=== PATIENT | male | born 1960 | race Caucasian/White ===

== ENCOUNTER 2018-02-26 15:33 | Inpatient (IN) | payer OTHER, SELFPAY ==
[2018-02-26] VITALS (10 sets, daily range): BP systolic 123–143; BP diastolic 84–99; PULSE 104–137; RESP 17–26; TEMP 36.9–37.3; O2SAT 96–100; BMI 27.9; BMI 24.9
--- NOTE | 2018-02-26 15:52 | DI.RAD.S_ITS ---
PROCEDURE: XR CHEST 1V INDICATIONS: chest pain TECHNIQUE: One view of the chest was acquired. COMPARISON: None. FINDINGS: Surgical changes and devices: None. Lungs and pleura: No pleural effusions or pneumothorax. No acute consolidation. Scattered subsegmental atelectasis and/or scarring Mediastinum: Mediastinal contours appear normal. Heart size is normal. Bones and chest wall: No suspicious bony lesions. Overlying soft tissues appear unremarkable. IMPRESSION: No acute disease. Dictated by: Quoc Higgins M.D. on 02/26/2018 at 17:05 Approved by: Quoc Higgins M.D. on 02/26/2018 at 17:06
[2018-02-26 16:25] LABS: Add Manual Diff / Slide Review NO; Basophils Absolute Auto 100 /uL (0-100); Basophils Percent Auto 0.8 % (0-2); Eosinophils Absolute Auto 200 /uL (0-450); Eosinophils Percent Auto 2.5 % (2-4); Hematocrit 45.7 % (41-53); Hemoglobin 15.2 g/dL (13.5-17.5); Lymphocytes Absolute Auto 700 /uL (1100-4500); Lymphocytes Percent Auto 8.7 % (25-40); Mean Corpuscular HGB Conc 33.3 % (30-36); Mean Corpuscular Hemoglobin 26.5 PG (26-34); Mean Corpuscular Volume 79.5 fL (80-100); Monocytes Absolute Auto 900 /uL (0-900); Monocytes Percent Auto 10.5 % (3-14); Neutrophils Absolute Auto 6600 /uL (1500-7000); Neutrophils Percent Auto 77.5 % (50-75); Platelet Count 245 X10^3/uL (150-400); Red Blood Cell Count 5.74 X10^6/uL (4.5-5.9); Red Cell Distribution Width 16.1 % (11.6-14.8); White Blood Cell Count 8.5 X10^3/uL (4.5-11.0)
[2018-02-26 16:39] LABS: Alanine Aminotransferase 30 IU/L (21-72); Albumin 4.3 g/dL (3.5-5.0); Albumin Globulin Ratio 1.3 (1.0-2.8); Alkaline Phosphatase 65 U/L (38-126); Aspartate Aminotransferase 28 IU/L (17-59); BUN Creatinine Ratio 12.9 (6-22); Bilirubin Total 0.6 mg/dL (0.2-1.3); Blood Urea Nitrogen 9 mg/dL (9-20); Calcium 9.4 mg/dL (8.4-10.2); Carbon Dioxide 22 mmol/L (22-32); Chloride 108 mmol/L (98-107); Creatine Kinase 44 U/L (55-170); Estimated Glomerular Filt Rate > 60.0 mL/min (>60); Globulin 3.3 g/dL (1.7-4.1); Glucose 77 mg/dL (70-100); HEMOLYSIS 38 (0-50); Lipase 101 U/L (23-300); PTT Partial Thromboplastin Tim 36 SECONDS (26.4-36.2); Potassium 3.9 mmol/L (3.4-5.1); Sodium 141 mmol/L (137-145); Total Protein 7.6 g/dL (6.3-8.2)
[2018-02-26 16:50] LABS: Troponin I < 0.012 ng/mL (0.01-0.034)
--- NOTE | 2018-02-26 17:00 | ED.URI ---
HPI - URI/Sore Throat <ASTRID Adkins - Last Filed: 02/26/18 22:31> General Chief Complaint: Upper Respiratory Symptoms Stated Complaint: cold or flu symptoms Time Seen by Provider: 02/26/18 16:11 Source: patient Mode of arrival: ambulatory Limitations: no limitations History of Present Illness HPI Narrative: 57-year-old male with history of hypo thyroidism as a former smoker here for complaint of cold-like symptoms over the past several days. He has had nasal congestion cough and generalized malaise with chills over this timeframe. He has tolerated p.o. intake. He does report that he has recently moved across country to this area for a new job that he has started yet and has been sleeping in his vehicle until his new job starts. He denies any chest pain. No shortness of breath. He denies any stressors or relievers of his symptoms. He denies any other concerns or complaints at this timeframe. Related Data Home Medications Medication Instructions Recorded Confirmed Antianxiety Med 1 dose PO PRN PRN 02/26/18 02/26/18 esomeprazole magnesium [Nexium] 20 mg PO PRN PRN 02/26/18 02/26/18 levothyroxine 1 dose PO DAILY 02/26/18 02/26/18 Allergies Allergy/AdvReac Type Severity Reaction Status Date / Time Penicillins Allergy Verified 02/26/18 17:00 Review of Systems <ASTRID Adkins - Last Filed: 02/26/18 22:31> Constitutional Reports chills and Reports malaise Eyes Denies change in vision, Denies eye discharge, Denies irritation and Denies loss of vision ENT Ears, Nose, Mouth, and Throat: Denies change in voice, Reports nasal discharge, Denies neck pain and Denies sore throat Cardiovascular Denies chest pain, Denies irregular heart rhythm, Denies lightheadedness, Denies palpitations, Denies dyspnea, Denies dyspnea on exertion and Denies orthopnea Respiratory Denies cough, Denies dyspnea, Denies dyspnea on exertion and Denies wheezing Gastrointestinal Gastrointestinal: Denies abdominal pain, Denies change in bowel habits, Denies diarrhea, Denies nausea and Denies vomiting Genitourinary Denies hematuria, Denies flank pain, Denies urinary incontinence and Denies urinary urgency Musculoskeletal Denies neck pain Integumentary/Breasts Denies pruritus, Denies erythema, Denies rash and Denies wounds Neurologic Denies confusion and Denies loss of vision Psychiatric Denies anxiety, Denies confusion, Denies depression, Denies homicidal ideation and Denies suicidal ideation Endocrine Denies palpitations Hematologic/Lymphatic Denies easy bruising Allergic/Immunologic Denies wheezing Exam <ASTRID Adkins - Last Filed: 02/26/18 22:31> Initial Vital Signs Initial Vital Signs: Vital Signs Temperature 98.7 F 02/26/18 15:47 Pulse Rate 137 H 02/26/18 15:47 Respiratory Rate 17 02/26/18 15:47 Blood Pressure 138/91 H 02/26/18 15:47 Pulse Oximetry 97 02/26/18 15:47 Const General: cooperative and well developed Nutritional Appearance: well nourished Orientation: alert, awake, oriented x3 and not confused HENRI Mouth: oral mucosae normal, oropharynx normal and moist mucous membranes Eyes Conjunctivae: conjunctivae normal Sclera: sclerae normal Pupils: PERRL EOM: EOM intact bilaterally Resp Effort & Inspection: normal respiratory effort, able to speak in complete sentences, no respiratory distress and no use of accessory muscles Auscultation: clear to auscultation bilaterally, no rales, no rhonchi and no wheezes Cardio Rate: regular rate Rhythm: regular rhythm Heart Sounds: no click, no gallops, no murmurs and no rubs Pulses: normal peripheral pulses GI Inspection: non-distended Palpation: soft, no hepatosplenomegaly, No guarding, No pulsatile mass and No tender Auscultation: normal bowel sounds Skin General: no rashes or lesions noted, No jaundice and No petechiae Neuro General: alert, oriented x3, gait normal and no focal motor deficits Speech: speech normal <Rubi Trotter DO - Last Filed: 02/27/18 04:27> Initial Vital Signs Initial Vital Signs: Vital Signs Temperature 98.7 F 02/26/18 15:47 Pulse Rate 137 H 02/26/18 15:47 Respiratory Rate 17 02/26/18 15:47 Blood Pressure 138/91 H 02/26/18 15:47 Pulse Oximetry 97 02/26/18 15:47 Course <ASTRID Adkins - Last Filed: 02/26/18 22:31> Orders Ordered: ED Orders 02/26/18 21:27 Blood Culture Stat 02/26/18 22:30 Respiratory Panel Stat 02/26/18 22:49 Consult to Dietitian, Adult Routine 02/26/18 22:56 Education, smoking cessation ONGOING 02/26/18 23:45 UA Complete [Urinalysis and Microscopic] Stat 02/27/18 BNP [B Type Natriuretic Peptide] Stat 02/27/18 00:12 Troponin I Q6H 02/27/18 00:20 Urine Drug Screen, Rapid Stat 02/27/18 01:06 PEP - Flutter Valve TID 02/27/18 01:31 EC echo doppler complete Routine 02/27/18 06:00 Chest [XR chest 2V] Routine Troponin I Q6H Acetaminophen (Tylenol) 650 mg PO Q6HR PRN PRN Reason: As Needed for Fever/Mild Pain Albuterol (Proventil) 1.25 mg INH RTQ6HR LUCY Last Admin: 02/27/18 04:07 Dose: Not Given Benzonatate (Tessalon Perles) 100 mg PO TID PRN PRN Reason: Cough Last Admin: 02/27/18 01:38 Dose: 100 mg Guaifenesin (Mucinex) 600 mg PO BID [facility] Heparin Sodium (Porcine) (Heparin) 5,000 unit SUBCUT BID [facility] Last Admin: 02/27/18 01:02 Dose: 5,000 unit Sodium Chloride (Normal Saline 0.9%) 1,000 mls @ 75 mls/hr IV CONT [facility] Last Admin: 02/26/18 23:53 Dose: 75 mls/hr Oseltamivir Phosphate (Tamiflu) 75 mg PO BID [facility]Y Pantoprazole Sodium (Protonix) 40 mg PO 0700,2100 [facility] Discontinued Medications Guaifenesin (Mucinex) 600 mg PO NOW ONE Stop: 02/27/18 01:31 Last Admin: 02/27/18 02:14 Dose: 600 mg Sodium Chloride (Normal Saline 0.9%) 1,000 mls @ 1,000 mls/hr IV BOLUS ONE Stop: 02/26/18 18:03 Last Infusion: 02/26/18 18:03 Dose: 0 mls/hr Admin: 02/26/18 17:14 Dose: 1,000 mls/hr Sodium Chloride (Normal Saline 0.9%) 1,000 mls @ 1,000 mls/hr IV BOLUS ONE Stop: 02/26/18 18:44 Last Infusion: 02/26/18 19:24 Dose: 0 mls/hr Admin: 02/26/18 18:03 Dose: 1,000 mls/hr Ketorolac Tromethamine (Toradol) 30 mg IV NOW ONE Stop: 02/26/18 18:10 Last Admin: 02/26/18 18:10 Dose: 30 mg Oseltamivir Phosphate (Tamiflu) 75 mg PO BID LUCY Oseltamivir Phosphate (Tamiflu) 75 mg PO NOW ONE Stop: 02/27/18 01:31 Last Admin: 02/27/18 01:37 Dose: 75 mg Vital Signs - 8 hr 02/26/18 20:46 02/26/18 22:36 02/26/18 22:56 Temperature 98.4 F Pulse Rate 120 H 119 H Respiratory Rate 24 19 Blood Pressure 143/99 H Blood Pressure [Left Arm] 133/87 Pulse Oximetry 96 98 98 02/26/18 23:45 02/27/18 01:26 Temperature 98.9 F Pulse Rate 95 H Respiratory Rate 20 Blood Pressure 154/97 H Blood Pressure [Left Arm] Pulse Oximetry 98 98 <Rubi Trotter, DO - Last Filed: 02/27/18 04:27> Orders Ordered: ED Orders 02/26/18 21:27 Blood Culture Stat 02/26/18 22:30 Respiratory Panel Stat 02/26/18 22:49 Consult to Dietitian, Adult Routine 02/26/18 22:56 Education, smoking cessation ONGOING 02/26/18 23:45 UA Complete [Urinalysis and Microscopic] Stat 02/27/18 BNP [B Type Natriuretic Peptide] Stat 02/27/18 00:12 Troponin I Q6H 02/27/18 00:20 Urine Drug Screen, Rapid Stat 02/27/18 01:06 PEP - Flutter Valve TID 02/27/18 01:31 EC echo doppler complete Routine 02/27/18 06:00 Chest [XR chest 2V] Routine Troponin I Q6H Acetaminophen (Tylenol) 650 mg PO Q6HR PRN PRN Reason: As Needed for Fever/Mild Pain Albuterol (Proventil) 1.25 mg INH RTQ6HR LUCY Last Admin: 02/27/18 04:07 Dose: Not Given Benzonatate (Tessalon Perles) 100 mg PO TID PRN PRN Reason: Cough Last Admin: 02/27/18 01:38 Dose: 100 mg Guaifenesin (Mucinex) 600 mg PO BID [facility] Heparin Sodium (Porcine) (Heparin) 5,000 unit SUBCUT BID [facility] Last Admin: 02/27/18 01:02 Dose: 5,000 unit Sodium Chloride (Normal Saline 0.9%) 1,000 mls @ 75 mls/hr IV CONT [facility] Last Admin: 02/26/18 23:53 Dose: 75 mls/hr Oseltamivir Phosphate (Tamiflu) 75 mg PO BID [facility] Pantoprazole Sodium (Protonix) 40 mg PO 0700,2100 [facility] Discontinued Medications Guaifenesin (Mucinex) 600 mg PO NOW ONE Stop: 02/27/18 01:31 Last Admin: 02/27/18 02:14 Dose: 600 mg Sodium Chloride (Normal Saline 0.9%) 1,000 mls @ 1,000 mls/hr IV BOLUS ONE Stop: 02/26/18 18:03 Last Infusion: 02/26/18 18:03 Dose: 0 mls/hr Admin: 02/26/18 17:14 Dose: 1,000 mls/hr Sodium Chloride (Normal Saline 0.9%) 1,000 mls @ 1,000 mls/hr IV BOLUS ONE Stop: 02/26/18 18:44 Last Infusion: 02/26/18 19:24 Dose: 0 mls/hr Admin: 02/26/18 18:03 Dose: 1,000 mls/hr Ketorolac Tromethamine (Toradol) 30 mg IV NOW ONE Stop: 02/26/18 18:10 Last Admin: 02/26/18 18:10 Dose: 30 mg Oseltamivir Phosphate (Tamiflu) 75 mg PO BID [facility] Oseltamivir Phosphate (Tamiflu) 75 mg PO NOW ONE Stop: 02/27/18 01:31 Last Admin: 02/27/18 01:37 Dose: 75 mg Vital Signs - 8 hr 02/26/18 20:46 02/26/18 22:36 02/26/18 22:56 Temperature 98.4 F Pulse Rate 120 H 119 H Respiratory Rate 24 19 Blood Pressure 143/99 H Blood Pressure [Left Arm] 133/87 Pulse Oximetry 96 98 98 02/26/18 23:45 02/27/18 01:26 Temperature 98.9 F Pulse Rate 95 H Respiratory Rate 20 Blood Pressure 154/97 H Blood Pressure [Left Arm] Pulse Oximetry 98 98 MDM - URI/Sore Throat <ASTRID Adkins - Last Filed: 02/26/18 22:31> Lab Data Result diagrams: 02/26/18 16:15 02/26/18 16:15 Lab Results 02/26/18 02/26/18 02/26/18 Range/Units 15:35 15:53 16:15 WBC 8.5 (4.5-11.0) X10^3/uL RBC 5.74 (4.5-5.9) X10^6/uL Hgb 15.2 (13.5-17.5) g/dL Hct 45.7 (41-53) % MCV 79.5 L (80-100) fL MCH 26.5 (26-34) PG MCHC 33.3 (30-36) % RDW 16.1 H (11.6-14.8) % Plt Count 245 (150-400) X10^3/uL Neut % (Auto) 77.5 H (50-75) % Lymph % (Auto) 8.7 L (25-40) % [place] % (Auto) 10.5 (3-14) % Eos % (Auto) 2.5 (2-4) % Baso % (Auto) 0.8 (0-2) % Neut # (Auto) 6600 (1720-5512) /uL Lymph # (Auto) 700 L (7198-8212) /uL [place] # (Auto) 900 (0-900) /uL Eos # (Auto) 200 (0-450) /uL Baso # (Auto) 100 (0-100) /uL PT (10.1-12.7) SECONDS INR (0.9-1.3) APTT (26.4-36.2) SECONDS D-Dimer (<230) ng/mL Sodium (137-145) mmol/L Potassium (3.4-5.1) mmol/L Chloride (98-107) mmol/L Carbon Dioxide (22-32) mmol/L BUN (9-20) mg/dL Creatinine (0.66-1.25) mg/dL Estimated GFR (>60) mL/min BUN/Creatinine Ratio (6-22) Glucose (70-100) mg/dL Lactate (0.7-2.1) mmol/L Calcium (8.4-10.2) mg/dL Magnesium 2.1 (1.6-2.3) mg/dL Total Bilirubin (0.2-1.3) mg/dL AST (17-59) IU/L ALT (21-72) IU/L Alkaline Phosphatase (38-126) U/L Total Creatine Kinase (55-170) U/L CK-MB (CK-2) CK-MB (CK-2) Rel Index Troponin I (0.01-0.034) ng/mL B-Natriuretic Peptide < 100 (<100) Total Protein (6.3-8.2) g/dL Albumin (3.5-5.0) g/dL Globulin (1.7-4.1) g/dL Albumin/Globulin Ratio (1.0-2.8) Lipase (23-300) U/L Procalcitonin (<0.5) ng/mL TSH (0.47-4.68) uIU/mL Urine Color Urine Appearance Urine pH (4.5-8.0) Ur Specific [place] (1.000-1.035) Urine Protein (Negative) Urine Glucose (UA) (Negative) g/dL Urine Ketones (NEGATIVE) Urine Occult Blood (Negative) Urine Nitrate (Negative) Urine Bilirubin (NEGATIVE) Urine Urobilinogen (0.2) E.U./dL Ur Leukocyte Esterase (NEGATIVE) Urine Opiates Screen (Negative) Ur Oxycodone Screen (Negative) Urine Methadone Screen (Negative) Ur Barbiturates Screen (Negative) U Tricyclic Antidepress (Negative) Ur Phencyclidine Scrn (Negative) Ur Amphetamines Screen (Negative) U Methamphetamines Scrn (Negative) Ur MDMA Scrn (Ecstasy) (Negative) U Benzodiazepines Scrn (Negative) Urine Cocaine Screen (Negative) U Marijuana (THC) Screen (Negative) Ethyl Alcohol mg/dL Chlamy pneumoniae PCR (Not Detect) Adenovirus (PCR) (Not Detect) B.parapertussis DNA PCR (Not Detect) Coronavirus OC43 (PCR) (Not Detect) Coronavirus HKU1 (PCR) (Not Detect) Coronavirus 229E (PCR) (Not Detect) Coronavirus NL63 (PCR) (Not Detect) Human Metapneumovir PCR (Not Detect) Influenza Type A (PCR) (Not Detect) Influenza Type B (PCR) (Not Detect) Influenza A & B (PCR) (Negative) M. pneumoniae (PCR) (Not Detect) Parainfluenza 1 (PCR) (Not Detect) Parainfluenza 2 (PCR) (Not Detect) Parainfluenza 3 (PCR) (Not Detect) Parainfluenza 4 (PCR) (Not Detect) RSV (PCR) (Not Detect) Entero/Rhino (PCR) (Not Detect) 02/26/18 02/26/18 02/26/18 Range/Units 16:15 16:15 16:15 WBC (4.5-11.0) X10^3/uL RBC (4.5-5.9) X10^6/uL Hgb (13.5-17.5) g/dL Hct (41-53) % MCV (80-100) fL MCH (26-34) PG MCHC (30-36) % RDW (11.6-14.8) % Plt Count (150-400) X10^3/uL Neut % (Auto) (50-75) % Lymph % (Auto) (25-40) % [place] % (Auto) (3-14) % Eos % (Auto) (2-4) % Baso % (Auto) (0-2) % Neut # (Auto) (9435-1123) /uL Lymph # (Auto) (1743-8500) /uL [place] # (Auto) (0-900) /uL Eos # (Auto) (0-450) /uL Baso # (Auto) (0-100) /uL PT 12.0 (10.1-12.7) SECONDS INR 1.0 (0.9-1.3) APTT 36 (26.4-36.2) SECONDS D-Dimer 233 H (<230) ng/mL Sodium 141 (137-145) mmol/L Potassium 3.9 (3.4-5.1) mmol/L Chloride 108 H (98-107) mmol/L Carbon Dioxide 22 (22-32) mmol/L BUN 9 (9-20) mg/dL Creatinine 0.70 (0.66-1.25) mg/dL Estimated GFR > 60.0 (>60) mL/min BUN/Creatinine Ratio 12.9 (6-22) Glucose 77 (70-100) mg/dL Lactate (0.7-2.1) mmol/L Calcium 9.4 (8.4-10.2) mg/dL Magnesium (1.6-2.3) mg/dL Total Bilirubin 0.6 (0.2-1.3) mg/dL AST 28 (17-59) IU/L ALT 30 (21-72) IU/L Alkaline Phosphatase 65 (38-126) U/L Total Creatine Kinase 44 L (55-170) U/L CK-MB (CK-2) TNP CK-MB (CK-2) Rel Index TNP Troponin I < 0.012 (0.01-0.034) ng/mL B-Natriuretic Peptide (<100) Total Protein 7.6 (6.3-8.2) g/dL Albumin 4.3 (3.5-5.0) g/dL Globulin 3.3 (1.7-4.1) g/dL Albumin/Globulin Ratio 1.3 (1.0-2.8) Lipase 101 (23-300) U/L Procalcitonin (<0.5) ng/mL TSH (0.47-4.68) uIU/mL Urine Color Urine Appearance Urine pH (4.5-8.0) Ur Specific [place] (1.000-1.035) Urine Protein (Negative) Urine Glucose (UA) (Negative) g/dL Urine Ketones (NEGATIVE) Urine Occult Blood (Negative) Urine Nitrate (Negative) Urine Bilirubin (NEGATIVE) Urine Urobilinogen (0.2) E.U./dL Ur Leukocyte Esterase (NEGATIVE) Urine Opiates Screen (Negative) Ur Oxycodone Screen (Negative) Urine Methadone Screen (Negative) Ur Barbiturates Screen (Negative) U Tricyclic Antidepress (Negative) Ur Phencyclidine Scrn (Negative) Ur Amphetamines Screen (Negative) U Methamphetamines Scrn (Negative) Ur MDMA Scrn (Ecstasy) (Negative) U Benzodiazepines Scrn (Negative) Urine Cocaine Screen (Negative) U Marijuana (THC) Screen (Negative) Ethyl Alcohol mg/dL Chlamy pneumoniae PCR (Not Detect) Adenovirus (PCR) (Not Detect) B.parapertussis DNA PCR (Not Detect) Coronavirus OC43 (PCR) (Not Detect) Coronavirus HKU1 (PCR) (Not Detect) Coronavirus 229E (PCR) (Not Detect) Coronavirus NL63 (PCR) (Not Detect) Human Metapneumovir PCR (Not Detect) Influenza Type A (PCR) (Not Detect) Influenza Type B (PCR) (Not Detect) Influenza A & B (PCR) (Negative) M. pneumoniae (PCR) (Not Detect) Parainfluenza 1 (PCR) (Not Detect) Parainfluenza 2 (PCR) (Not Detect) Parainfluenza 3 (PCR) (Not Detect) Parainfluenza 4 (PCR) (Not Detect) RSV (PCR) (Not Detect) Entero/Rhino (PCR) (Not Detect) 02/26/18 02/26/18 02/26/18 Range/Units 16:15 17:41 17:41 WBC (4.5-11.0) X10^3/uL RBC (4.5-5.9) X10^6/uL Hgb (13.5-17.5) g/dL Hct (41-53) % MCV (80-100) fL MCH (26-34) PG MCHC (30-36) % RDW (11.6-14.8) % Plt Count (150-400) X10^3/uL Neut % (Auto) (50-75) % Lymph % (Auto) (25-40) % [place] % (Auto) (3-14) % Eos % (Auto) (2-4) % Baso % (Auto) (0-2) % Neut # (Auto) (2472-8978) /uL Lymph # (Auto) (5688-7171) /uL [place] # (Auto) (0-900) /uL Eos # (Auto) (0-450) /uL Baso # (Auto) (0-100) /uL PT (10.1-12.7) SECONDS INR (0.9-1.3) APTT (26.4-36.2) SECONDS D-Dimer (<230) ng/mL Sodium (137-145) mmol/L Potassium (3.4-5.1) mmol/L Chloride (98-107) mmol/L Carbon Dioxide (22-32) mmol/L BUN (9-20) mg/dL Creatinine (0.66-1.25) mg/dL Estimated GFR (>60) mL/min BUN/Creatinine Ratio (6-22) Glucose (70-100) mg/dL Lactate 1.9 (0.7-2.1) mmol/L Calcium (8.4-10.2) mg/dL Magnesium (1.6-2.3) mg/dL Total Bilirubin (0.2-1.3) mg/dL AST (17-59) IU/L ALT (21-72) IU/L Alkaline Phosphatase (38-126) U/L Total Creatine Kinase (55-170) U/L CK-MB (CK-2) CK-MB (CK-2) Rel Index Troponin I (0.01-0.034) ng/mL B-Natriuretic Peptide (<100) Total Protein (6.3-8.2) g/dL Albumin (3.5-5.0) g/dL Globulin (1.7-4.1) g/dL Albumin/Globulin Ratio (1.0-2.8) Lipase (23-300) U/L Procalcitonin < 0.05 (<0.5) ng/mL TSH (0.47-4.68) uIU/mL Urine Color Urine Appearance Urine pH (4.5-8.0) Ur Specific [place] (1.000-1.035) Urine Protein (Negative) Urine Glucose (UA) (Negative) g/dL Urine Ketones (NEGATIVE) Urine Occult Blood (Negative) Urine Nitrate (Negative) Urine Bilirubin (NEGATIVE) Urine Urobilinogen (0.2) E.U./dL Ur Leukocyte Esterase (NEGATIVE) Urine Opiates Screen (Negative) Ur Oxycodone Screen (Negative) Urine Methadone Screen (Negative) Ur Barbiturates Screen (Negative) U Tricyclic Antidepress (Negative) Ur Phencyclidine Scrn (Negative) Ur Amphetamines Screen (Negative) U Methamphetamines Scrn (Negative) Ur MDMA Scrn (Ecstasy) (Negative) U Benzodiazepines Scrn (Negative) Urine Cocaine Screen (Negative) U Marijuana (THC) Screen (Negative) Ethyl Alcohol < 10 mg/dL Chlamy pneumoniae PCR (Not Detect) Adenovirus (PCR) (Not Detect) B.parapertussis DNA PCR (Not Detect) Coronavirus OC43 (PCR) (Not Detect) Coronavirus HKU1 (PCR) (Not Detect) Coronavirus 229E (PCR) (Not Detect) Coronavirus NL63 (PCR) (Not Detect) Human Metapneumovir PCR (Not Detect) Influenza Type A (PCR) (Not Detect) Influenza Type B (PCR) (Not Detect) Influenza A & B (PCR) (Negative) M. pneumoniae (PCR) (Not Detect) Parainfluenza 1 (PCR) (Not Detect) Parainfluenza 2 (PCR) (Not Detect) Parainfluenza 3 (PCR) (Not Detect) Parainfluenza 4 (PCR) (Not Detect) RSV (PCR) (Not Detect) Entero/Rhino (PCR) (Not Detect) 02/26/18 02/26/18 02/26/18 Range/Units 19:10 22:30 Unknown WBC (4.5-11.0) X10^3/uL RBC (4.5-5.9) X10^6/uL Hgb (13.5-17.5) g/dL Hct (41-53) % MCV (80-100) fL MCH (26-34) PG MCHC (30-36) % RDW (11.6-14.8) % Plt Count (150-400) X10^3/uL Neut % (Auto) (50-75) % Lymph % (Auto) (25-40) % [place] % (Auto) (3-14) % Eos % (Auto) (2-4) % Baso % (Auto) (0-2) % Neut # (Auto) (2141-4265) /uL Lymph # (Auto) (1356-3057) /uL [place] # (Auto) (0-900) /uL Eos # (Auto) (0-450) /uL Baso # (Auto) (0-100) /uL PT (10.1-12.7) SECONDS INR (0.9-1.3) APTT (26.4-36.2) SECONDS D-Dimer (<230) ng/mL Sodium (137-145) mmol/L Potassium (3.4-5.1) mmol/L Chloride (98-107) mmol/L Carbon Dioxide (22-32) mmol/L BUN (9-20) mg/dL Creatinine (0.66-1.25) mg/dL Estimated GFR (>60) mL/min BUN/Creatinine Ratio (6-22) Glucose (70-100) mg/dL Lactate (0.7-2.1) mmol/L Calcium (8.4-10.2) mg/dL Magnesium (1.6-2.3) mg/dL Total Bilirubin (0.2-1.3) mg/dL AST (17-59) IU/L ALT (21-72) IU/L Alkaline Phosphatase (38-126) U/L Total Creatine Kinase (55-170) U/L CK-MB (CK-2) CK-MB (CK-2) Rel Index Troponin I (0.01-0.034) ng/mL B-Natriuretic Peptide (<100) Total Protein (6.3-8.2) g/dL Albumin (3.5-5.0) g/dL Globulin (1.7-4.1) g/dL Albumin/Globulin Ratio (1.0-2.8) Lipase (23-300) U/L Procalcitonin (<0.5) ng/mL TSH 4.88 H (0.47-4.68) uIU/mL Urine Color Urine Appearance Urine pH (4.5-8.0) Ur Specific [place] (1.000-1.035) Urine Protein (Negative) Urine Glucose (UA) (Negative) g/dL Urine Ketones (NEGATIVE) Urine Occult Blood (Negative) Urine Nitrate (Negative) Urine Bilirubin (NEGATIVE) Urine Urobilinogen (0.2) E.U./dL Ur Leukocyte Esterase (NEGATIVE) Urine Opiates Screen (Negative) Ur Oxycodone Screen (Negative) Urine Methadone Screen (Negative) Ur Barbiturates Screen (Negative) U Tricyclic Antidepress (Negative) Ur Phencyclidine Scrn (Negative) Ur Amphetamines Screen (Negative) U Methamphetamines Scrn (Negative) Ur MDMA Scrn (Ecstasy) (Negative) U Benzodiazepines Scrn (Negative) Urine Cocaine Screen (Negative) U Marijuana (THC) Screen (Negative) Ethyl Alcohol mg/dL Chlamy pneumoniae PCR Not detected (Not Detect) Adenovirus (PCR) Not detected (Not Detect) B.parapertussis DNA PCR Not detected (Not Detect) Coronavirus OC43 (PCR) Not detected (Not Detect) Coronavirus HKU1 (PCR) Not detected (Not Detect) Coronavirus 229E (PCR) Not detected (Not Detect) Coronavirus NL63 (PCR) Not detected (Not Detect) Human Metapneumovir PCR Not detected (Not Detect) Influenza Type A (PCR) Detected H (Not Detect) Influenza Type B (PCR) Not detected (Not Detect) Influenza A & B (PCR) Negative (Negative) M. pneumoniae (PCR) Not detected (Not Detect) Parainfluenza 1 (PCR) Not detected (Not Detect) Parainfluenza 2 (PCR) Not detected (Not Detect) Parainfluenza 3 (PCR) Not detected (Not Detect) Parainfluenza 4 (PCR) Not detected (Not Detect) RSV (PCR) Not detected (Not Detect) Entero/Rhino (PCR) Not detected (Not Detect) 02/27/18 02/27/18 02/27/18 Range/Units 00:12 00:20 00:20 WBC (4.5-11.0) X10^3/uL RBC (4.5-5.9) X10^6/uL Hgb (13.5-17.5) g/dL Hct (41-53) % MCV (80-100) fL MCH (26-34) PG MCHC (30-36) % RDW (11.6-14.8) % Plt Count (150-400) X10^3/uL Neut % (Auto) (50-75) % Lymph % (Auto) (25-40) % [place] % (Auto) (3-14) % Eos % (Auto) (2-4) % Baso % (Auto) (0-2) % Neut # (Auto) (2885-9229) /uL Lymph # (Auto) (4936-2030) /uL [place] # (Auto) (0-900) /uL Eos # (Auto) (0-450) /uL Baso # (Auto) (0-100) /uL PT (10.1-12.7) SECONDS INR (0.9-1.3) APTT (26.4-36.2) SECONDS D-Dimer (<230) ng/mL Sodium (137-145) mmol/L Potassium (3.4-5.1) mmol/L Chloride (98-107) mmol/L Carbon Dioxide (22-32) mmol/L BUN (9-20) mg/dL Creatinine (0.66-1.25) mg/dL Estimated GFR (>60) mL/min BUN/Creatinine Ratio (6-22) Glucose (70-100) mg/dL Lactate (0.7-2.1) mmol/L Calcium (8.4-10.2) mg/dL Magnesium (1.6-2.3) mg/dL Total Bilirubin (0.2-1.3) mg/dL AST (17-59) IU/L ALT (21-72) IU/L Alkaline Phosphatase (38-126) U/L Total Creatine Kinase (55-170) U/L CK-MB (CK-2) CK-MB (CK-2) Rel Index Troponin I < 0.012 (0.01-0.034) ng/mL B-Natriuretic Peptide (<100) Total Protein (6.3-8.2) g/dL Albumin (3.5-5.0) g/dL Globulin (1.7-4.1) g/dL Albumin/Globulin Ratio (1.0-2.8) Lipase (23-300) U/L Procalcitonin (<0.5) ng/mL TSH (0.47-4.68) uIU/mL Urine Color Yellow Urine Appearance Clear Urine pH 7.5 (4.5-8.0) Ur Specific [place] 1.015 (1.000-1.035) Urine Protein Negative (Negative) Urine Glucose (UA) Negative (Negative) g/dL Urine Ketones Negative (NEGATIVE) Urine Occult Blood Negative (Negative) Urine Nitrate Negative (Negative) Urine Bilirubin Negative (NEGATIVE) Urine Urobilinogen 0.2 (0.2) E.U./dL Ur Leukocyte Esterase Negative (NEGATIVE) Urine Opiates Screen Negative (Negative) Ur Oxycodone Screen Negative (Negative) Urine Methadone Screen Negative (Negative) Ur Barbiturates Screen Negative (Negative) U Tricyclic Antidepress Negative (Negative) Ur Phencyclidine Scrn Negative (Negative) Ur Amphetamines Screen Negative (Negative) U Methamphetamines Scrn Negative (Negative) Ur MDMA Scrn (Ecstasy) Negative (Negative) U Benzodiazepines Scrn Negative (Negative) Urine Cocaine Screen Negative (Negative) U Marijuana (THC) Screen Negative (Negative) Ethyl Alcohol mg/dL Chlamy pneumoniae PCR (Not Detect) Adenovirus (PCR) (Not Detect) B.parapertussis DNA PCR (Not Detect) Coronavirus OC43 (PCR) (Not Detect) Coronavirus HKU1 (PCR) (Not Detect) Coronavirus 229E (PCR) (Not Detect) Coronavirus NL63 (PCR) (Not Detect) Human Metapneumovir PCR (Not Detect) Influenza Type A (PCR) (Not Detect) Influenza Type B (PCR) (Not Detect) Influenza A & B (PCR) (Negative) M. pneumoniae (PCR) (Not Detect) Parainfluenza 1 (PCR) (Not Detect) Parainfluenza 2 (PCR) (Not Detect) Parainfluenza 3 (PCR) (Not Detect) Parainfluenza 4 (PCR) (Not Detect) RSV (PCR) (Not Detect) Entero/Rhino (PCR) (Not Detect) Urine Dip Bedside Urine Glucose Negative Bedside Urine Bilirubin - Negative Bedside Urine Ketone - Negative Urine Specific [place] 1.010 Bedside Urine Occult Blood - Negative Bedside Urine pH 7.5 Bedside Urine Protein - Negative Bedside Urine Urobilinogen - Negative Bedside Urine Nitrite - Negative Bedside Urine Leukocytes - Negative Esterase Imaging Data Chest x-ray: Radiologist's impression: [address] [address] XRay Report Signed Patient: Naveed Mayen [facility]#: [id number] : 9Acct:[id number] Age/Sex: 57 / MDate of Service: 02/26/18 Loc: ED Accession Number: [id number] Procedure: XR chest 1V Ordering Provider: Wes Serrano D.O. PROCEDURE: XR CHEST 1V INDICATIONS: chest pain TECHNIQUE: One view of the chest was acquired. COMPARISON: None. FINDINGS: Surgical changes and devices: None. Lungs and pleura: No pleural effusions or pneumothorax. No acute consolidation. Scattered subsegmental atelectasis and/or scarring Mediastinum: Mediastinal contours appear normal. Heart size is normal. Bones and chest wall: No suspicious bony lesions. Overlying soft tissues appear unremarkable. IMPRESSION: No acute disease. Dictated by: Quoc Higgins M.D. on 02/26/2018 at 17:05 Approved by: Quoc Higgins M.D. on 02/26/2018 at 17:06 ECG Data Interpretation: EKG shows a sinus tachycardia with no ST elevation or depression. No ectopy. Ventricular rate of 135. MDM Narrative Medical decision making narrative: CBC and Chem panel were obtained were unremarkable. Cardiac enzymes were obtained were negative. D-dimer was at 2:30 a.m. less than 500 for concern for D-dimer. EKG shows sinus tachycardia no ST elevation or depression no ectopy. Chest x-ray was obtained was negative. Influenza swab was obtained and was negative. Procalcitonin and lactate were negative. Patient was given 2 L of fluids in the emergency room. Heart rate did not improve after fluids. He presents as having a viral upper respiratory infection however, Due to concern for heart rate did not respond to hydration patient is admitted to observation. <Rubi Trotter, DO - Last Filed: 02/27/18 04:27> Lab Data Attestation: I reviewed the patient's lab results. Lab Results 02/26/18 02/26/18 02/26/18 Range/Units 15:35 15:53 16:15 WBC 8.5 (4.5-11.0) X10^3/uL RBC 5.74 (4.5-5.9) X10^6/uL Hgb 15.2 (13.5-17.5) g/dL Hct 45.7 (41-53) % MCV 79.5 L (80-100) fL MCH 26.5 (26-34) PG MCHC 33.3 (30-36) % RDW 16.1 H (11.6-14.8) % Plt Count 245 (150-400) X10^3/uL Neut % (Auto) 77.5 H (50-75) % Lymph % (Auto) 8.7 L (25-40) % [place] % (Auto) 10.5 (3-14) % Eos % (Auto) 2.5 (2-4) % Baso % (Auto) 0.8 (0-2) % Neut # (Auto) 6600 (6720-5196) /uL Lymph # (Auto) 700 L (4932-0901) /uL [place] # (Auto) 900 (0-900) /uL Eos # (Auto) 200 (0-450) /uL Baso # (Auto) 100 (0-100) /uL PT (10.1-12.7) SECONDS INR (0.9-1.3) APTT (26.4-36.2) SECONDS D-Dimer (<230) ng/mL Sodium (137-145) mmol/L Potassium (3.4-5.1) mmol/L Chloride (98-107) mmol/L Carbon Dioxide (22-32) mmol/L BUN (9-20) mg/dL Creatinine (0.66-1.25) mg/dL Estimated GFR (>60) mL/min BUN/Creatinine Ratio (6-22) Glucose (70-100) mg/dL Lactate (0.7-2.1) mmol/L Calcium (8.4-10.2) mg/dL Magnesium 2.1 (1.6-2.3) mg/dL Total Bilirubin (0.2-1.3) mg/dL AST (17-59) IU/L ALT (21-72) IU/L Alkaline Phosphatase (38-126) U/L Total Creatine Kinase (55-170) U/L CK-MB (CK-2) CK-MB (CK-2) Rel Index Troponin I (0.01-0.034) ng/mL B-Natriuretic Peptide < 100 (<100) Total Protein (6.3-8.2) g/dL Albumin (3.5-5.0) g/dL Globulin (1.7-4.1) g/dL Albumin/Globulin Ratio (1.0-2.8) Lipase (23-300) U/L Procalcitonin (<0.5) ng/mL TSH (0.47-4.68) uIU/mL Urine Color Urine Appearance Urine pH (4.5-8.0) Ur Specific [place] (1.000-1.035) Urine Protein (Negative) Urine Glucose (UA) (Negative) g/dL Urine Ketones (NEGATIVE) Urine Occult Blood (Negative) Urine Nitrate (Negative) Urine Bilirubin (NEGATIVE) Urine Urobilinogen (0.2) E.U./dL Ur Leukocyte Esterase (NEGATIVE) Urine Opiates Screen (Negative) Ur Oxycodone Screen (Negative) Urine Methadone Screen (Negative) Ur Barbiturates Screen (Negative) U Tricyclic Antidepress (Negative) Ur Phencyclidine Scrn (Negative) Ur Amphetamines Screen (Negative) U Methamphetamines Scrn (Negative) Ur MDMA Scrn (Ecstasy) (Negative) U Benzodiazepines Scrn (Negative) Urine Cocaine Screen (Negative) U Marijuana (THC) Screen (Negative) Ethyl Alcohol mg/dL Chlamy pneumoniae PCR (Not Detect) Adenovirus (PCR) (Not Detect) B.parapertussis DNA PCR (Not Detect) Coronavirus OC43 (PCR) (Not Detect) Coronavirus HKU1 (PCR) (Not Detect) Coronavirus 229E (PCR) (Not Detect) Coronavirus NL63 (PCR) (Not Detect) Human Metapneumovir PCR (Not Detect) Influenza Type A (PCR) (Not Detect) Influenza Type B (PCR) (Not Detect) Influenza A & B (PCR) (Negative) M. pneumoniae (PCR) (Not Detect) Parainfluenza 1 (PCR) (Not Detect) Parainfluenza 2 (PCR) (Not Detect) Parainfluenza 3 (PCR) (Not Detect) Parainfluenza 4 (PCR) (Not Detect) RSV (PCR) (Not Detect) Entero/Rhino (PCR) (Not Detect) 02/26/18 02/26/18 02/26/18 Range/Units 16:15 16:15 16:15 WBC (4.5-11.0) X10^3/uL RBC (4.5-5.9) X10^6/uL Hgb (13.5-17.5) g/dL Hct (41-53) % MCV (80-100) fL MCH (26-34) PG MCHC (30-36) % RDW (11.6-14.8) % Plt Count (150-400) X10^3/uL Neut % (Auto) (50-75) % Lymph % (Auto) (25-40) % [place] % (Auto) (3-14) % Eos % (Auto) (2-4) % Baso % (Auto) (0-2) % Neut # (Auto) (2296-8848) /uL Lymph # (Auto) (6728-1018) /uL [place] # (Auto) (0-900) /uL Eos # (Auto) (0-450) /uL Baso # (Auto) (0-100) /uL PT 12.0 (10.1-12.7) SECONDS INR 1.0 (0.9-1.3) APTT 36 (26.4-36.2) SECONDS D-Dimer 233 H (<230) ng/mL Sodium 141 (137-145) mmol/L Potassium 3.9 (3.4-5.1) mmol/L Chloride 108 H (98-107) mmol/L Carbon Dioxide 22 (22-32) mmol/L BUN 9 (9-20) mg/dL Creatinine 0.70 (0.66-1.25) mg/dL Estimated GFR > 60.0 (>60) mL/min BUN/Creatinine Ratio 12.9 (6-22) Glucose 77 (70-100) mg/dL Lactate (0.7-2.1) mmol/L Calcium 9.4 (8.4-10.2) mg/dL Magnesium (1.6-2.3) mg/dL Total Bilirubin 0.6 (0.2-1.3) mg/dL AST 28 (17-59) IU/L ALT 30 (21-72) IU/L Alkaline Phosphatase 65 (38-126) U/L Total Creatine Kinase 44 L (55-170) U/L CK-MB (CK-2) TNP CK-MB (CK-2) Rel Index TNP Troponin I < 0.012 (0.01-0.034) ng/mL B-Natriuretic Peptide (<100) Total Protein 7.6 (6.3-8.2) g/dL Albumin 4.3 (3.5-5.0) g/dL Globulin 3.3 (1.7-4.1) g/dL Albumin/Globulin Ratio 1.3 (1.0-2.8) Lipase 101 (23-300) U/L Procalcitonin (<0.5) ng/mL TSH (0.47-4.68) uIU/mL Urine Color Urine Appearance Urine pH (4.5-8.0) Ur Specific [place] (1.000-1.035) Urine Protein (Negative) Urine Glucose (UA) (Negative) g/dL Urine Ketones (NEGATIVE) Urine Occult Blood (Negative) Urine Nitrate (Negative) Urine Bilirubin (NEGATIVE) Urine Urobilinogen (0.2) E.U./dL Ur Leukocyte Esterase (NEGATIVE) Urine Opiates Screen (Negative) Ur Oxycodone Screen (Negative) Urine Methadone Screen (Negative) Ur Barbiturates Screen (Negative) U Tricyclic Antidepress (Negative) Ur Phencyclidine Scrn (Negative) Ur Amphetamines Screen (Negative) U Methamphetamines Scrn (Negative) Ur MDMA Scrn (Ecstasy) (Negative) U Benzodiazepines Scrn (Negative) Urine Cocaine Screen (Negative) U Marijuana (THC) Screen (Negative) Ethyl Alcohol mg/dL Chlamy pneumoniae PCR (Not Detect) Adenovirus (PCR) (Not Detect) B.parapertussis DNA PCR (Not Detect) Coronavirus OC43 (PCR) (Not Detect) Coronavirus HKU1 (PCR) (Not Detect) Coronavirus 229E (PCR) (Not Detect) Coronavirus NL63 (PCR) (Not Detect) Human Metapneumovir PCR (Not Detect) Influenza Type A (PCR) (Not Detect) Influenza Type B (PCR) (Not Detect) Influenza A & B (PCR) (Negative) M. pneumoniae (PCR) (Not Detect) Parainfluenza 1 (PCR) (Not Detect) Parainfluenza 2 (PCR) (Not Detect) Parainfluenza 3 (PCR) (Not Detect) Parainfluenza 4 (PCR) (Not Detect) RSV (PCR) (Not Detect) Entero/Rhino (PCR) (Not Detect) 02/26/18 02/26/18 02/26/18 Range/Units 16:15 17:41 17:41 WBC (4.5-11.0) X10^3/uL RBC (4.5-5.9) X10^6/uL Hgb (13.5-17.5) g/dL Hct (41-53) % MCV (80-100) fL MCH (26-34) PG MCHC (30-36) % RDW (11.6-14.8) % Plt Count (150-400) X10^3/uL Neut % (Auto) (50-75) % Lymph % (Auto) (25-40) % [place] % (Auto) (3-14) % Eos % (Auto) (2-4) % Baso % (Auto) (0-2) % Neut # (Auto) (7162-2065) /uL Lymph # (Auto) (4433-0970) /uL [place] # (Auto) (0-900) /uL Eos # (Auto) (0-450) /uL Baso # (Auto) (0-100) /uL PT (10.1-12.7) SECONDS INR (0.9-1.3) APTT (26.4-36.2) SECONDS D-Dimer (<230) ng/mL Sodium (137-145) mmol/L Potassium (3.4-5.1) mmol/L Chloride (98-107) mmol/L Carbon Dioxide (22-32) mmol/L BUN (9-20) mg/dL Creatinine (0.66-1.25) mg/dL Estimated GFR (>60) mL/min BUN/Creatinine Ratio (6-22) Glucose (70-100) mg/dL Lactate 1.9 (0.7-2.1) mmol/L Calcium (8.4-10.2) mg/dL Magnesium (1.6-2.3) mg/dL Total Bilirubin (0.2-1.3) mg/dL AST (17-59) IU/L ALT (21-72) IU/L Alkaline Phosphatase (38-126) U/L Total Creatine Kinase (55-170) U/L CK-MB (CK-2) CK-MB (CK-2) Rel Index Troponin I (0.01-0.034) ng/mL B-Natriuretic Peptide (<100) Total Protein (6.3-8.2) g/dL Albumin (3.5-5.0) g/dL Globulin (1.7-4.1) g/dL Albumin/Globulin Ratio (1.0-2.8) Lipase (23-300) U/L Procalcitonin < 0.05 (<0.5) ng/mL TSH (0.47-4.68) uIU/mL Urine Color Urine Appearance Urine pH (4.5-8.0) Ur Specific [place] (1.000-1.035) Urine Protein (Negative) Urine Glucose (UA) (Negative) g/dL Urine Ketones (NEGATIVE) Urine Occult Blood (Negative) Urine Nitrate (Negative) Urine Bilirubin (NEGATIVE) Urine Urobilinogen (0.2) E.U./dL Ur Leukocyte Esterase (NEGATIVE) Urine Opiates Screen (Negative) Ur Oxycodone Screen (Negative) Urine Methadone Screen (Negative) Ur Barbiturates Screen (Negative) U Tricyclic Antidepress (Negative) Ur Phencyclidine Scrn (Negative) Ur Amphetamines Screen (Negative) U Methamphetamines Scrn (Negative) Ur MDMA Scrn (Ecstasy) (Negative) U Benzodiazepines Scrn (Negative) Urine Cocaine Screen (Negative) U Marijuana (THC) Screen (Negative) Ethyl Alcohol < 10 mg/dL Chlamy pneumoniae PCR (Not Detect) Adenovirus (PCR) (Not Detect) B.parapertussis DNA PCR (Not Detect) Coronavirus OC43 (PCR) (Not Detect) Coronavirus HKU1 (PCR) (Not Detect) Coronavirus 229E (PCR) (Not Detect) Coronavirus NL63 (PCR) (Not Detect) Human Metapneumovir PCR (Not Detect) Influenza Type A (PCR) (Not Detect) Influenza Type B (PCR) (Not Detect) Influenza A & B (PCR) (Negative) M. pneumoniae (PCR) (Not Detect) Parainfluenza 1 (PCR) (Not Detect) Parainfluenza 2 (PCR) (Not Detect) Parainfluenza 3 (PCR) (Not Detect) Parainfluenza 4 (PCR) (Not Detect) RSV (PCR) (Not Detect) Entero/Rhino (PCR) (Not Detect) 02/26/18 02/26/18 02/26/18 Range/Units 19:10 22:30 Unknown WBC (4.5-11.0) X10^3/uL RBC (4.5-5.9) X10^6/uL Hgb (13.5-17.5) g/dL Hct (41-53) % MCV (80-100) fL MCH (26-34) PG MCHC (30-36) % RDW (11.6-14.8) % Plt Count (150-400) X10^3/uL Neut % (Auto) (50-75) % Lymph % (Auto) (25-40) % [place] % (Auto) (3-14) % Eos % (Auto) (2-4) % Baso % (Auto) (0-2) % Neut # (Auto) (6477-6356) /uL Lymph # (Auto) (3530-3324) /uL [place] # (Auto) (0-900) /uL Eos # (Auto) (0-450) /uL Baso # (Auto) (0-100) /uL PT (10.1-12.7) SECONDS INR (0.9-1.3) APTT (26.4-36.2) SECONDS D-Dimer (<230) ng/mL Sodium (137-145) mmol/L Potassium (3.4-5.1) mmol/L Chloride (98-107) mmol/L Carbon Dioxide (22-32) mmol/L BUN (9-20) mg/dL Creatinine (0.66-1.25) mg/dL Estimated GFR (>60) mL/min BUN/Creatinine Ratio (6-22) Glucose (70-100) mg/dL Lactate (0.7-2.1) mmol/L Calcium (8.4-10.2) mg/dL Magnesium (1.6-2.3) mg/dL Total Bilirubin (0.2-1.3) mg/dL AST (17-59) IU/L ALT (21-72) IU/L Alkaline Phosphatase (38-126) U/L Total Creatine Kinase (55-170) U/L CK-MB (CK-2) CK-MB (CK-2) Rel Index Troponin I (0.01-0.034) ng/mL B-Natriuretic Peptide (<100) Total Protein (6.3-8.2) g/dL Albumin (3.5-5.0) g/dL Globulin (1.7-4.1) g/dL Albumin/Globulin Ratio (1.0-2.8) Lipase (23-300) U/L Procalcitonin (<0.5) ng/mL TSH 4.88 H (0.47-4.68) uIU/mL Urine Color Urine Appearance Urine pH (4.5-8.0) Ur Specific [place] (1.000-1.035) Urine Protein (Negative) Urine Glucose (UA) (Negative) g/dL Urine Ketones (NEGATIVE) Urine Occult Blood (Negative) Urine Nitrate (Negative) Urine Bilirubin (NEGATIVE) Urine Urobilinogen (0.2) E.U./dL Ur Leukocyte Esterase (NEGATIVE) Urine Opiates Screen (Negative) Ur Oxycodone Screen (Negative) Urine Methadone Screen (Negative) Ur Barbiturates Screen (Negative) U Tricyclic Antidepress (Negative) Ur Phencyclidine Scrn (Negative) Ur Amphetamines Screen (Negative) U Methamphetamines Scrn (Negative) Ur MDMA Scrn (Ecstasy) (Negative) U Benzodiazepines Scrn (Negative) Urine Cocaine Screen (Negative) U Marijuana (THC) Screen (Negative) Ethyl Alcohol mg/dL Chlamy pneumoniae PCR Not detected (Not Detect) Adenovirus (PCR) Not detected (Not Detect) B.parapertussis DNA PCR Not detected (Not Detect) Coronavirus OC43 (PCR) Not detected (Not Detect) Coronavirus HKU1 (PCR) Not detected (Not Detect) Coronavirus 229E (PCR) Not detected (Not Detect) Coronavirus NL63 (PCR) Not detected (Not Detect) Human Metapneumovir PCR Not detected (Not Detect) Influenza Type A (PCR) Detected H (Not Detect) Influenza Type B (PCR) Not detected (Not Detect) Influenza A & B (PCR) Negative (Negative) M. pneumoniae (PCR) Not detected (Not Detect) Parainfluenza 1 (PCR) Not detected (Not Detect) Parainfluenza 2 (PCR) Not detected (Not Detect) Parainfluenza 3 (PCR) Not detected (Not Detect) Parainfluenza 4 (PCR) Not detected (Not Detect) RSV (PCR) Not detected (Not Detect) Entero/Rhino (PCR) Not detected (Not Detect) 02/27/18 02/27/18 02/27/18 Range/Units 00:12 00:20 00:20 WBC (4.5-11.0) X10^3/uL RBC (4.5-5.9) X10^6/uL Hgb (13.5-17.5) g/dL Hct (41-53) % MCV (80-100) fL MCH (26-34) PG MCHC (30-36) % RDW (11.6-14.8) % Plt Count (150-400) X10^3/uL Neut % (Auto) (50-75) % Lymph % (Auto) (25-40) % [place] % (Auto) (3-14) % Eos % (Auto) (2-4) % Baso % (Auto) (0-2) % Neut # (Auto) (0452-9614) /uL Lymph # (Auto) (6788-3060) /uL [place] # (Auto) (0-900) /uL Eos # (Auto) (0-450) /uL Baso # (Auto) (0-100) /uL PT (10.1-12.7) SECONDS INR (0.9-1.3) APTT (26.4-36.2) SECONDS D-Dimer (<230) ng/mL Sodium (137-145) mmol/L Potassium (3.4-5.1) mmol/L Chloride (98-107) mmol/L Carbon Dioxide (22-32) mmol/L BUN (9-20) mg/dL Creatinine (0.66-1.25) mg/dL Estimated GFR (>60) mL/min BUN/Creatinine Ratio (6-22) Glucose (70-100) mg/dL Lactate (0.7-2.1) mmol/L Calcium (8.4-10.2) mg/dL Magnesium (1.6-2.3) mg/dL Total Bilirubin (0.2-1.3) mg/dL AST (17-59) IU/L ALT (21-72) IU/L Alkaline Phosphatase (38-126) U/L Total Creatine Kinase (55-170) U/L CK-MB (CK-2) CK-MB (CK-2) Rel Index Troponin I < 0.012 (0.01-0.034) ng/mL B-Natriuretic Peptide (<100) Total Protein (6.3-8.2) g/dL Albumin (3.5-5.0) g/dL Globulin (1.7-4.1) g/dL Albumin/Globulin Ratio (1.0-2.8) Lipase (23-300) U/L Procalcitonin (<0.5) ng/mL TSH (0.47-4.68) uIU/mL Urine Color Yellow Urine Appearance Clear Urine pH 7.5 (4.5-8.0) Ur Specific [place] 1.015 (1.000-1.035) Urine Protein Negative (Negative) Urine Glucose (UA) Negative (Negative) g/dL Urine Ketones Negative (NEGATIVE) Urine Occult Blood Negative (Negative) Urine Nitrate Negative (Negative) Urine Bilirubin Negative (NEGATIVE) Urine Urobilinogen 0.2 (0.2) E.U./dL Ur Leukocyte Esterase Negative (NEGATIVE) Urine Opiates Screen Negative (Negative) Ur Oxycodone Screen Negative (Negative) Urine Methadone Screen Negative (Negative) Ur Barbiturates Screen Negative (Negative) U Tricyclic Antidepress Negative (Negative) Ur Phencyclidine Scrn Negative (Negative) Ur Amphetamines Screen Negative (Negative) U Methamphetamines Scrn Negative (Negative) Ur MDMA Scrn (Ecstasy) Negative (Negative) U Benzodiazepines Scrn Negative (Negative) Urine Cocaine Screen Negative (Negative) U Marijuana (THC) Screen Negative (Negative) Ethyl Alcohol mg/dL Chlamy pneumoniae PCR (Not Detect) Adenovirus (PCR) (Not Detect) B.parapertussis DNA PCR (Not Detect) Coronavirus OC43 (PCR) (Not Detect) Coronavirus HKU1 (PCR) (Not Detect) Coronavirus 229E (PCR) (Not Detect) Coronavirus NL63 (PCR) (Not Detect) Human Metapneumovir PCR (Not Detect) Influenza Type A (PCR) (Not Detect) Influenza Type B (PCR) (Not Detect) Influenza A & B (PCR) (Negative) M. pneumoniae (PCR) (Not Detect) Parainfluenza 1 (PCR) (Not Detect) Parainfluenza 2 (PCR) (Not Detect) Parainfluenza 3 (PCR) (Not Detect) Parainfluenza 4 (PCR) (Not Detect) RSV (PCR) (Not Detect) Entero/Rhino (PCR) (Not Detect) Urine Dip Bedside Urine Glucose Negative Bedside Urine Bilirubin - Negative Bedside Urine Ketone - Negative Urine Specific [place] 1.010 Bedside Urine Occult Blood - Negative Bedside Urine pH 7.5 Bedside Urine Protein - Negative Bedside Urine Urobilinogen - Negative Bedside Urine Nitrite - Negative Bedside Urine Leukocytes - Negative Esterase ECG Data Attestation: I personally reviewed and interpreted this ECG as follows: Prior ECG tracings: not available for review Interpretation: Normal sinus rhythm rate [address] changes MDM Narrative Medical decision making narrative: I discussed case with Hilton nolasco. Patient is persistently tachycardic despite IV fluids and fever control. His low risk for any PE. However patient remains tachycardic with unexplained reason. Agree with observation. Discharge Plan Departure Patient Disposition: Admitted As Inpatient Clinical Impression: Tachycardia, Upper respiratory infection Discharge Date/Time: 02/26/18 22:31 Interventions: ED Discharge Assessment Last Done: 02/26/18 22:29 Admit Date/Time: 02/26/18 21:32 Admit Provider: Frannie Gould <Rubi Trotter, - Last Filed: 02/27/18 04:27> Cosign ED Attending Cosbub[place] Attestation: I was immediately available in the department for consultation. Documentation has been reviewed. I agree with assessment and plan.
[2018-02-26] MEDS: SODIUM CHLORIDE 0.9% 1,000 ML 1000 ML IV ×2 (17:14→18:03)
[2018-02-26 17:59] LABS: Lactate (Lactic Acid) 1.9 mmol/L (0.7-2.1)
[2018-02-26] MEDS: KETOROLAC 60 MG/2 ML VIAL 30 MG IV (18:10)
[2018-02-26 18:17] LABS: Procalcitonin < 0.05 ng/mL (<0.5)
--- NOTE | 2018-02-26 19:36 | ED_ITS ---
HPI - URI/Sore Throat <ASTRID Adkins - Last Filed: 02/26/18 22:31> General Chief Complaint: Upper Respiratory Symptoms Stated Complaint: cold or flu symptoms Time Seen by Provider: 02/26/18 16:11 Source: patient Mode of arrival: ambulatory Limitations: no limitations History of Present Illness HPI Narrative: 57-year-old male with history of hypo thyroidism as a former smoker here for complaint of cold-like symptoms over the past several days. He has had nasal congestion cough and generalized malaise with chills over this timeframe. He has tolerated p.o. intake. He does report that he has recently moved across country to this area for a new job that he has started yet and has been sleeping in his vehicle until his new job starts. He denies any chest pain. No shortness of breath. He denies any stressors or relievers of his symptoms. He denies any other concerns or complaints at this timeframe. Related Data Home Medications Medication Instructions Recorded Confirmed Antianxiety Med 1 dose PO PRN PRN 02/26/18 02/26/18 esomeprazole magnesium [Nexium] 20 mg PO PRN PRN 02/26/18 02/26/18 levothyroxine 1 dose PO DAILY 02/26/18 02/26/18 Allergies Allergy/AdvReac Type Severity Reaction Status Date / Time Penicillins Allergy Verified 02/26/18 17:00 Review of Systems <ASTRID Adkins - Last Filed: 02/26/18 22:31> Constitutional Reports chills and Reports malaise Eyes Denies change in vision, Denies eye discharge, Denies irritation and Denies loss of vision ENT Ears, Nose, Mouth, and Throat: Denies change in voice, Reports nasal discharge, Denies neck pain and Denies sore throat Cardiovascular Denies chest pain, Denies irregular heart rhythm, Denies lightheadedness, Denies palpitations, Denies dyspnea, Denies dyspnea on exertion and Denies orthopnea Respiratory Denies cough, Denies dyspnea, Denies dyspnea on exertion and Denies wheezing Gastrointestinal Gastrointestinal: Denies abdominal pain, Denies change in bowel habits, Denies diarrhea, Denies nausea and Denies vomiting Genitourinary Denies hematuria, Denies flank pain, Denies urinary incontinence and Denies urinary urgency Musculoskeletal Denies neck pain Integumentary/Breasts Denies pruritus, Denies erythema, Denies rash and Denies wounds Neurologic Denies confusion and Denies loss of vision Psychiatric Denies anxiety, Denies confusion, Denies depression, Denies homicidal ideation and Denies suicidal ideation Endocrine Denies palpitations Hematologic/Lymphatic Denies easy bruising Allergic/Immunologic Denies wheezing Exam <ASTRID Adkins - Last Filed: 02/26/18 22:31> Initial Vital Signs Initial Vital Signs: Vital Signs Temperature 98.7 F 02/26/18 15:47 Pulse Rate 137 H 02/26/18 15:47 Respiratory Rate 17 02/26/18 15:47 Blood Pressure 138/91 H 02/26/18 15:47 Pulse Oximetry 97 02/26/18 15:47 Const General: cooperative and well developed Nutritional Appearance: well nourished Orientation: alert, awake, oriented x3 and not confused HENCT Mouth: oral mucosae normal, oropharynx normal and moist mucous membranes Eyes Conjunctivae: conjunctivae normal Sclera: sclerae normal Pupils: PERRL EOM: EOM intact bilaterally Resp Effort & Inspection: normal respiratory effort, able to speak in complete sentences, no respiratory distress and no use of accessory muscles Auscultation: clear to auscultation bilaterally, no rales, no rhonchi and no wheezes Cardio Rate: regular rate Rhythm: regular rhythm Heart Sounds: no click, no gallops, no murmurs and no rubs Pulses: normal peripheral pulses GI Inspection: non-distended Palpation: soft, no hepatosplenomegaly, No guarding, No pulsatile mass and No tender Auscultation: normal bowel sounds Skin General: no rashes or lesions noted, No jaundice and No petechiae Neuro General: alert, oriented x3, gait normal and no focal motor deficits Speech: speech normal <Rubi Trotter DO - Last Filed: 02/27/18 04:27> Initial Vital Signs Initial Vital Signs: Vital Signs Temperature 98.7 F 02/26/18 15:47 Pulse Rate 137 H 02/26/18 15:47 Respiratory Rate 17 02/26/18 15:47 Blood Pressure 138/91 H 02/26/18 15:47 Pulse Oximetry 97 02/26/18 15:47 Course <ASTRID Adkins - Last Filed: 02/26/18 22:31> Orders Ordered: ED Orders 02/26/18 21:27 Blood Culture Stat 02/26/18 22:30 Respiratory Panel Stat 02/26/18 22:49 Consult to Dietitian, Adult Routine 02/26/18 22:56 Education, smoking cessation ONGOING 02/26/18 23:45 UA Complete [Urinalysis and Microscopic] Stat 02/27/18 BNP [B Type Natriuretic Peptide] Stat 02/27/18 00:12 Troponin I Q6H 02/27/18 00:20 Urine Drug Screen, Rapid Stat 02/27/18 01:06 PEP - Flutter Valve TID 02/27/18 01:31 EC echo doppler complete Routine 02/27/18 06:00 Chest [XR chest 2V] Routine Troponin I Q6H Acetaminophen (Tylenol) 650 mg PO Q6HR PRN PRN Reason: As Needed for Fever/Mild Pain Albuterol (Proventil) 1.25 mg INH RTQ6HR LUCY Last Admin: 02/27/18 04:07 Dose: Not Given Benzonatate (Tessalon Perles) 100 mg PO TID PRN PRN Reason: Cough Last Admin: 02/27/18 01:38 Dose: 100 mg Guaifenesin (Mucinex) 600 mg PO BID [facility] Heparin Sodium (Porcine) (Heparin) 5,000 unit SUBCUT BID [facility] Last Admin: 02/27/18 01:02 Dose: 5,000 unit Sodium Chloride (Normal Saline 0.9%) 1,000 mls @ 75 mls/hr IV CONT [facility] Last Admin: 02/26/18 23:53 Dose: 75 mls/hr Oseltamivir Phosphate (Tamiflu) 75 mg PO BID LUCY Pantoprazole Sodium (Protonix) 40 mg PO 0700,2100 [facility] Discontinued Medications Guaifenesin (Mucinex) 600 mg PO NOW ONE Stop: 02/27/18 01:31 Last Admin: 02/27/18 02:14 Dose: 600 mg Sodium Chloride (Normal Saline 0.9%) 1,000 mls @ 1,000 mls/hr IV BOLUS ONE Stop: 02/26/18 18:03 Last Infusion: 02/26/18 18:03 Dose: 0 mls/hr Admin: 02/26/18 17:14 Dose: 1,000 mls/hr Sodium Chloride (Normal Saline 0.9%) 1,000 mls @ 1,000 mls/hr IV BOLUS ONE Stop: 02/26/18 18:44 Last Infusion: 02/26/18 19:24 Dose: 0 mls/hr Admin: 02/26/18 18:03 Dose: 1,000 mls/hr Ketorolac Tromethamine (Toradol) 30 mg IV NOW ONE Stop: 02/26/18 18:10 Last Admin: 02/26/18 18:10 Dose: 30 mg Oseltamivir Phosphate (Tamiflu) 75 mg PO BID LUCY Oseltamivir Phosphate (Tamiflu) 75 mg PO NOW ONE Stop: 02/27/18 01:31 Last Admin: 02/27/18 01:37 Dose: 75 mg Vital Signs - 8 hr 02/26/18 20:46 02/26/18 22:36 02/26/18 22:56 Temperature 98.4 F Pulse Rate 120 H 119 H Respiratory Rate 24 19 Blood Pressure 143/99 H Blood Pressure [Left Arm] 133/87 Pulse Oximetry 96 98 98 02/26/18 23:45 02/27/18 01:26 Temperature 98.9 F Pulse Rate 95 H Respiratory Rate 20 Blood Pressure 154/97 H Blood Pressure [Left Arm] Pulse Oximetry 98 98 <Rubi Trotter, DO - Last Filed: 02/27/18 04:27> Orders Ordered: ED Orders 02/26/18 21:27 Blood Culture Stat 02/26/18 22:30 Respiratory Panel Stat 02/26/18 22:49 Consult to Dietitian, Adult Routine 02/26/18 22:56 Education, smoking cessation ONGOING 02/26/18 23:45 UA Complete [Urinalysis and Microscopic] Stat 02/27/18 BNP [B Type Natriuretic Peptide] Stat 02/27/18 00:12 Troponin I Q6H 02/27/18 00:20 Urine Drug Screen, Rapid Stat 02/27/18 01:06 PEP - Flutter Valve TID 02/27/18 01:31 EC echo doppler complete Routine 02/27/18 06:00 Chest [XR chest 2V] Routine Troponin I Q6H Acetaminophen (Tylenol) 650 mg PO Q6HR PRN PRN Reason: As Needed for Fever/Mild Pain Albuterol (Proventil) 1.25 mg INH RTQ6HR LUCY Last Admin: 02/27/18 04:07 Dose: Not Given Benzonatate (Tessalon Perles) 100 mg PO TID PRN PRN Reason: Cough Last Admin: 02/27/18 01:38 Dose: 100 mg Guaifenesin (Mucinex) 600 mg PO BID [facility] Heparin Sodium (Porcine) (Heparin) 5,000 unit SUBCUT BID [facility] Last Admin: 02/27/18 01:02 Dose: 5,000 unit Sodium Chloride (Normal Saline 0.9%) 1,000 mls @ 75 mls/hr IV CONT [facility] Last Admin: 02/26/18 23:53 Dose: 75 mls/hr Oseltamivir Phosphate (Tamiflu) 75 mg PO BID [facility] Pantoprazole Sodium (Protonix) 40 mg PO 0700,2100 [facility] Discontinued Medications Guaifenesin (Mucinex) 600 mg PO NOW ONE Stop: 02/27/18 01:31 Last Admin: 02/27/18 02:14 Dose: 600 mg Sodium Chloride (Normal Saline 0.9%) 1,000 mls @ 1,000 mls/hr IV BOLUS ONE Stop: 02/26/18 18:03 Last Infusion: 02/26/18 18:03 Dose: 0 mls/hr Admin: 02/26/18 17:14 Dose: 1,000 mls/hr Sodium Chloride (Normal Saline 0.9%) 1,000 mls @ 1,000 mls/hr IV BOLUS ONE Stop: 02/26/18 18:44 Last Infusion: 02/26/18 19:24 Dose: 0 mls/hr Admin: 02/26/18 18:03 Dose: 1,000 mls/hr Ketorolac Tromethamine (Toradol) 30 mg IV NOW ONE Stop: 02/26/18 18:10 Last Admin: 02/26/18 18:10 Dose: 30 mg Oseltamivir Phosphate (Tamiflu) 75 mg PO BID [facility] Oseltamivir Phosphate (Tamiflu) 75 mg PO NOW ONE Stop: 02/27/18 01:31 Last Admin: 02/27/18 01:37 Dose: 75 mg Vital Signs - 8 hr 02/26/18 20:46 02/26/18 22:36 02/26/18 22:56 Temperature 98.4 F Pulse Rate 120 H 119 H Respiratory Rate 24 19 Blood Pressure 143/99 H Blood Pressure [Left Arm] 133/87 Pulse Oximetry 96 98 98 02/26/18 23:45 02/27/18 01:26 Temperature 98.9 F Pulse Rate 95 H Respiratory Rate 20 Blood Pressure 154/97 H Blood Pressure [Left Arm] Pulse Oximetry 98 98 MDM - URI/Sore Throat <ASTRID Adkins - Last Filed: 02/26/18 22:31> Lab Data Result diagrams: 02/26/18 16:15 02/26/18 16:15 Lab Results 02/26/18 02/26/18 02/26/18 Range/Units 15:35 15:53 16:15 WBC 8.5 (4.5-11.0) X10^3/uL RBC 5.74 (4.5-5.9) X10^6/uL Hgb 15.2 (13.5-17.5) g/dL Hct 45.7 (41-53) % MCV 79.5 L (80-100) fL MCH 26.5 (26-34) PG MCHC 33.3 (30-36) % RDW 16.1 H (11.6-14.8) % Plt Count 245 (150-400) X10^3/uL Neut % (Auto) 77.5 H (50-75) % Lymph % (Auto) 8.7 L (25-40) % [place] % (Auto) 10.5 (3-14) % Eos % (Auto) 2.5 (2-4) % Baso % (Auto) 0.8 (0-2) % Neut # (Auto) 6600 (6296-6939) /uL Lymph # (Auto) 700 L (9304-3312) /uL [place] # (Auto) 900 (0-900) /uL Eos # (Auto) 200 (0-450) /uL Baso # (Auto) 100 (0-100) /uL PT (10.1-12.7) SECONDS INR (0.9-1.3) APTT (26.4-36.2) SECONDS D-Dimer (<230) ng/mL Sodium (137-145) mmol/L Potassium (3.4-5.1) mmol/L Chloride (98-107) mmol/L Carbon Dioxide (22-32) mmol/L BUN (9-20) mg/dL Creatinine (0.66-1.25) mg/dL Estimated GFR (>60) mL/min BUN/Creatinine Ratio (6-22) Glucose (70-100) mg/dL Lactate (0.7-2.1) mmol/L Calcium (8.4-10.2) mg/dL Magnesium 2.1 (1.6-2.3) mg/dL Total Bilirubin (0.2-1.3) mg/dL AST (17-59) IU/L ALT (21-72) IU/L Alkaline Phosphatase (38-126) U/L Total Creatine Kinase (55-170) U/L CK-MB (CK-2) CK-MB (CK-2) Rel Index Troponin I (0.01-0.034) ng/mL B-Natriuretic Peptide < 100 (<100) Total Protein (6.3-8.2) g/dL Albumin (3.5-5.0) g/dL Globulin (1.7-4.1) g/dL Albumin/Globulin Ratio (1.0-2.8) Lipase (23-300) U/L Procalcitonin (<0.5) ng/mL TSH (0.47-4.68) uIU/mL Urine Color Urine Appearance Urine pH (4.5-8.0) Ur Specific [place] (1.000-1.035) Urine Protein (Negative) Urine Glucose (UA) (Negative) g/dL Urine Ketones (NEGATIVE) Urine Occult Blood (Negative) Urine Nitrate (Negative) Urine Bilirubin (NEGATIVE) Urine Urobilinogen (0.2) E.U./dL Ur Leukocyte Esterase (NEGATIVE) Urine Opiates Screen (Negative) Ur Oxycodone Screen (Negative) Urine Methadone Screen (Negative) Ur Barbiturates Screen (Negative) U Tricyclic Antidepress (Negative) Ur Phencyclidine Scrn (Negative) Ur Amphetamines Screen (Negative) U Methamphetamines Scrn (Negative) Ur MDMA Scrn (Ecstasy) (Negative) U Benzodiazepines Scrn (Negative) Urine Cocaine Screen (Negative) U Marijuana (THC) Screen (Negative) Ethyl Alcohol mg/dL Chlamy pneumoniae PCR (Not Detect) Adenovirus (PCR) (Not Detect) B.parapertussis DNA PCR (Not Detect) Coronavirus OC43 (PCR) (Not Detect) Coronavirus HKU1 (PCR) (Not Detect) Coronavirus 229E (PCR) (Not Detect) Coronavirus NL63 (PCR) (Not Detect) Human Metapneumovir PCR (Not Detect) Influenza Type A (PCR) (Not Detect) Influenza Type B (PCR) (Not Detect) Influenza A & B (PCR) (Negative) M. pneumoniae (PCR) (Not Detect) Parainfluenza 1 (PCR) (Not Detect) Parainfluenza 2 (PCR) (Not Detect) Parainfluenza 3 (PCR) (Not Detect) Parainfluenza 4 (PCR) (Not Detect) RSV (PCR) (Not Detect) Entero/Rhino (PCR) (Not Detect) 02/26/18 02/26/18 02/26/18 Range/Units 16:15 16:15 16:15 WBC (4.5-11.0) X10^3/uL RBC (4.5-5.9) X10^6/uL Hgb (13.5-17.5) g/dL Hct (41-53) % MCV (80-100) fL MCH (26-34) PG MCHC (30-36) % RDW (11.6-14.8) % Plt Count (150-400) X10^3/uL Neut % (Auto) (50-75) % Lymph % (Auto) (25-40) % [place] % (Auto) (3-14) % Eos % (Auto) (2-4) % Baso % (Auto) (0-2) % Neut # (Auto) (9244-8891) /uL Lymph # (Auto) (6787-9267) /uL [place] # (Auto) (0-900) /uL Eos # (Auto) (0-450) /uL Baso # (Auto) (0-100) /uL PT 12.0 (10.1-12.7) SECONDS INR 1.0 (0.9-1.3) APTT 36 (26.4-36.2) SECONDS D-Dimer 233 H (<230) ng/mL Sodium 141 (137-145) mmol/L Potassium 3.9 (3.4-5.1) mmol/L Chloride 108 H (98-107) mmol/L Carbon Dioxide 22 (22-32) mmol/L BUN 9 (9-20) mg/dL Creatinine 0.70 (0.66-1.25) mg/dL Estimated GFR > 60.0 (>60) mL/min BUN/Creatinine Ratio 12.9 (6-22) Glucose 77 (70-100) mg/dL Lactate (0.7-2.1) mmol/L Calcium 9.4 (8.4-10.2) mg/dL Magnesium (1.6-2.3) mg/dL Total Bilirubin 0.6 (0.2-1.3) mg/dL AST 28 (17-59) IU/L ALT 30 (21-72) IU/L Alkaline Phosphatase 65 (38-126) U/L Total Creatine Kinase 44 L (55-170) U/L CK-MB (CK-2) TNP CK-MB (CK-2) Rel Index TNP Troponin I < 0.012 (0.01-0.034) ng/mL B-Natriuretic Peptide (<100) Total Protein 7.6 (6.3-8.2) g/dL Albumin 4.3 (3.5-5.0) g/dL Globulin 3.3 (1.7-4.1) g/dL Albumin/Globulin Ratio 1.3 (1.0-2.8) Lipase 101 (23-300) U/L Procalcitonin (<0.5) ng/mL TSH (0.47-4.68) uIU/mL Urine Color Urine Appearance Urine pH (4.5-8.0) Ur Specific [place] (1.000-1.035) Urine Protein (Negative) Urine Glucose (UA) (Negative) g/dL Urine Ketones (NEGATIVE) Urine Occult Blood (Negative) Urine Nitrate (Negative) Urine Bilirubin (NEGATIVE) Urine Urobilinogen (0.2) E.U./dL Ur Leukocyte Esterase (NEGATIVE) Urine Opiates Screen (Negative) Ur Oxycodone Screen (Negative) Urine Methadone Screen (Negative) Ur Barbiturates Screen (Negative) U Tricyclic Antidepress (Negative) Ur Phencyclidine Scrn (Negative) Ur Amphetamines Screen (Negative) U Methamphetamines Scrn (Negative) Ur MDMA Scrn (Ecstasy) (Negative) U Benzodiazepines Scrn (Negative) Urine Cocaine Screen (Negative) U Marijuana (THC) Screen (Negative) Ethyl Alcohol mg/dL Chlamy pneumoniae PCR (Not Detect) Adenovirus (PCR) (Not Detect) B.parapertussis DNA PCR (Not Detect) Coronavirus OC43 (PCR) (Not Detect) Coronavirus HKU1 (PCR) (Not Detect) Coronavirus 229E (PCR) (Not Detect) Coronavirus NL63 (PCR) (Not Detect) Human Metapneumovir PCR (Not Detect) Influenza Type A (PCR) (Not Detect) Influenza Type B (PCR) (Not Detect) Influenza A & B (PCR) (Negative) M. pneumoniae (PCR) (Not Detect) Parainfluenza 1 (PCR) (Not Detect) Parainfluenza 2 (PCR) (Not Detect) Parainfluenza 3 (PCR) (Not Detect) Parainfluenza 4 (PCR) (Not Detect) RSV (PCR) (Not Detect) Entero/Rhino (PCR) (Not Detect) 02/26/18 02/26/18 02/26/18 Range/Units 16:15 17:41 17:41 WBC (4.5-11.0) X10^3/uL RBC (4.5-5.9) X10^6/uL Hgb (13.5-17.5) g/dL Hct (41-53) % MCV (80-100) fL MCH (26-34) PG MCHC (30-36) % RDW (11.6-14.8) % Plt Count (150-400) X10^3/uL Neut % (Auto) (50-75) % Lymph % (Auto) (25-40) % [place] % (Auto) (3-14) % Eos % (Auto) (2-4) % Baso % (Auto) (0-2) % Neut # (Auto) (1662-9096) /uL Lymph # (Auto) (6116-5870) /uL [place] # (Auto) (0-900) /uL Eos # (Auto) (0-450) /uL Baso # (Auto) (0-100) /uL PT (10.1-12.7) SECONDS INR (0.9-1.3) APTT (26.4-36.2) SECONDS D-Dimer (<230) ng/mL Sodium (137-145) mmol/L Potassium (3.4-5.1) mmol/L Chloride (98-107) mmol/L Carbon Dioxide (22-32) mmol/L BUN (9-20) mg/dL Creatinine (0.66-1.25) mg/dL Estimated GFR (>60) mL/min BUN/Creatinine Ratio (6-22) Glucose (70-100) mg/dL Lactate 1.9 (0.7-2.1) mmol/L Calcium (8.4-10.2) mg/dL Magnesium (1.6-2.3) mg/dL Total Bilirubin (0.2-1.3) mg/dL AST (17-59) IU/L ALT (21-72) IU/L Alkaline Phosphatase (38-126) U/L Total Creatine Kinase (55-170) U/L CK-MB (CK-2) CK-MB (CK-2) Rel Index Troponin I (0.01-0.034) ng/mL B-Natriuretic Peptide (<100) Total Protein (6.3-8.2) g/dL Albumin (3.5-5.0) g/dL Globulin (1.7-4.1) g/dL Albumin/Globulin Ratio (1.0-2.8) Lipase (23-300) U/L Procalcitonin < 0.05 (<0.5) ng/mL TSH (0.47-4.68) uIU/mL Urine Color Urine Appearance Urine pH (4.5-8.0) Ur Specific [place] (1.000-1.035) Urine Protein (Negative) Urine Glucose (UA) (Negative) g/dL Urine Ketones (NEGATIVE) Urine Occult Blood (Negative) Urine Nitrate (Negative) Urine Bilirubin (NEGATIVE) Urine Urobilinogen (0.2) E.U./dL Ur Leukocyte Esterase (NEGATIVE) Urine Opiates Screen (Negative) Ur Oxycodone Screen (Negative) Urine Methadone Screen (Negative) Ur Barbiturates Screen (Negative) U Tricyclic Antidepress (Negative) Ur Phencyclidine Scrn (Negative) Ur Amphetamines Screen (Negative) U Methamphetamines Scrn (Negative) Ur MDMA Scrn (Ecstasy) (Negative) U Benzodiazepines Scrn (Negative) Urine Cocaine Screen (Negative) U Marijuana (THC) Screen (Negative) Ethyl Alcohol < 10 mg/dL Chlamy pneumoniae PCR (Not Detect) Adenovirus (PCR) (Not Detect) B.parapertussis DNA PCR (Not Detect) Coronavirus OC43 (PCR) (Not Detect) Coronavirus HKU1 (PCR) (Not Detect) Coronavirus 229E (PCR) (Not Detect) Coronavirus NL63 (PCR) (Not Detect) Human Metapneumovir PCR (Not Detect) Influenza Type A (PCR) (Not Detect) Influenza Type B (PCR) (Not Detect) Influenza A & B (PCR) (Negative) M. pneumoniae (PCR) (Not Detect) Parainfluenza 1 (PCR) (Not Detect) Parainfluenza 2 (PCR) (Not Detect) Parainfluenza 3 (PCR) (Not Detect) Parainfluenza 4 (PCR) (Not Detect) RSV (PCR) (Not Detect) Entero/Rhino (PCR) (Not Detect) 02/26/18 02/26/18 02/26/18 Range/Units 19:10 22:30 Unknown WBC (4.5-11.0) X10^3/uL RBC (4.5-5.9) X10^6/uL Hgb (13.5-17.5) g/dL Hct (41-53) % MCV (80-100) fL MCH (26-34) PG MCHC (30-36) % RDW (11.6-14.8) % Plt Count (150-400) X10^3/uL Neut % (Auto) (50-75) % Lymph % (Auto) (25-40) % [place] % (Auto) (3-14) % Eos % (Auto) (2-4) % Baso % (Auto) (0-2) % Neut # (Auto) (1065-9624) /uL Lymph # (Auto) (5202-0914) /uL [place] # (Auto) (0-900) /uL Eos # (Auto) (0-450) /uL Baso # (Auto) (0-100) /uL PT (10.1-12.7) SECONDS INR (0.9-1.3) APTT (26.4-36.2) SECONDS D-Dimer (<230) ng/mL Sodium (137-145) mmol/L Potassium (3.4-5.1) mmol/L Chloride (98-107) mmol/L Carbon Dioxide (22-32) mmol/L BUN (9-20) mg/dL Creatinine (0.66-1.25) mg/dL Estimated GFR (>60) mL/min BUN/Creatinine Ratio (6-22) Glucose (70-100) mg/dL Lactate (0.7-2.1) mmol/L Calcium (8.4-10.2) mg/dL Magnesium (1.6-2.3) mg/dL Total Bilirubin (0.2-1.3) mg/dL AST (17-59) IU/L ALT (21-72) IU/L Alkaline Phosphatase (38-126) U/L Total Creatine Kinase (55-170) U/L CK-MB (CK-2) CK-MB (CK-2) Rel Index Troponin I (0.01-0.034) ng/mL B-Natriuretic Peptide (<100) Total Protein (6.3-8.2) g/dL Albumin (3.5-5.0) g/dL Globulin (1.7-4.1) g/dL Albumin/Globulin Ratio (1.0-2.8) Lipase (23-300) U/L Procalcitonin (<0.5) ng/mL TSH 4.88 H (0.47-4.68) uIU/mL Urine Color Urine Appearance Urine pH (4.5-8.0) Ur Specific [place] (1.000-1.035) Urine Protein (Negative) Urine Glucose (UA) (Negative) g/dL Urine Ketones (NEGATIVE) Urine Occult Blood (Negative) Urine Nitrate (Negative) Urine Bilirubin (NEGATIVE) Urine Urobilinogen (0.2) E.U./dL Ur Leukocyte Esterase (NEGATIVE) Urine Opiates Screen (Negative) Ur Oxycodone Screen (Negative) Urine Methadone Screen (Negative) Ur Barbiturates Screen (Negative) U Tricyclic Antidepress (Negative) Ur Phencyclidine Scrn (Negative) Ur Amphetamines Screen (Negative) U Methamphetamines Scrn (Negative) Ur MDMA Scrn (Ecstasy) (Negative) U Benzodiazepines Scrn (Negative) Urine Cocaine Screen (Negative) U Marijuana (THC) Screen (Negative) Ethyl Alcohol mg/dL Chlamy pneumoniae PCR Not detected (Not Detect) Adenovirus (PCR) Not detected (Not Detect) B.parapertussis DNA PCR Not detected (Not Detect) Coronavirus OC43 (PCR) Not detected (Not Detect) Coronavirus HKU1 (PCR) Not detected (Not Detect) Coronavirus 229E (PCR) Not detected (Not Detect) Coronavirus NL63 (PCR) Not detected (Not Detect) Human Metapneumovir PCR Not detected (Not Detect) Influenza Type A (PCR) Detected H (Not Detect) Influenza Type B (PCR) Not detected (Not Detect) Influenza A & B (PCR) Negative (Negative) M. pneumoniae (PCR) Not detected (Not Detect) Parainfluenza 1 (PCR) Not detected (Not Detect) Parainfluenza 2 (PCR) Not detected (Not Detect) Parainfluenza 3 (PCR) Not detected (Not Detect) Parainfluenza 4 (PCR) Not detected (Not Detect) RSV (PCR) Not detected (Not Detect) Entero/Rhino (PCR) Not detected (Not Detect) 02/27/18 02/27/18 02/27/18 Range/Units 00:12 00:20 00:20 WBC (4.5-11.0) X10^3/uL RBC (4.5-5.9) X10^6/uL Hgb (13.5-17.5) g/dL Hct (41-53) % MCV (80-100) fL MCH (26-34) PG MCHC (30-36) % RDW (11.6-14.8) % Plt Count (150-400) X10^3/uL Neut % (Auto) (50-75) % Lymph % (Auto) (25-40) % [place] % (Auto) (3-14) % Eos % (Auto) (2-4) % Baso % (Auto) (0-2) % Neut # (Auto) (9467-2858) /uL Lymph # (Auto) (1505-3964) /uL [place] # (Auto) (0-900) /uL Eos # (Auto) (0-450) /uL Baso # (Auto) (0-100) /uL PT (10.1-12.7) SECONDS INR (0.9-1.3) APTT (26.4-36.2) SECONDS D-Dimer (<230) ng/mL Sodium (137-145) mmol/L Potassium (3.4-5.1) mmol/L Chloride (98-107) mmol/L Carbon Dioxide (22-32) mmol/L BUN (9-20) mg/dL Creatinine (0.66-1.25) mg/dL Estimated GFR (>60) mL/min BUN/Creatinine Ratio (6-22) Glucose (70-100) mg/dL Lactate (0.7-2.1) mmol/L Calcium (8.4-10.2) mg/dL Magnesium (1.6-2.3) mg/dL Total Bilirubin (0.2-1.3) mg/dL AST (17-59) IU/L ALT (21-72) IU/L Alkaline Phosphatase (38-126) U/L Total Creatine Kinase (55-170) U/L CK-MB (CK-2) CK-MB (CK-2) Rel Index Troponin I < 0.012 (0.01-0.034) ng/mL B-Natriuretic Peptide (<100) Total Protein (6.3-8.2) g/dL Albumin (3.5-5.0) g/dL Globulin (1.7-4.1) g/dL Albumin/Globulin Ratio (1.0-2.8) Lipase (23-300) U/L Procalcitonin (<0.5) ng/mL TSH (0.47-4.68) uIU/mL Urine Color Yellow Urine Appearance Clear Urine pH 7.5 (4.5-8.0) Ur Specific [place] 1.015 (1.000-1.035) Urine Protein Negative (Negative) Urine Glucose (UA) Negative (Negative) g/dL Urine Ketones Negative (NEGATIVE) Urine Occult Blood Negative (Negative) Urine Nitrate Negative (Negative) Urine Bilirubin Negative (NEGATIVE) Urine Urobilinogen 0.2 (0.2) E.U./dL Ur Leukocyte Esterase Negative (NEGATIVE) Urine Opiates Screen Negative (Negative) Ur Oxycodone Screen Negative (Negative) Urine Methadone Screen Negative (Negative) Ur Barbiturates Screen Negative (Negative) U Tricyclic Antidepress Negative (Negative) Ur Phencyclidine Scrn Negative (Negative) Ur Amphetamines Screen Negative (Negative) U Methamphetamines Scrn Negative (Negative) Ur MDMA Scrn (Ecstasy) Negative (Negative) U Benzodiazepines Scrn Negative (Negative) Urine Cocaine Screen Negative (Negative) U Marijuana (THC) Screen Negative (Negative) Ethyl Alcohol mg/dL Chlamy pneumoniae PCR (Not Detect) Adenovirus (PCR) (Not Detect) B.parapertussis DNA PCR (Not Detect) Coronavirus OC43 (PCR) (Not Detect) Coronavirus HKU1 (PCR) (Not Detect) Coronavirus 229E (PCR) (Not Detect) Coronavirus NL63 (PCR) (Not Detect) Human Metapneumovir PCR (Not Detect) Influenza Type A (PCR) (Not Detect) Influenza Type B (PCR) (Not Detect) Influenza A & B (PCR) (Negative) M. pneumoniae (PCR) (Not Detect) Parainfluenza 1 (PCR) (Not Detect) Parainfluenza 2 (PCR) (Not Detect) Parainfluenza 3 (PCR) (Not Detect) Parainfluenza 4 (PCR) (Not Detect) RSV (PCR) (Not Detect) Entero/Rhino (PCR) (Not Detect) Urine Dip Bedside Urine Glucose Negative Bedside Urine Bilirubin - Negative Bedside Urine Ketone - Negative Urine Specific [place] 1.010 Bedside Urine Occult Blood - Negative Bedside Urine pH 7.5 Bedside Urine Protein - Negative Bedside Urine Urobilinogen - Negative Bedside Urine Nitrite - Negative Bedside Urine Leukocytes - Negative Esterase Imaging Data Chest x-ray: Radiologist's impression: [address] [address] XRay Report Signed Patient: Naveed Mayen [facility]#: [id number] : 9Acct:[id number] Age/Sex: 57 / MDate of Service: 02/26/18 Loc: ED Accession Number: [id number] Procedure: XR chest 1V Ordering Provider: Wes Serrano D.O. PROCEDURE: XR CHEST 1V INDICATIONS: chest pain TECHNIQUE: One view of the chest was acquired. COMPARISON: None. FINDINGS: Surgical changes and devices: None. Lungs and pleura: No pleural effusions or pneumothorax. No acute consolidation. Scattered subsegmental atelectasis and/or scarring Mediastinum: Mediastinal contours appear normal. Heart size is normal. Bones and chest wall: No suspicious bony lesions. Overlying soft tissues appear unremarkable. IMPRESSION: No acute disease. Dictated by: Quoc Higgins M.D. on 02/26/2018 at 17:05 Approved by: Quoc Higgins M.D. on 02/26/2018 at 17:06 ECG Data Interpretation: EKG shows a sinus tachycardia with no ST elevation or depression. No ectopy. Ventricular rate of 135. MDM Narrative Medical decision making narrative: CBC and Chem panel were obtained were unremarkable. Cardiac enzymes were obtained were negative. D-dimer was at 2:30 a.m. less than 500 for concern for D-dimer. EKG shows sinus tachycardia no ST elevation or depression no ectopy. Chest x-ray was obtained was negative. Influenza swab was obtained and was negative. Procalcitonin and lactate were negative. Patient was given 2 L of fluids in the emergency room. Heart rate did not improve after fluids. He presents as having a viral upper respiratory infection however, Due to concern for heart rate did not respond to hydration patient is admitted to observation. <Rubi Trotter, DO - Last Filed: 02/27/18 04:27> Lab Data Attestation: I reviewed the patient's lab results. Lab Results 02/26/18 02/26/18 02/26/18 Range/Units 15:35 15:53 16:15 WBC 8.5 (4.5-11.0) X10^3/uL RBC 5.74 (4.5-5.9) X10^6/uL Hgb 15.2 (13.5-17.5) g/dL Hct 45.7 (41-53) % MCV 79.5 L (80-100) fL MCH 26.5 (26-34) PG MCHC 33.3 (30-36) % RDW 16.1 H (11.6-14.8) % Plt Count 245 (150-400) X10^3/uL Neut % (Auto) 77.5 H (50-75) % Lymph % (Auto) 8.7 L (25-40) % [place] % (Auto) 10.5 (3-14) % Eos % (Auto) 2.5 (2-4) % Baso % (Auto) 0.8 (0-2) % Neut # (Auto) 6600 (5006-8725) /uL Lymph # (Auto) 700 L (8154-9910) /uL [place] # (Auto) 900 (0-900) /uL Eos # (Auto) 200 (0-450) /uL Baso # (Auto) 100 (0-100) /uL PT (10.1-12.7) SECONDS INR (0.9-1.3) APTT (26.4-36.2) SECONDS D-Dimer (<230) ng/mL Sodium (137-145) mmol/L Potassium (3.4-5.1) mmol/L Chloride (98-107) mmol/L Carbon Dioxide (22-32) mmol/L BUN (9-20) mg/dL Creatinine (0.66-1.25) mg/dL Estimated GFR (>60) mL/min BUN/Creatinine Ratio (6-22) Glucose (70-100) mg/dL Lactate (0.7-2.1) mmol/L Calcium (8.4-10.2) mg/dL Magnesium 2.1 (1.6-2.3) mg/dL Total Bilirubin (0.2-1.3) mg/dL AST (17-59) IU/L ALT (21-72) IU/L Alkaline Phosphatase (38-126) U/L Total Creatine Kinase (55-170) U/L CK-MB (CK-2) CK-MB (CK-2) Rel Index Troponin I (0.01-0.034) ng/mL B-Natriuretic Peptide < 100 (<100) Total Protein (6.3-8.2) g/dL Albumin (3.5-5.0) g/dL Globulin (1.7-4.1) g/dL Albumin/Globulin Ratio (1.0-2.8) Lipase (23-300) U/L Procalcitonin (<0.5) ng/mL TSH (0.47-4.68) uIU/mL Urine Color Urine Appearance Urine pH (4.5-8.0) Ur Specific [place] (1.000-1.035) Urine Protein (Negative) Urine Glucose (UA) (Negative) g/dL Urine Ketones (NEGATIVE) Urine Occult Blood (Negative) Urine Nitrate (Negative) Urine Bilirubin (NEGATIVE) Urine Urobilinogen (0.2) E.U./dL Ur Leukocyte Esterase (NEGATIVE) Urine Opiates Screen (Negative) Ur Oxycodone Screen (Negative) Urine Methadone Screen (Negative) Ur Barbiturates Screen (Negative) U Tricyclic Antidepress (Negative) Ur Phencyclidine Scrn (Negative) Ur Amphetamines Screen (Negative) U Methamphetamines Scrn (Negative) Ur MDMA Scrn (Ecstasy) (Negative) U Benzodiazepines Scrn (Negative) Urine Cocaine Screen (Negative) U Marijuana (THC) Screen (Negative) Ethyl Alcohol mg/dL Chlamy pneumoniae PCR (Not Detect) Adenovirus (PCR) (Not Detect) B.parapertussis DNA PCR (Not Detect) Coronavirus OC43 (PCR) (Not Detect) Coronavirus HKU1 (PCR) (Not Detect) Coronavirus 229E (PCR) (Not Detect) Coronavirus NL63 (PCR) (Not Detect) Human Metapneumovir PCR (Not Detect) Influenza Type A (PCR) (Not Detect) Influenza Type B (PCR) (Not Detect) Influenza A & B (PCR) (Negative) M. pneumoniae (PCR) (Not Detect) Parainfluenza 1 (PCR) (Not Detect) Parainfluenza 2 (PCR) (Not Detect) Parainfluenza 3 (PCR) (Not Detect) Parainfluenza 4 (PCR) (Not Detect) RSV (PCR) (Not Detect) Entero/Rhino (PCR) (Not Detect) 02/26/18 02/26/18 02/26/18 Range/Units 16:15 16:15 16:15 WBC (4.5-11.0) X10^3/uL RBC (4.5-5.9) X10^6/uL Hgb (13.5-17.5) g/dL Hct (41-53) % MCV (80-100) fL MCH (26-34) PG MCHC (30-36) % RDW (11.6-14.8) % Plt Count (150-400) X10^3/uL Neut % (Auto) (50-75) % Lymph % (Auto) (25-40) % [place] % (Auto) (3-14) % Eos % (Auto) (2-4) % Baso % (Auto) (0-2) % Neut # (Auto) (2895-5082) /uL Lymph # (Auto) (9572-9401) /uL [place] # (Auto) (0-900) /uL Eos # (Auto) (0-450) /uL Baso # (Auto) (0-100) /uL PT 12.0 (10.1-12.7) SECONDS INR 1.0 (0.9-1.3) APTT 36 (26.4-36.2) SECONDS D-Dimer 233 H (<230) ng/mL Sodium 141 (137-145) mmol/L Potassium 3.9 (3.4-5.1) mmol/L Chloride 108 H (98-107) mmol/L Carbon Dioxide 22 (22-32) mmol/L BUN 9 (9-20) mg/dL Creatinine 0.70 (0.66-1.25) mg/dL Estimated GFR > 60.0 (>60) mL/min BUN/Creatinine Ratio 12.9 (6-22) Glucose 77 (70-100) mg/dL Lactate (0.7-2.1) mmol/L Calcium 9.4 (8.4-10.2) mg/dL Magnesium (1.6-2.3) mg/dL Total Bilirubin 0.6 (0.2-1.3) mg/dL AST 28 (17-59) IU/L ALT 30 (21-72) IU/L Alkaline Phosphatase 65 (38-126) U/L Total Creatine Kinase 44 L (55-170) U/L CK-MB (CK-2) TNP CK-MB (CK-2) Rel Index TNP Troponin I < 0.012 (0.01-0.034) ng/mL B-Natriuretic Peptide (<100) Total Protein 7.6 (6.3-8.2) g/dL Albumin 4.3 (3.5-5.0) g/dL Globulin 3.3 (1.7-4.1) g/dL Albumin/Globulin Ratio 1.3 (1.0-2.8) Lipase 101 (23-300) U/L Procalcitonin (<0.5) ng/mL TSH (0.47-4.68) uIU/mL Urine Color Urine Appearance Urine pH (4.5-8.0) Ur Specific [place] (1.000-1.035) Urine Protein (Negative) Urine Glucose (UA) (Negative) g/dL Urine Ketones (NEGATIVE) Urine Occult Blood (Negative) Urine Nitrate (Negative) Urine Bilirubin (NEGATIVE) Urine Urobilinogen (0.2) E.U./dL Ur Leukocyte Esterase (NEGATIVE) Urine Opiates Screen (Negative) Ur Oxycodone Screen (Negative) Urine Methadone Screen (Negative) Ur Barbiturates Screen (Negative) U Tricyclic Antidepress (Negative) Ur Phencyclidine Scrn (Negative) Ur Amphetamines Screen (Negative) U Methamphetamines Scrn (Negative) Ur MDMA Scrn (Ecstasy) (Negative) U Benzodiazepines Scrn (Negative) Urine Cocaine Screen (Negative) U Marijuana (THC) Screen (Negative) Ethyl Alcohol mg/dL Chlamy pneumoniae PCR (Not Detect) Adenovirus (PCR) (Not Detect) B.parapertussis DNA PCR (Not Detect) Coronavirus OC43 (PCR) (Not Detect) Coronavirus HKU1 (PCR) (Not Detect) Coronavirus 229E (PCR) (Not Detect) Coronavirus NL63 (PCR) (Not Detect) Human Metapneumovir PCR (Not Detect) Influenza Type A (PCR) (Not Detect) Influenza Type B (PCR) (Not Detect) Influenza A & B (PCR) (Negative) M. pneumoniae (PCR) (Not Detect) Parainfluenza 1 (PCR) (Not Detect) Parainfluenza 2 (PCR) (Not Detect) Parainfluenza 3 (PCR) (Not Detect) Parainfluenza 4 (PCR) (Not Detect) RSV (PCR) (Not Detect) Entero/Rhino (PCR) (Not Detect) 02/26/18 02/26/18 02/26/18 Range/Units 16:15 17:41 17:41 WBC (4.5-11.0) X10^3/uL RBC (4.5-5.9) X10^6/uL Hgb (13.5-17.5) g/dL Hct (41-53) % MCV (80-100) fL MCH (26-34) PG MCHC (30-36) % RDW (11.6-14.8) % Plt Count (150-400) X10^3/uL Neut % (Auto) (50-75) % Lymph % (Auto) (25-40) % [place] % (Auto) (3-14) % Eos % (Auto) (2-4) % Baso % (Auto) (0-2) % Neut # (Auto) (1609-8585) /uL Lymph # (Auto) (3162-7638) /uL [place] # (Auto) (0-900) /uL Eos # (Auto) (0-450) /uL Baso # (Auto) (0-100) /uL PT (10.1-12.7) SECONDS INR (0.9-1.3) APTT (26.4-36.2) SECONDS D-Dimer (<230) ng/mL Sodium (137-145) mmol/L Potassium (3.4-5.1) mmol/L Chloride (98-107) mmol/L Carbon Dioxide (22-32) mmol/L BUN (9-20) mg/dL Creatinine (0.66-1.25) mg/dL Estimated GFR (>60) mL/min BUN/Creatinine Ratio (6-22) Glucose (70-100) mg/dL Lactate 1.9 (0.7-2.1) mmol/L Calcium (8.4-10.2) mg/dL Magnesium (1.6-2.3) mg/dL Total Bilirubin (0.2-1.3) mg/dL AST (17-59) IU/L ALT (21-72) IU/L Alkaline Phosphatase (38-126) U/L Total Creatine Kinase (55-170) U/L CK-MB (CK-2) CK-MB (CK-2) Rel Index Troponin I (0.01-0.034) ng/mL B-Natriuretic Peptide (<100) Total Protein (6.3-8.2) g/dL Albumin (3.5-5.0) g/dL Globulin (1.7-4.1) g/dL Albumin/Globulin Ratio (1.0-2.8) Lipase (23-300) U/L Procalcitonin < 0.05 (<0.5) ng/mL TSH (0.47-4.68) uIU/mL Urine Color Urine Appearance Urine pH (4.5-8.0) Ur Specific [place] (1.000-1.035) Urine Protein (Negative) Urine Glucose (UA) (Negative) g/dL Urine Ketones (NEGATIVE) Urine Occult Blood (Negative) Urine Nitrate (Negative) Urine Bilirubin (NEGATIVE) Urine Urobilinogen (0.2) E.U./dL Ur Leukocyte Esterase (NEGATIVE) Urine Opiates Screen (Negative) Ur Oxycodone Screen (Negative) Urine Methadone Screen (Negative) Ur Barbiturates Screen (Negative) U Tricyclic Antidepress (Negative) Ur Phencyclidine Scrn (Negative) Ur Amphetamines Screen (Negative) U Methamphetamines Scrn (Negative) Ur MDMA Scrn (Ecstasy) (Negative) U Benzodiazepines Scrn (Negative) Urine Cocaine Screen (Negative) U Marijuana (THC) Screen (Negative) Ethyl Alcohol < 10 mg/dL Chlamy pneumoniae PCR (Not Detect) Adenovirus (PCR) (Not Detect) B.parapertussis DNA PCR (Not Detect) Coronavirus OC43 (PCR) (Not Detect) Coronavirus HKU1 (PCR) (Not Detect) Coronavirus 229E (PCR) (Not Detect) Coronavirus NL63 (PCR) (Not Detect) Human Metapneumovir PCR (Not Detect) Influenza Type A (PCR) (Not Detect) Influenza Type B (PCR) (Not Detect) Influenza A & B (PCR) (Negative) M. pneumoniae (PCR) (Not Detect) Parainfluenza 1 (PCR) (Not Detect) Parainfluenza 2 (PCR) (Not Detect) Parainfluenza 3 (PCR) (Not Detect) Parainfluenza 4 (PCR) (Not Detect) RSV (PCR) (Not Detect) Entero/Rhino (PCR) (Not Detect) 02/26/18 02/26/18 02/26/18 Range/Units 19:10 22:30 Unknown WBC (4.5-11.0) X10^3/uL RBC (4.5-5.9) X10^6/uL Hgb (13.5-17.5) g/dL Hct (41-53) % MCV (80-100) fL MCH (26-34) PG MCHC (30-36) % RDW (11.6-14.8) % Plt Count (150-400) X10^3/uL Neut % (Auto) (50-75) % Lymph % (Auto) (25-40) % [place] % (Auto) (3-14) % Eos % (Auto) (2-4) % Baso % (Auto) (0-2) % Neut # (Auto) (2896-6294) /uL Lymph # (Auto) (2730-9591) /uL [place] # (Auto) (0-900) /uL Eos # (Auto) (0-450) /uL Baso # (Auto) (0-100) /uL PT (10.1-12.7) SECONDS INR (0.9-1.3) APTT (26.4-36.2) SECONDS D-Dimer (<230) ng/mL Sodium (137-145) mmol/L Potassium (3.4-5.1) mmol/L Chloride (98-107) mmol/L Carbon Dioxide (22-32) mmol/L BUN (9-20) mg/dL Creatinine (0.66-1.25) mg/dL Estimated GFR (>60) mL/min BUN/Creatinine Ratio (6-22) Glucose (70-100) mg/dL Lactate (0.7-2.1) mmol/L Calcium (8.4-10.2) mg/dL Magnesium (1.6-2.3) mg/dL Total Bilirubin (0.2-1.3) mg/dL AST (17-59) IU/L ALT (21-72) IU/L Alkaline Phosphatase (38-126) U/L Total Creatine Kinase (55-170) U/L CK-MB (CK-2) CK-MB (CK-2) Rel Index Troponin I (0.01-0.034) ng/mL B-Natriuretic Peptide (<100) Total Protein (6.3-8.2) g/dL Albumin (3.5-5.0) g/dL Globulin (1.7-4.1) g/dL Albumin/Globulin Ratio (1.0-2.8) Lipase (23-300) U/L Procalcitonin (<0.5) ng/mL TSH 4.88 H (0.47-4.68) uIU/mL Urine Color Urine Appearance Urine pH (4.5-8.0) Ur Specific [place] (1.000-1.035) Urine Protein (Negative) Urine Glucose (UA) (Negative) g/dL Urine Ketones (NEGATIVE) Urine Occult Blood (Negative) Urine Nitrate (Negative) Urine Bilirubin (NEGATIVE) Urine Urobilinogen (0.2) E.U./dL Ur Leukocyte Esterase (NEGATIVE) Urine Opiates Screen (Negative) Ur Oxycodone Screen (Negative) Urine Methadone Screen (Negative) Ur Barbiturates Screen (Negative) U Tricyclic Antidepress (Negative) Ur Phencyclidine Scrn (Negative) Ur Amphetamines Screen (Negative) U Methamphetamines Scrn (Negative) Ur MDMA Scrn (Ecstasy) (Negative) U Benzodiazepines Scrn (Negative) Urine Cocaine Screen (Negative) U Marijuana (THC) Screen (Negative) Ethyl Alcohol mg/dL Chlamy pneumoniae PCR Not detected (Not Detect) Adenovirus (PCR) Not detected (Not Detect) B.parapertussis DNA PCR Not detected (Not Detect) Coronavirus OC43 (PCR) Not detected (Not Detect) Coronavirus HKU1 (PCR) Not detected (Not Detect) Coronavirus 229E (PCR) Not detected (Not Detect) Coronavirus NL63 (PCR) Not detected (Not Detect) Human Metapneumovir PCR Not detected (Not Detect) Influenza Type A (PCR) Detected H (Not Detect) Influenza Type B (PCR) Not detected (Not Detect) Influenza A & B (PCR) Negative (Negative) M. pneumoniae (PCR) Not detected (Not Detect) Parainfluenza 1 (PCR) Not detected (Not Detect) Parainfluenza 2 (PCR) Not detected (Not Detect) Parainfluenza 3 (PCR) Not detected (Not Detect) Parainfluenza 4 (PCR) Not detected (Not Detect) RSV (PCR) Not detected (Not Detect) Entero/Rhino (PCR) Not detected (Not Detect) 02/27/18 02/27/18 02/27/18 Range/Units 00:12 00:20 00:20 WBC (4.5-11.0) X10^3/uL RBC (4.5-5.9) X10^6/uL Hgb (13.5-17.5) g/dL Hct (41-53) % MCV (80-100) fL MCH (26-34) PG MCHC (30-36) % RDW (11.6-14.8) % Plt Count (150-400) X10^3/uL Neut % (Auto) (50-75) % Lymph % (Auto) (25-40) % [place] % (Auto) (3-14) % Eos % (Auto) (2-4) % Baso % (Auto) (0-2) % Neut # (Auto) (2958-4321) /uL Lymph # (Auto) (3704-2160) /uL [place] # (Auto) (0-900) /uL Eos # (Auto) (0-450) /uL Baso # (Auto) (0-100) /uL PT (10.1-12.7) SECONDS INR (0.9-1.3) APTT (26.4-36.2) SECONDS D-Dimer (<230) ng/mL Sodium (137-145) mmol/L Potassium (3.4-5.1) mmol/L Chloride (98-107) mmol/L Carbon Dioxide (22-32) mmol/L BUN (9-20) mg/dL Creatinine (0.66-1.25) mg/dL Estimated GFR (>60) mL/min BUN/Creatinine Ratio (6-22) Glucose (70-100) mg/dL Lactate (0.7-2.1) mmol/L Calcium (8.4-10.2) mg/dL Magnesium (1.6-2.3) mg/dL Total Bilirubin (0.2-1.3) mg/dL AST (17-59) IU/L ALT (21-72) IU/L Alkaline Phosphatase (38-126) U/L Total Creatine Kinase (55-170) U/L CK-MB (CK-2) CK-MB (CK-2) Rel Index Troponin I < 0.012 (0.01-0.034) ng/mL B-Natriuretic Peptide (<100) Total Protein (6.3-8.2) g/dL Albumin (3.5-5.0) g/dL Globulin (1.7-4.1) g/dL Albumin/Globulin Ratio (1.0-2.8) Lipase (23-300) U/L Procalcitonin (<0.5) ng/mL TSH (0.47-4.68) uIU/mL Urine Color Yellow Urine Appearance Clear Urine pH 7.5 (4.5-8.0) Ur Specific [place] 1.015 (1.000-1.035) Urine Protein Negative (Negative) Urine Glucose (UA) Negative (Negative) g/dL Urine Ketones Negative (NEGATIVE) Urine Occult Blood Negative (Negative) Urine Nitrate Negative (Negative) Urine Bilirubin Negative (NEGATIVE) Urine Urobilinogen 0.2 (0.2) E.U./dL Ur Leukocyte Esterase Negative (NEGATIVE) Urine Opiates Screen Negative (Negative) Ur Oxycodone Screen Negative (Negative) Urine Methadone Screen Negative (Negative) Ur Barbiturates Screen Negative (Negative) U Tricyclic Antidepress Negative (Negative) Ur Phencyclidine Scrn Negative (Negative) Ur Amphetamines Screen Negative (Negative) U Methamphetamines Scrn Negative (Negative) Ur MDMA Scrn (Ecstasy) Negative (Negative) U Benzodiazepines Scrn Negative (Negative) Urine Cocaine Screen Negative (Negative) U Marijuana (THC) Screen Negative (Negative) Ethyl Alcohol mg/dL Chlamy pneumoniae PCR (Not Detect) Adenovirus (PCR) (Not Detect) B.parapertussis DNA PCR (Not Detect) Coronavirus OC43 (PCR) (Not Detect) Coronavirus HKU1 (PCR) (Not Detect) Coronavirus 229E (PCR) (Not Detect) Coronavirus NL63 (PCR) (Not Detect) Human Metapneumovir PCR (Not Detect) Influenza Type A (PCR) (Not Detect) Influenza Type B (PCR) (Not Detect) Influenza A & B (PCR) (Negative) M. pneumoniae (PCR) (Not Detect) Parainfluenza 1 (PCR) (Not Detect) Parainfluenza 2 (PCR) (Not Detect) Parainfluenza 3 (PCR) (Not Detect) Parainfluenza 4 (PCR) (Not Detect) RSV (PCR) (Not Detect) Entero/Rhino (PCR) (Not Detect) Urine Dip Bedside Urine Glucose Negative Bedside Urine Bilirubin - Negative Bedside Urine Ketone - Negative Urine Specific [place] 1.010 Bedside Urine Occult Blood - Negative Bedside Urine pH 7.5 Bedside Urine Protein - Negative Bedside Urine Urobilinogen - Negative Bedside Urine Nitrite - Negative Bedside Urine Leukocytes - Negative Esterase ECG Data Attestation: I personally reviewed and interpreted this ECG as follows: Prior ECG tracings: not available for review Interpretation: Normal sinus rhythm rate [address] changes MDM Narrative Medical decision making narrative: I discussed case with Hilton nolasco. Patient is persistently tachycardic despite IV fluids and fever control. His low risk for any PE. However patient remains tachycardic with unexplained reason. Agree with observation. Discharge Plan Departure Patient Disposition: Admitted As Inpatient Clinical Impression: Tachycardia, Upper respiratory infection Discharge Date/Time: 02/26/18 22:31 Interventions: ED Discharge Assessment Last Done: 02/26/18 22:29 Admit Date/Time: 02/26/18 21:32 Admit Provider: Frannie Gould <Rubi Trotter, - Last Filed: 02/27/18 04:27> Cosign ED Attending Cosbubbaature Attestation: I was immediately available in the department for consultation. Documentation has been reviewed. I agree with assessment and plan.
[2018-02-26 20:07] LABS: Influenza A and B by PCR Rapid Negative (Negative)
[2018-02-26 20:49] LABS: D Dimer 233 ng/mL (<230)
[2018-02-26 22:20] LABS: Thyroid Stimulating Hormone 4.88 uIU/mL (0.47-4.68)
[2018-02-26 22:24] LABS: Magnesium 2.1 mg/dL (1.6-2.3)
--- NOTE | 2018-02-26 23:15 | PC.NURSE ---
Patient up to floor a little after 2200. Patient is a&o, BA active, oriented to call light and its use, is within reach. Tele has been placed. IV in LFA is patent.
[2018-02-26 23:24] LABS: Ethanol (ETOH) < 10 mg/dL
--- NOTE | 2018-02-26 23:45 | PM.HP.1 ---
History of Present Illness Chief complaint: cold or flu symptoms Narrative: The patient is a 57-year-old male of descent who presented to the ED on 02/27/2017 out of concern for chills and flu-like symptoms. Symptom initially noted to 3 weeks ago. Symptom consist of cough with purulence, initially white, and most recently green. There is no increase in phlegm quantity. The cough is frequent, worsened night and when lying down. Developed chills 2 days ago. Associated symptoms include generalized weakness, malaise, muscle ache/cramping, dizziness/lightheadedness (w/ position change), occasional palpitations, and intermittent left anterior chest discomfort. Characterizes chest discomfort is an intermittent dull ache. Denies sensation of tightness or pressure. Patient denies radiation to the back neck jaw or extremities. Patient notes a sore left shoulder with diminished ROM, which he feels is better today. Patient recently relocated from [place] to take a job at [employer]. However, for unknown reasons he was turned down. At present time patient is unemployed, he reports feeling for significant effort under his job search. He notes having limited supply of money. For the past month has been living out of a senior care and or in his car. PMH consists of questionable HTN, LUIS (not on CPAP), hypothyroidism, peptic ulcer disease, and anxiety. In regard to patient's blood pressure, notes that he was trialed on an antihypertensive some time ago, he has taken the medication for 30-60 days, but then was told he does not needed. He was diagnosed with LUIS 18 months ago, by report; however, sensitive to the CPAP mask and for this reason did not continue with the CPAP therapy. Patient reports waking up frequently from a sleep with breathlessness. Patient denies prior history of ASHD, LA, CVA, or thrombosis. On 's has driven from [place], [place] to [place], a [address] car. Patient's father at age of 59 from sudden cardiac . Known to have hypothyroidism, however has not taken his thyroid medication since January. PMH: HTN? LUIS (not on CPAP), hypothyroidism, GERD, peptic ulcer disease, abdominal hernia, penetrating chest trauma, PRIOR tobacco use PSH: EGD, colonoscopy (2016) w/ polypectomy (pre-cancerous), abdominal hernia repair with mesh, and anxiety FHx: Father ( 59), sudden cardiac ; Mother (), alcoholism. SHx: Currently homeless. Resides at a senior care or out of his car. 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 Recently relocated from [place], [place] Allergy: PCN (hives), age 8 Patient History Family & Social History Family History: Reviewed 02/27/18 by ASTRID Chang Social History: household members none Prior Living Arrangements Homeless Safety & Behavioral: Feels Safe in Current Yes Environment Been Physically Hurt or No Threatened By a Person Suicidal Ideation Description None Tobacco & Substance use: Smoking Status Former smoker. Notes a 10-12 history of tobacco use, 5-10 cigarettes daily, quit in his early 30s alcohol intake Current. Denies history of alcoholism or heavy alcohol use. alcohol intake frequency Holiday/special occasion Substance Use Type Denies recreational drug use. Meds Home Medications Medication Instructions Recorded Confirmed Type Antianxiety Med 1 dose PO PRN PRN 02/26/18 02/26/18 History esomeprazole magnesium [Nexium] 20 mg PO PRN PRN 02/26/18 02/26/18 History levothyroxine 1 dose PO DAILY 02/26/18 02/26/18 History Allergies Allergy/AdvReac Type Severity Reaction Status Date / Time Penicillins Allergy Verified 02/26/18 17:00 Review of Systems Review of Systems All systems reviewed & are unremarkable except as noted in HPI and below Exam Vital Signs (past 8 hours): - 02/26/18 15:47 02/26/18 16:42 02/26/18 16:56 Temperature 98.7 F 99.1 F Pulse Rate 137 H 132 H Respiratory Rate 17 18 Blood Pressure 138/91 H Blood Pressure [Left Arm] Pulse Oximetry 97 98 02/26/18 16:59 02/26/18 17:41 02/26/18 19:58 Temperature Pulse Rate 104 H 117 H Respiratory Rate 23 26 H Blood Pressure Blood Pressure [Left Arm] 130/95 H 123/88 137/84 Pulse Oximetry 100 98 02/26/18 20:46 02/26/18 22:36 02/26/18 22:56 Temperature 98.4 F Pulse Rate 120 H 119 H Respiratory Rate 24 19 Blood Pressure 143/99 H Blood Pressure [Left Arm] 133/87 Pulse Oximetry 96 98 98 Oxygen Delivery Method Room Air Oxygen Flow Rate 0 Narrative Exam Narrative: Constitutional: NAD Neurologic: AOx3, no focal neurological deficits Head: NC, AT Eyes: PERRL, EOMI, no scleral icterus Ears: external ears normal, no otorrhea Nose: external nose normal, no rhinorrhea or epistaxis Throat: dry MM, oropharynx w/o exudate Neck: no masses, lymphadenopathy, or JVD Chest / Respiratory: equal chest rise, rales, whild wheezeing throughout Mild conversational dyspnea and tachypnea No palpable chest tenderness Heart / CV: S1S2, no murmur Abdomen / GI: round, NT, ND, + BS, no organomegaly : no suprapubic tenderness, no CVA Peripheral / Vascular: warm to touch, DP and PT pulses palpable, no edema Musc: full ROM of upper and lower extremities, adequate muscle tone and bulk ankles tender to palpation bilatarelly - no edema, erythema, rash or swelling Skin: no ecchymosis or suspicious lesions / ulcers Objective Labs Result Diagrams: 02/26/18 16:15 02/26/18 16:15 Labs: Laboratory Results - last 24 hr 02/26/18 02/26/18 02/26/18 15:53 16:15 16:15 WBC 8.5 RBC 5.74 Hgb 15.2 Hct 45.7 MCV 79.5 L MCH 26.5 MCHC 33.3 RDW 16.1 H Plt Count 245 Neut % (Auto) 77.5 H Lymph % (Auto) 8.7 L [place] % (Auto) 10.5 Eos % (Auto) 2.5 Baso % (Auto) 0.8 Neut # (Auto) 6600 Lymph # (Auto) 700 L [place] # (Auto) 900 Eos # (Auto) 200 Baso # (Auto) 100 PT 12.0 INR 1.0 APTT 36 D-Dimer Sodium Potassium Chloride Carbon Dioxide BUN Creatinine Estimated GFR BUN/Creatinine Ratio Glucose Lactate Calcium Magnesium 2.1 Total Bilirubin AST ALT Alkaline Phosphatase Total Creatine Kinase CK-MB (CK-2) CK-MB (CK-2) Rel Index Troponin I Total Protein Albumin Globulin Albumin/Globulin Ratio Lipase Procalcitonin TSH Ethyl Alcohol Influenza A & B (PCR) 02/26/18 02/26/18 02/26/18 16:15 16:15 16:15 WBC RBC Hgb Hct MCV MCH MCHC RDW Plt Count Neut % (Auto) Lymph % (Auto) Gage % (Auto) Eos % (Auto) Baso % (Auto) Neut # (Auto) Lymph # (Auto) [place] # (Auto) Eos # (Auto) Baso # (Auto) PT INR APTT D-Dimer 233 H Sodium 141 Potassium 3.9 Chloride 108 H Carbon Dioxide 22 BUN 9 Creatinine 0.70 Estimated GFR > 60.0 BUN/Creatinine Ratio 12.9 Glucose 77 Lactate Calcium 9.4 Magnesium Total Bilirubin 0.6 AST 28 ALT 30 Alkaline Phosphatase 65 Total Creatine Kinase 44 L CK-MB (CK-2) TNP CK-MB (CK-2) Rel Index TNP Troponin I < 0.012 Total Protein 7.6 Albumin 4.3 Globulin 3.3 Albumin/Globulin Ratio 1.3 Lipase 101 Procalcitonin TSH Ethyl Alcohol < 10 Influenza A & B (PCR) 02/26/18 02/26/18 02/26/18 17:41 17:41 19:10 WBC RBC Hgb Hct MCV MCH MCHC RDW Plt Count Neut % (Auto) Lymph % (Auto) [place]age % (Auto) Eos % (Auto) Baso % (Auto) Neut # (Auto) Lymph # (Auto) [place] # (Auto) Eos # (Auto) Baso # (Auto) PT INR APTT D-Dimer Sodium Potassium Chloride Carbon Dioxide BUN Creatinine Estimated GFR BUN/Creatinine Ratio Glucose Lactate 1.9 Calcium Magnesium Total Bilirubin AST ALT Alkaline Phosphatase Total Creatine Kinase CK-MB (CK-2) CK-MB (CK-2) Rel Index Troponin I Total Protein Albumin Globulin Albumin/Globulin Ratio Lipase Procalcitonin < 0.05 TSH Ethyl Alcohol Influenza A & B (PCR) Negative 02/26/18 Unknown WBC RBC Hgb Hct MCV MCH MCHC RDW Plt Count Neut % (Auto) Lymph % (Auto) [place]age % (Auto) Eos % (Auto) Baso % (Auto) Neut # (Auto) Lymph # (Auto) [place] # (Auto) Eos # (Auto) Baso # (Auto) PT INR APTT D-Dimer Sodium Potassium Chloride Carbon Dioxide BUN Creatinine Estimated GFR BUN/Creatinine Ratio Glucose Lactate Calcium Magnesium Total Bilirubin AST ALT Alkaline Phosphatase Total Creatine Kinase CK-MB (CK-2) CK-MB (CK-2) Rel Index Troponin I Total Protein Albumin Globulin Albumin/Globulin Ratio Lipase Procalcitonin TSH 4.88 H Ethyl Alcohol Influenza A & B (PCR) Assessment & Plan Plan: Assessment/Plan Narrative: Influenza A 2-3 week history of cough with purulence, chest congestion, sinus pressure/drainage, malaise, myalgia, and chills Influenza A/B swab negative. Respiratory viral PCR panel POSITIVE for Influenza A. WBC 8.5, lactate 1.9, PCT 0.05 - Start on Tamiflu - CXR in am 2 view w/ inspiration in am to r/o PNA, in the setting of worsening purulence, PCT < 0.05 - Blood Cx pending, results to be followed - IVF - Supportive care Cough - Mucinex and Tessalon Perles - Albuterol Tx Q6H prn - Flutter Valve, PEP, TID Dehydration Received 2L of IVF in ED. - Continue IVF at 100 ml/hr - I/O monitoring QShift Tachycardia URI sx. Left sided chest discomfort. Dehydration. - Obtain Mg level, respiratory viral panel, TSH, EtOH level, UA, UDS Mg WNL (no elyte deficiencies). EtOH WNL. Respiratory viral panel + Influenza A UA, UDS, and TSH pending Atypical Chest Pain Likely secondary to chest wall / soft tissue injury of from persistent cough Troponin is WNL. EKG revealing of tachycardia, no ischemia noted. RF: HTN, LUIS (uncontrolled), FHx of sudden cardiac - Continue trending troponins Q6 x2 - Echo in am - patient would benefit from an outpatient stress test Hypothyroidism, has not taking in his levothyroxine since January - TSH level - Nurses to obtain the dose of levothyroxine patient on previously / from previous pharmacy (patient unable to recall) GERD w/ gastritis Complains of dyspepsia. 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 - Start Protonix 40 mg b.i.d. LUIS, not controlled, non adherent to CPAP therapy - education provided on importance of CPAP therapy and associated cardiac sequela Elevated BP, potentially underlying HTN, asymptomatic - Trend BP - Consider starting on an anti-hypertensive agent Quality VTE Deep Vein Thrombosis/Pulmonary Embolism Present on Admission: No
[2018-02-26] MEDS: SODIUM CHLORIDE 0.9% 1,000 ML 75 ML IV (23:53)
[2018-02-27] VITALS (11 sets, daily range): BP systolic 124–154; BP diastolic 72–97; PULSE 68–118; RESP 16–21; TEMP 36.8–37.2; O2SAT 95–98
[2018-02-27 00:30] LABS: Adenovirus Not Detected (Not Detect); Coronavirus 229E Not Detected (Not Detect); Coronavirus HKU1 Not Detected (Not Detect); Coronavirus NL 63 Not Detected (Not Detect); Coronavirus OC43 Not Detected (Not Detect); Human Metapneumovirus Not Detected (Not Detect); Human Rhinovirus/Enterovirus Not Detected (Not Detect)
[2018-02-27 00:31] LABS: Influenza A Detected (Not Detect)
[2018-02-27 00:33] LABS: Bordetella pertussis Not Detected (Not Detect); Chlamydophila pneumoniae Not Detected (Not Detect); Influenza B Not Detected (Not Detect); Mycoplasma pneumoniae Not Detected (Not Detect); Parainfluenza Virus 1 Not Detected (Not Detect); Parainfluenza Virus 2 Not Detected (Not Detect); Parainfluenza Virus 3 Not Detected (Not Detect); Parainfluenza Virus 4 Not Detected (Not Detect); Respiratory Syncytial Virus Not Detected (Not Detect)
[2018-02-27 00:40] LABS: Troponin I < 0.012 ng/mL (0.01-0.034)
[2018-02-27] MEDS: HEPARIN 5,000 UNIT/ML VIAL 5000 UNIT SUBCUT ×3 (01:02→20:10)
[2018-02-27 01:36] LABS: B Type Natriuretic Peptide < 100 (<100)
[2018-02-27] MEDS: OSELTAMIVIR 75 MG CAPSULE PO ×3 (01:37→20:10)
[2018-02-27] MEDS: BENZONATATE 100 MG CAPSULE PO ×3 (01:38→20:09)
[2018-02-27] MEDS: guaiFENesin ER 600 MG TAB PO ×2 (02:14→09:26)
[2018-02-27 03:30] LABS: Bacteria Urine None Seen; RBC Urine None Seen (0-5/HPF); WBC Urine None Seen (0-5/HPF)
[2018-02-27 03:44] LABS: Appearance Urine UA CLEAR; Bilirubin Urine UA NEGATIVE (NEGATIVE); Color Urine UA YELLOW; Glucose Urine UA NEGATIVE (Negative); Ketones Urine UA NEGATIVE (NEGATIVE); Leukocyte Esterase Urine UA NEGATIVE (NEGATIVE); Nitrite Urine UA NEGATIVE (Negative); Occult Blood Urine UA NEGATIVE (Negative); Protein Urine UA NEGATIVE (Negative); Specific Gravity Urine UA 1.015 (1.000-1.035); Urobilinogen Urine UA 0.2 E.U./dL (0.2); pH Urine UA 7.5 (4.5-8.0)
[2018-02-27 03:49] LABS: Urine Amphetamines Negative (Negative); Urine Barbiturates Negative (Negative); Urine Benzodiazepines Negative (Negative); Urine Cocaine Negative (Negative); Urine MDMA Negative (Negative); Urine Methadone Negative (Negative); Urine Methamphetamines Negative (Negative); Urine Morphine/Opi cutoff 2000 Negative (Negative); Urine Oxycodone Negative (Negative); Urine Phencyclidine Negative (Negative); Urine Tetrahydrocannabinol Negative (Negative); Urine Tricyclic Antidepressant Negative (Negative)
--- NOTE | 2018-02-27 06:00 | DI.RAD.S_ITS ---
PROCEDURE: XR CHEST 2V INDICATIONS: cough, purulence, dyspnea TECHNIQUE: 2 views of the chest were acquired. COMPARISON: None. FINDINGS: Surgical changes and devices: None. Lungs and pleura: No pleural effusions or pneumothorax. Lungs are clear. Mediastinum: Mediastinal contours are normal. Heart size is normal. Bones and chest wall: No suspicious bony abnormalities. Soft tissues appear unremarkable. IMPRESSION: No acute cardiopulmonary findings. Dictated by: Jade Neves M.D. on 02/27/2018 at 8:41 Approved by: Jade Neves M.D. on 02/27/2018 at 8:41
[2018-02-27] MEDS: ACETAMINOPHEN 325 MG TABLET 650 MG PO ×2 (06:46→14:20)
[2018-02-27] MEDS: PANTOPRAZOLE 40 MG TABLET PO (06:47)
[2018-02-27 06:52] LABS: Troponin I < 0.012 ng/mL (0.01-0.034)
[2018-02-27 07:36] LABS: Culture Indicated Urine Cult Not Indicated; Urine Comments Microscopic Normal
--- NOTE | 2018-02-27 10:52 | PC.NURSE ---
Addendum entered by Vanessa Sarkar R.N. 02/27/18 14:39: PAIN/RESP - less freq cough, continues w/left shoulder discomfort, given 650mg po tylenol and scheduled tessalon. Original Note: AM NOTE - alert, dry, congested non productive cough, some discomfort l shoulder w/hx surg, given guif this am, to xr via wc, hr 116 and ra 98%, bs dim.
--- NOTE | 2018-02-27 12:13 | PM.PN.1 ---
Subjective Date Patient Seen: 02/27/18 Interval history: Patient admitted with influenza infection. He has persistent frequent cough and has been mildly tachycardic in sinus rhythm. Remains afebrile. Exam Vital Signs (past 8 hours): - 02/27/18 05:00 02/27/18 08:15 02/27/18 09:27 Temperature 98.3 F 98.7 F Pulse Rate 117 H 118 H Respiratory Rate 18 19 Blood Pressure 134/83 131/87 Pulse Oximetry 97 98 96 Oxygen Delivery Method Room Air Oxygen Flow Rate 0 Narrative Exam Narrative: GENERAL: Patient is in no acute distress HEENT: Pupils equal CHEST: Breathing nonlabored, faint end expiratory wheeze bilaterally, no crackles CARDIAC: Regular rate and rhythm. ABDOMEN: Nondistended, soft, nontender EXTREMITIES: no edema. NEUROLOGICAL: Alert, pleasant, no focal findings SKIN: Warm, dry, no petechiae, no rash Objective Labs Result Diagrams: 02/26/18 16:15 02/26/18 16:15 Labs: Laboratory Results - last 24 hr 02/26/18 02/26/18 02/26/18 15:35 15:53 16:15 WBC 8.5 RBC 5.74 Hgb 15.2 Hct 45.7 MCV 79.5 L MCH 26.5 MCHC 33.3 RDW 16.1 H Plt Count 245 Neut % (Auto) 77.5 H Lymph % (Auto) 8.7 L [place] % (Auto) 10.5 Eos % (Auto) 2.5 Baso % (Auto) 0.8 Neut # (Auto) 6600 Lymph # (Auto) 700 L [place] # (Auto) 900 Eos # (Auto) 200 Baso # (Auto) 100 PT INR APTT D-Dimer Sodium Potassium Chloride Carbon Dioxide BUN Creatinine Estimated GFR BUN/Creatinine Ratio Glucose Lactate Calcium Magnesium 2.1 Total Bilirubin AST ALT Alkaline Phosphatase Total Creatine Kinase CK-MB (CK-2) CK-MB (CK-2) Rel Index Troponin I B-Natriuretic Peptide < 100 Total Protein Albumin Globulin Albumin/Globulin Ratio Lipase Procalcitonin TSH Urine Color Urine Appearance Urine pH Ur Specific [place] Urine Protein Urine Glucose (UA) Urine Ketones Urine Occult Blood Urine Nitrate Urine Bilirubin Urine Urobilinogen Ur Leukocyte Esterase Urine RBC Urine WBC Urine Bacteria Ur Culture Indicated? Micro UA Comment Urine Opiates Screen Ur Oxycodone Screen Urine Methadone Screen Ur Barbiturates Screen U Tricyclic Antidepress Ur Phencyclidine Scrn Ur Amphetamines Screen U Methamphetamines Scrn Ur MDMA Scrn (Ecstasy) U Benzodiazepines Scrn Urine Cocaine Screen U Marijuana (THC) Screen Ethyl Alcohol Chlamy pneumoniae PCR Adenovirus (PCR) B.parapertussis DNA PCR Coronavirus OC43 (PCR) Coronavirus HKU1 (PCR) Coronavirus 229E (PCR) Coronavirus NL63 (PCR) Human Metapneumovir PCR Influenza Type A (PCR) Influenza Type B (PCR) Influenza A & B (PCR) M. pneumoniae (PCR) Parainfluenza 1 (PCR) Parainfluenza 2 (PCR) Parainfluenza 3 (PCR) Parainfluenza 4 (PCR) RSV (PCR) Entero/Rhino (PCR) 02/26/18 02/26/18 02/26/18 16:15 16:15 16:15 WBC RBC Hgb Hct MCV MCH MCHC RDW Plt Count Neut % (Auto) Lymph % (Auto) [place] % (Auto) Eos % (Auto) Baso % (Auto) Neut # (Auto) Lymph # (Auto) [place] # (Auto) Eos # (Auto) Baso # (Auto) PT 12.0 INR 1.0 APTT 36 D-Dimer 233 H Sodium 141 Potassium 3.9 Chloride 108 H Carbon Dioxide 22 BUN 9 Creatinine 0.70 Estimated GFR > 60.0 BUN/Creatinine Ratio 12.9 Glucose 77 Lactate Calcium 9.4 Magnesium Total Bilirubin 0.6 AST 28 ALT 30 Alkaline Phosphatase 65 Total Creatine Kinase 44 L CK-MB (CK-2) TNP CK-MB (CK-2) Rel Index TNP Troponin I < 0.012 B-Natriuretic Peptide Total Protein 7.6 Albumin 4.3 Globulin 3.3 Albumin/Globulin Ratio 1.3 Lipase 101 Procalcitonin TSH Urine Color Urine Appearance Urine pH Ur Specific [place] Urine Protein Urine Glucose (UA) Urine Ketones Urine Occult Blood Urine Nitrate Urine Bilirubin Urine Urobilinogen Ur Leukocyte Esterase Urine RBC Urine WBC Urine Bacteria Ur Culture Indicated? Micro UA Comment Urine Opiates Screen Ur Oxycodone Screen Urine Methadone Screen Ur Barbiturates Screen U Tricyclic Antidepress Ur Phencyclidine Scrn Ur Amphetamines Screen U Methamphetamines Scrn Ur MDMA Scrn (Ecstasy) U Benzodiazepines Scrn Urine Cocaine Screen U Marijuana (THC) Screen Ethyl Alcohol Chlamy pneumoniae PCR Adenovirus (PCR) B.parapertussis DNA PCR Coronavirus OC43 (PCR) Coronavirus HKU1 (PCR) Coronavirus 229E (PCR) Coronavirus NL63 (PCR) Human Metapneumovir PCR Influenza Type A (PCR) Influenza Type B (PCR) Influenza A & B (PCR) M. pneumoniae (PCR) Parainfluenza 1 (PCR) Parainfluenza 2 (PCR) Parainfluenza 3 (PCR) Parainfluenza 4 (PCR) RSV (PCR) Entero/Rhino (PCR) 02/26/18 02/26/18 02/26/18 16:15 17:41 17:41 WBC RBC Hgb Hct MCV MCH MCHC RDW Plt Count Neut % (Auto) Lymph % (Auto) [place] % (Auto) Eos % (Auto) Baso % (Auto) Neut # (Auto) Lymph # (Auto) [place] # (Auto) Eos # (Auto) Baso # (Auto) PT INR APTT D-Dimer Sodium Potassium Chloride Carbon Dioxide BUN Creatinine Estimated GFR BUN/Creatinine Ratio Glucose Lactate 1.9 Calcium Magnesium Total Bilirubin AST ALT Alkaline Phosphatase Total Creatine Kinase CK-MB (CK-2) CK-MB (CK-2) Rel Index Troponin I B-Natriuretic Peptide Total Protein Albumin Globulin Albumin/Globulin Ratio Lipase Procalcitonin < 0.05 TSH Urine Color Urine Appearance Urine pH Ur Specific [place] Urine Protein Urine Glucose (UA) Urine Ketones Urine Occult Blood Urine Nitrate Urine Bilirubin Urine Urobilinogen Ur Leukocyte Esterase Urine RBC Urine WBC Urine Bacteria Ur Culture Indicated? Micro UA Comment Urine Opiates Screen Ur Oxycodone Screen Urine Methadone Screen Ur Barbiturates Screen U Tricyclic Antidepress Ur Phencyclidine Scrn Ur Amphetamines Screen U Methamphetamines Scrn Ur MDMA Scrn (Ecstasy) U Benzodiazepines Scrn Urine Cocaine Screen U Marijuana (THC) Screen Ethyl Alcohol < 10 Chlamy pneumoniae PCR Adenovirus (PCR) B.parapertussis DNA PCR Coronavirus OC43 (PCR) Coronavirus HKU1 (PCR) Coronavirus 229E (PCR) Coronavirus NL63 (PCR) Human Metapneumovir PCR Influenza Type A (PCR) Influenza Type B (PCR) Influenza A & B (PCR) M. pneumoniae (PCR) Parainfluenza 1 (PCR) Parainfluenza 2 (PCR) Parainfluenza 3 (PCR) Parainfluenza 4 (PCR) RSV (PCR) Entero/Rhino (PCR) 02/26/18 02/26/18 02/26/18 19:10 22:30 Unknown WBC RBC Hgb Hct MCV MCH MCHC RDW Plt Count Neut % (Auto) Lymph % (Auto) [place] % (Auto) Eos % (Auto) Baso % (Auto) Neut # (Auto) Lymph # (Auto) [place] # (Auto) Eos # (Auto) Baso # (Auto) PT INR APTT D-Dimer Sodium Potassium Chloride Carbon Dioxide BUN Creatinine Estimated GFR BUN/Creatinine Ratio Glucose Lactate Calcium Magnesium Total Bilirubin AST ALT Alkaline Phosphatase Total Creatine Kinase CK-MB (CK-2) CK-MB (CK-2) Rel Index Troponin I B-Natriuretic Peptide Total Protein Albumin Globulin Albumin/Globulin Ratio Lipase Procalcitonin TSH 4.88 H Urine Color Urine Appearance Urine pH Ur Specific [place] Urine Protein Urine Glucose (UA) Urine Ketones Urine Occult Blood Urine Nitrate Urine Bilirubin Urine Urobilinogen Ur Leukocyte Esterase Urine RBC Urine WBC Urine Bacteria Ur Culture Indicated? Micro UA Comment Urine Opiates Screen Ur Oxycodone Screen Urine Methadone Screen Ur Barbiturates Screen U Tricyclic Antidepress Ur Phencyclidine Scrn Ur Amphetamines Screen U Methamphetamines Scrn Ur MDMA Scrn (Ecstasy) U Benzodiazepines Scrn Urine Cocaine Screen U Marijuana (THC) Screen Ethyl Alcohol Chlamy pneumoniae PCR Not detected Adenovirus (PCR) Not detected B.parapertussis DNA PCR Not detected Coronavirus OC43 (PCR) Not detected Coronavirus HKU1 (PCR) Not detected Coronavirus 229E (PCR) Not detected Coronavirus NL63 (PCR) Not detected Human Metapneumovir PCR Not detected Influenza Type A (PCR) Detected H Influenza Type B (PCR) Not detected Influenza A & B (PCR) Negative M. pneumoniae (PCR) Not detected Parainfluenza 1 (PCR) Not detected Parainfluenza 2 (PCR) Not detected Parainfluenza 3 (PCR) Not detected Parainfluenza 4 (PCR) Not detected RSV (PCR) Not detected Entero/Rhino (PCR) Not detected 02/27/18 02/27/18 02/27/18 00:12 00:20 00:20 WBC RBC Hgb Hct MCV MCH MCHC RDW Plt Count Neut % (Auto) Lymph % (Auto) [place] % (Auto) Eos % (Auto) Baso % (Auto) Neut # (Auto) Lymph # (Auto) [place] # (Auto) Eos # (Auto) Baso # (Auto) PT INR APTT D-Dimer Sodium Potassium Chloride Carbon Dioxide BUN Creatinine Estimated GFR BUN/Creatinine Ratio Glucose Lactate Calcium Magnesium Total Bilirubin AST ALT Alkaline Phosphatase Total Creatine Kinase CK-MB (CK-2) CK-MB (CK-2) Rel Index Troponin I < 0.012 B-Natriuretic Peptide Total Protein Albumin Globulin Albumin/Globulin Ratio Lipase Procalcitonin TSH Urine Color Yellow Urine Appearance Clear Urine pH 7.5 Ur Specific [place] 1.015 Urine Protein Negative Urine Glucose (UA) Negative Urine Ketones Negative Urine Occult Blood Negative Urine Nitrate Negative Urine Bilirubin Negative Urine Urobilinogen 0.2 Ur Leukocyte Esterase Negative Urine RBC None seen Urine WBC None seen Urine Bacteria None seen Ur Culture Indicated? Cult not indicated Micro UA Comment Microscopic normal Urine Opiates Screen Negative Ur Oxycodone Screen Negative Urine Methadone Screen Negative Ur Barbiturates Screen Negative U Tricyclic Antidepress Negative Ur Phencyclidine Scrn Negative Ur Amphetamines Screen Negative U Methamphetamines Scrn Negative Ur MDMA Scrn (Ecstasy) Negative U Benzodiazepines Scrn Negative Urine Cocaine Screen Negative U Marijuana (THC) Screen Negative Ethyl Alcohol Chlamy pneumoniae PCR Adenovirus (PCR) B.parapertussis DNA PCR Coronavirus OC43 (PCR) Coronavirus HKU1 (PCR) Coronavirus 229E (PCR) Coronavirus NL63 (PCR) Human Metapneumovir PCR Influenza Type A (PCR) Influenza Type B (PCR) Influenza A & B (PCR) M. pneumoniae (PCR) Parainfluenza 1 (PCR) Parainfluenza 2 (PCR) Parainfluenza 3 (PCR) Parainfluenza 4 (PCR) RSV (PCR) Entero/Rhino (PCR) 02/27/18 05:49 WBC RBC Hgb Hct MCV MCH MCHC RDW Plt Count Neut % (Auto) Lymph % (Auto) [place] % (Auto) Eos % (Auto) Baso % (Auto) Neut # (Auto) Lymph # (Auto) [place] # (Auto) Eos # (Auto) Baso # (Auto) PT INR APTT D-Dimer Sodium Potassium Chloride Carbon Dioxide BUN Creatinine Estimated GFR BUN/Creatinine Ratio Glucose Lactate Calcium Magnesium Total Bilirubin AST ALT Alkaline Phosphatase Total Creatine Kinase CK-MB (CK-2) CK-MB (CK-2) Rel Index Troponin I < 0.012 B-Natriuretic Peptide Total Protein Albumin Globulin Albumin/Globulin Ratio Lipase Procalcitonin TSH Urine Color Urine Appearance Urine pH Ur Specific [place] Urine Protein Urine Glucose (UA) Urine Ketones Urine Occult Blood Urine Nitrate Urine Bilirubin Urine Urobilinogen Ur Leukocyte Esterase Urine RBC Urine WBC Urine Bacteria Ur Culture Indicated? Micro UA Comment Urine Opiates Screen Ur Oxycodone Screen Urine Methadone Screen Ur Barbiturates Screen U Tricyclic Antidepress Ur Phencyclidine Scrn Ur Amphetamines Screen U Methamphetamines Scrn Ur MDMA Scrn (Ecstasy) U Benzodiazepines Scrn Urine Cocaine Screen U Marijuana (THC) Screen Ethyl Alcohol Chlamy pneumoniae PCR Adenovirus (PCR) B.parapertussis DNA PCR Coronavirus OC43 (PCR) Coronavirus HKU1 (PCR) Coronavirus 229E (PCR) Coronavirus NL63 (PCR) Human Metapneumovir PCR Influenza Type A (PCR) Influenza Type B (PCR) Influenza A & B (PCR) M. pneumoniae (PCR) Parainfluenza 1 (PCR) Parainfluenza 2 (PCR) Parainfluenza 3 (PCR) Parainfluenza 4 (PCR) RSV (PCR) Entero/Rhino (PCR) Assessment & Plan Plan: Assessment/Plan Narrative: 1. Influenza A -continued cough and tachycardia but afebrile, tachycardia improving -continue Tamiflu 75 mg b.i.d. -Tessalon 100 mg t.i.d., guaifenesin 1200 mg b.i.d. -presented with 2-3 week history of cough with purulence, chest congestion, sinus pressure/drainage, malaise, myalgia, and chills Influenza A/B swab negative. Respiratory viral PCR panel POSITIVE for Influenza A. WBC 8.5, lactate 1.9, PCT 0.05 2. Dehydration Received 2L of IVF in ED. - Continue IVF at 75 ml/hr - I/O monitoring QShift 3. Atypical Chest Pain Likely secondary to chest wall / soft tissue injury of from persistent cough Troponin is WNL x3. EKG revealing of tachycardia, no ischemia noted. RF: HTN, LUIS (uncontrolled), FHx of sudden cardiac -Echo canceled, not needed 4. Hypothyroidism, has not taking in his levothyroxine since January, unable to recall dose of levothyroxine or recall pharmacy last filled - TSH only mildly elevated at 4.88 5. GERD w/ gastritis Complains of dyspepsia. 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 - Protonix 40 mg q.d. ordered 6. LUIS, not controlled, reportedly mild, intolerant of outpatient CPAP therapy - education provided on importance of CPAP therapy and associated cardiac sequela 7. Acute left shoulder pain, history of prior surgery -no redness or swelling on exam, point tender anteriorly, range of motion unaffected -monitor symptom, treat with Tylenol as needed Disposition: Continue influenza A treatment with Tamiflu and IV fluids for dehydration. Likely patient can discharge tomorrow. He has been homeless, living out of car, but will go spend night at [facility]. Also has job interview lined up for Thursday which he may not be able to make but can receive work note. Quality VTE Deep Vein Thrombosis/Pulmonary Embolism Present on Admission: No
[2018-02-27] MEDS: SODIUM CHLORIDE 0.9% 1,000 ML 75 ML IV (12:25)
--- NOTE | 2018-02-27 14:27 | CM.IDA ---
DCP Assessment Note: Pt is a 57 yo admitted w/ Influenza infection. Pt has no PCP, recently moved from [place], [place] in his car, currently homeless. Pt has no medical insurance. Met w/pt this morning, explained SW role. Pt explains that he has has a series of events that have led to his homelessness. Pt had from his gf recently, they sold home and items and pt left [place], [place] to take a job near [place]. 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 He was born and raised in the [facility] [place] and is part [facility] member. This job had not worked out and pt explains he does not have the money for an apt. Pt has stayed at the [facility] and at one of his cousin's homes in [facility]. He is familiar w/resources through [employer] and has accessed the job training support to get another interview, scheduled for Thursday. Pt states I've never been homeless before, this is weird. He admits to having poor diet, he gets food stamps monthly. He showers at his cousin's house. Pt plans on going to the [facility] to sleep after leaving here and asks if this UNDERGROUND CONDUIT INSTALLER knows of any resource for gas voucher? This UNDERGROUND CONDUIT INSTALLER unable to make calls on a Thursday, provided pt w/the [facility] Community Resource Guide. Pt will likely ask [employer] [facility] and local churches for assist as needed until I get to working and can get my own place. Discussed medical insurance ? Pt is planning on going to [facility] to ask if he can be covered there? This UNDERGROUND CONDUIT INSTALLER suggested he sign up for [employer]. Sent email to Judy Moon, doing admit changes today. Encouraged pt to get to the library to sign up for [employer] on their computer and/or ask [facility] [employer] [facility] for assist. Pt seems very resourceful and hoping to get employment soon. Pt stays in his bronma when needed and states it stays pretty warm. UNDERGROUND CONDUIT INSTALLER team following closely in case other questions, needs arise. Addtl resources will be offered if they become available. CHUCKIE Echeverria Discharge Planning/Care Management CM Discharge Assessment Start: 02/27/18 14:23 Freq: Status: Active Protocol: Document 02/27/18 14:23 BUCKY (Rec: 02/27/18 14:27 BUCKY [id number]) Discharge Planning Assessment Assigned Police Shift Commander CHUCKIE Ugarte DPOA/Assigned Designee Name None Advance Directives? No History Provided By Patient Prior Living Arrangements Homeless Household Members none Comment Lives in car Type of transporation used prior to Drives own vehicle admit Independent with ADL's Yes Is patient alert and oriented? Yes Barriers to Discharge No Discharge Plan Homeless Fdc Additional Comment Insurance ? Whiteboard Updated in Patient Room with Yes name and ext. # of Police Shift Commander Review Status In Process
[2018-02-27] MEDS: guaiFENesin ER 600 MG TAB 1200 MG PO (20:09)
[2018-02-28] MEDS: SODIUM CHLORIDE 0.9% 1,000 ML 75 ML IV (01:11)
[2018-02-28 04:00] VITALS: BP 133/83; PULSE 83; RESP 18; TEMP 37.1; O2SAT 95
[2018-02-28 04:51] VITALS: O2SAT 95
[2018-02-28 08:00] VITALS: BP 130/91; PULSE 84; RESP 16; TEMP 37.3; O2SAT 93
[2018-02-28] MEDS: ACETAMINOPHEN 325 MG TABLET 650 MG PO (08:08)
[2018-02-28] MEDS: OSELTAMIVIR 75 MG CAPSULE PO (08:09)
[2018-02-28] MEDS: BENZONATATE 100 MG CAPSULE PO (08:09)
[2018-02-28] MEDS: PANTOPRAZOLE 40 MG TABLET PO (08:09)
[2018-02-28] MEDS: guaiFENesin ER 600 MG TAB 1200 MG PO (08:09)
--- NOTE | 2018-02-28 08:56 | CM.DPC ---
DCP Discharge Home Per MD, pt is medically stable to d/c today with two new medications for Tamiflu and another med that is not urgent to take immediately knowing that pt currently is indigent and homeless without the financial means to afford meds today. SW met bedside with pt and explained role and pt again confirmed that he is homeless but has his large truck and is aware of resources and has been to [employer] and has an interview for another job tomorrow. SW provided him again with the [employer] Resource Guide and the [facility] information to enroll in medical insurance tomorrow to cover his medications and help with other resources. Pt is already on [employer] and SW discussed [employer] and local [employer] for hot meals and pt has his lap top and has been using [employer] for internet access for applying for jobs and finding resources. Pt has distant relatives he hasn't seen in over 20 years that plan to be bedside to visit pt later today that may be able to provide some assist as well. Pt agreeable with d/c today with resources. Plan: Patient to d/c later today and has community resources and plan for applying for medical insurance and completing a job interview tomorrow. No further SW needs at this time. CHUCKIE Schultz
--- NOTE | 2018-02-28 09:04 | PM.DS.1 ---
History of Present Illness Chief complaint: cold or flu symptoms Narrative: The patient is a 57-year-old male of descent who presented to the ED on 02/27/2017 out of concern for chills and flu-like symptoms. Symptom initially noted to 3 weeks ago. Symptom consist of cough with purulence, initially white, and most recently green. There is no increase in phlegm quantity. The cough is frequent, worsened night and when lying down. Developed chills 2 days ago. Associated symptoms include generalized weakness, malaise, muscle ache/cramping, dizziness/lightheadedness (w/ position change), occasional palpitations, and intermittent left anterior chest discomfort. Characterizes chest discomfort is an intermittent dull ache. Denies sensation of tightness or pressure. Patient denies radiation to the back neck jaw or extremities. Patient notes a sore left shoulder with diminished ROM, which he feels is better today. Patient recently relocated from [place] to take a job at [employer]. However, for unknown reasons he was turned down. At present time patient is unemployed, he reports feeling for significant effort under his job search. He notes having limited supply of money. For the past month has been living out of a senior care and or in his car. PMH consists of questionable HTN, LUIS (not on CPAP), hypothyroidism, peptic ulcer disease, and anxiety. In regard to patient's blood pressure, notes that he was trialed on an antihypertensive some time ago, he has taken the medication for 30-60 days, but then was told he does not needed. He was diagnosed with LUIS 18 months ago, by report; however, sensitive to the CPAP mask and for this reason did not continue with the CPAP therapy. Patient reports waking up frequently from a sleep with breathlessness. Patient denies prior history of ASHD, ND, CVA, or thrombosis. On 's has driven from [place], [place] to [place], a [address] his car. Patient's father at age of 59 from sudden cardiac . Known to have hypothyroidism, however has not taken his thyroid medication since January. PMH: HTN? LUIS (not on CPAP), hypothyroidism, GERD, peptic ulcer disease, abdominal hernia, penetrating chest trauma, PRIOR tobacco use PSH: EGD, colonoscopy (2016) w/ polypectomy (pre-cancerous), abdominal hernia repair with mesh, and anxiety FHx: Father ( 59), sudden cardiac ; Mother (), alcoholism. SHx: Currently homeless. Resides at a senior care or out of his car. 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 Recently relocated from [place], [place] Allergy: PCN (hives), age 8 Discharge Providers Date of admission: 02/26/18 21:32 Consults: 02/26/18 22:49 Consult to Dietitian, Adult Routine Comment: Reason For Exam: Homeless, suffers from GERD. Discharge provider: Jaison Miranda MD Discharge Date: 02/28/18 Summary Discharge Diagnosis: 1. Influenza a without pneumonia 2. Acute dehydration 3. Atypical chest pain, noncardiac 4. Obstructive sleep apnea, intolerant of CPAP 5. Acute left shoulder pain, musculoskeletal 6. Hypothyroidism Hospital Course: Patient admitted for influenza a and dehydration. He was treated with IV fluids, Tamiflu, Tessalon Perles and guaifenesin. He had significant sinus tachycardia on presentation which has resolved. He has been afebrile. Patient is homeless and being discharged with plans to stay at [facility] this evening. Status at Discharge Functional status at discharge: independent ambulation Time Spent with Patient Less than 30 minutes Exam Vital Signs (past 8 hours): - 02/28/18 04:00 02/28/18 04:51 02/28/18 08:00 Temperature 98.8 F 99.1 F Pulse Rate 83 84 Respiratory Rate 18 16 Blood Pressure 133/83 130/91 H Pulse Oximetry 95 95 93 Oxygen Delivery Method Room Air Oxygen Flow Rate 0 Objective Labs Result Diagrams: 02/26/18 16:15 02/26/18 16:15 Discharge Plan Discharge Plan Patient Disposition: Home Discharge Med Rec/Prescriptions Prescriptions: New benzonatate [Tessalon Perles] 100 mg capsule 100 mg PO TID PRN (Reason: cough) Qty: 15 RF: 0 oseltamivir [Tamiflu] 75 mg capsule 75 mg PO BID 3 Days Qty: 6 RF: 0 Continue esomeprazole magnesium [Nexium] 20 mg Capsule,Delayed Release(Dr/Ec) 20 mg PO PRN PRN (Reason: Heartburn) RF: 0 Antianxiety Med 1 dose PO PRN PRN (Reason: Anxiety) RF: 0 levothyroxine 1 dose PO DAILY RF: 0 Provider Discharge Instructions Diet: Diet as Tolerated Visit Report/Discharge Packet Instructions: DI for Influenza -- Adult, Oseltamivir Visit Report Forms: Stroke Signs & Symptoms Discharge Data Attending Provider: Frannie Gould Admit Date/Time: 02/26/18 21:32 Quality VTE Deep Vein Thrombosis/Pulmonary Embolism Present on Admission: No
--- NOTE | 2018-02-28 09:08 | P.DS_ITS ---
History of Present Illness Chief complaint: cold or flu symptoms Narrative: The patient is a 57-year-old male of descent who presented to the ED on 02/27/2017 out of concern for chills and flu-like symptoms. Symptom initially noted to 3 weeks ago. Symptom consist of cough with purulence, initially white, and most recently green. There is no increase in phlegm quantity. The cough is frequent, worsened night and when lying down. Developed chills 2 days ago. Associated symptoms include generalized weakness , malaise, muscle ache/cramping, dizziness/lightheadedness (w/ position change) , occasional palpitations, and intermittent left anterior chest discomfort. Characterizes chest discomfort is an intermittent dull ache. Denies sensation of tightness or pressure. Patient denies radiation to the back neck jaw or extremities. Patient notes a sore left shoulder with diminished ROM, which he feels is better today. Patient recently relocated from [place] to take a job at [employer]. However , for unknown reasons he was turned down. At present time patient is unemployed , he reports feeling for significant effort under his job search. He notes having limited supply of money. For the past month has been living out of a half-way and or in his car. PMH consists of questionable HTN, LUIS (not on CPAP) , hypothyroidism, peptic ulcer disease, and anxiety. In regard to patient's blood pressure, notes that he was trialed on an antihypertensive some time ago, he has taken the medication for 30-60 days, but then was told he does not needed. He was diagnosed with LUIS 18 months ago, by report; however, sensitive to the CPAP mask and for this reason did not continue with the CPAP therapy. Patient reports waking up frequently from a sleep with breathlessness. Patient denies prior history of ASHD, [place], CVA, or thrombosis. On 's has driven from [place], [place] to [place], a [address] his car. Patient's father at age of 59 from sudden cardiac . Known to have hypothyroidism, however has not taken his thyroid medication since January. PMH: HTN? LUIS (not on CPAP), hypothyroidism, GERD, peptic ulcer disease, abdominal hernia, penetrating chest trauma, PRIOR tobacco use PSH: EGD, colonoscopy (2016) w/ polypectomy (pre-cancerous), abdominal hernia repair with mesh, and anxiety FHx: Father ( 59), sudden cardiac ; Mother (), alcoholism. SHx: Currently homeless. Resides at a half-way or out of his car. 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 Recently relocated from [place], [place] Allergy: PCN (hives), age 8 Discharge Providers Date of admission: 02/26/18 21:32 Consults: 02/26/18 22:49 Consult to Dietitian, Adult Routine Comment: Reason For Exam: Homeless, suffers from GERD. Discharge provider: Jaison Miranda MD Discharge Date: 02/28/18 Summary Discharge Diagnosis: 1. Influenza a without pneumonia 2. Acute dehydration 3. Atypical chest pain, noncardiac 4. Obstructive sleep apnea, intolerant of CPAP 5. Acute left shoulder pain, musculoskeletal 6. Hypothyroidism Hospital Course: Patient admitted for influenza a and dehydration. He was treated with IV fluids, Tamiflu, Tessalon Perles and guaifenesin. He had significant sinus tachycardia on presentation which has resolved. He has been afebrile. Patient is homeless and being discharged with plans to stay at [facility] this evening. Status at Discharge Functional status at discharge: independent ambulation Time Spent with Patient Less than 30 minutes Exam Vital Signs (past 8 hours): - 02/28/18 04:00 02/28/18 04:51 02/28/18 08:00 Temperature 98.8 F 99.1 F Pulse Rate 83 84 Respiratory Rate 18 16 Blood Pressure 133/83 130/91 H Pulse Oximetry 95 95 93 Oxygen Delivery Method Room Air Oxygen Flow Rate 0 Objective Labs Result Diagrams: 02/26/18 16:15 02/26/18 16:15 Discharge Plan Discharge Plan Patient Disposition: Home Discharge Med Rec/Prescriptions Prescriptions: New benzonatate [Tessalon Perles] 100 mg capsule 100 mg PO TID PRN (Reason: cough) Qty: 15 RF: 0 oseltamivir [Tamiflu] 75 mg capsule 75 mg PO BID 3 Days Qty: 6 RF: 0 Continue esomeprazole magnesium [Nexium] 20 mg Capsule,Delayed Release(Dr/Ec) 20 mg PO PRN PRN (Reason: Heartburn) RF: 0 Antianxiety Med 1 dose PO PRN PRN (Reason: Anxiety) RF: 0 levothyroxine 1 dose PO DAILY RF: 0 Provider Discharge Instructions Diet: Diet as Tolerated Visit Report/Discharge Packet Instructions: DI for Influenza -- Adult, Oseltamivir Visit Report Forms: Stroke Signs & Symptoms Discharge Data Attending Provider: Frannie Gould Admit Date/Time: 02/26/18 21:32 Quality VTE Deep Vein Thrombosis/Pulmonary Embolism Present on Admission: No
[2018-02-28] MEDS: HEPARIN 5,000 UNIT/ML VIAL 5000 UNIT SUBCUT (09:13)
[2018-02-28 09:23] VITALS: O2SAT 97
--- NOTE | 2018-02-28 10:30 | PC.NURSE ---
Addendum entered by Vanessa Sarkar R.N. 02/28/18 14:39: DC - instructions reviewed and scripts provided, pt dressed, clothing, shoes, glasses, cell phone and can technician gathered, purchasing analyst escorted via wc to pt own vehicle. Original Note: AM NOTE - pt is alert, congested, dry cough at times, states he is feeling better, bs dim, ra 97%, enc freq use flutter valve.
== END 2018-02-28 14:10 | disposition home or self-care (01) | DRG 310 ==
LOC: ED 21:28 → AC 21:34
PROVIDERS: Emergency Medicine; Admitting Provider Nurse Practitioner Gerontology; Emergency Provider Nurse Practitioner Family; Visit Provider Nurse Practitioner Gerontology
DX: R00.0 Tachycardia, unspecified (principal); J10.1 Influenza due to other identified influenza virus with other respiratory manifestations; E86.0 Dehydration; Z59.0 Homelessness; K29.70 Gastritis, unspecified, without bleeding; R07.89 Other chest pain; I10 Essential (primary) hypertension; E03.9 Hypothyroidism, unspecified; Z87.891 Personal history of nicotine dependence; G47.33 Obstructive sleep apnea (adult) (pediatric)
CPT/HCPCS: 36415; 36591; 71045; 71046; 80053; 80305; 80320; 81001; 81003; 82550; 83605; 83690; 83735; 83880; 84145; 84443; 84484; 85025; 85379; 85610; 85730; 87040; 87400; 87633; 93005; 94667; 96361; 96374; 99284; 99285; J1644; J1885

== ENCOUNTER → 2018-05-13 15:39 | Outpatient (CLI) | payer OTHER, SELFPAY ==
[2018-02-26 22:30] VITALS: BMI 24.9
--- NOTE | 2018-05-13 | DI.US.S_ITS ---
PROCEDURE: US ABDOMEN COMPLETE INDICATIONS: BILIARY COLIC TECHNIQUE: Real-time scanning was performed of the abdominal and retroperitoneal organs, with image documentation. COMPARISON: None. FINDINGS: Liver: The liver demonstrates normal size. Within the right liver, there is a complicated septated cyst versus a collection of cysts, which measures 2.1 x 2.1 x 1.5 cm when measured together. The liver overall demonstrates increased echogenicity. Gallbladder: No findings of gallstones or sludge are seen. The gallbladder wall is not thickened, measuring 3 mm or less. No specific pericholecystic fluid is seen. The sonographic Sanchez sign is negative. Biliary ducts: Intrahepatic bile ducts are non-dilated. Extrahepatic bile duct caliber measures 6 mm. Normal is 6-7 mm or less in diameter, or 10 mm or less post-cholecystectomy. Pancreas: Visualized portions of the pancreas are sonographically normal. Spleen: Spleen is normal in size and homogeneous in echotexture. Kidneys: Kidneys are normal in size and echotexture. Right kidney measures 9.3 cm long; left kidney measures 10.2 cm long. No hydronephrosis or nephrolithiasis. No solid masses. The renal cortex measures within normal limits for thickness. Aorta: Visualized aorta is normal in caliber at less than 3 cm. Iliacs: Not seen, obscured by overlying bowel gas. IVC: Intrahepatic inferior vena cava is patent. Miscellaneous: No free abdominal fluid. IMPRESSION: A there is a septated cyst versus a cluster of immediately adjacent cysts seen within the right liver. This is felt most likely be benign. In this patient with a family history of liver cancer, please consider a dedicated liver MRI for further evaluation, however. The liver demonstrates increased echogenicity. This finding is nonspecific, yet it is most commonly attributed to fatty infiltration. Dictated by: Jesus Caputo M.D. on 05/13/2018 at 16:53 Approved by: Jesus Caputo M.D. on 05/13/2018 at 16:56
== END ==
PROVIDERS: Visit Provider Family Medicine
DX: K80.50 Calculus of bile duct without cholangitis or cholecystitis without obstruction (principal); K76.89 Other specified diseases of liver; Z80.8 Family history of malignant neoplasm of other organs or systems
CPT/HCPCS: 76700

== ENCOUNTER → 2018-05-26 13:31 | Outpatient (CLI) | payer OTHER, SELFPAY ==
[2018-02-26 22:30] VITALS: BMI 24.9
--- NOTE | 2018-05-26 13:33 | DI.MRI.S_ITS ---
PROCEDURE: MR ABDOMEN WO/W CON INDICATIONS: ABNORMAL FINDING ON LIVER TECHNIQUE: Coronal HASTE, axial 2D FLASH in- and [id number]; axial breath-hold T2 FSE. Dynamic axial VIBE during the administration of contrast; post-contrast coronal VIBE or 2D FLASH with fat saturation from the hepatic dome to the iliac crests. Optional diffusion weighted imaging and ADC may be performed. COMPARISON: [facility], US, US ABDOMEN COMPLETE, 05/13/2018, 16:19. FINDINGS: Image quality: Excellent. Lung bases: No basal pleural effusions. Heart size is normal. Solid organs: Liver is normal in size and enhancement, and a small cluster of cysts in the right anterior hepatic segment is again seen, equivalent to that present during ultrasound scanning 05/13/18, and no hepatic mass lesions suggestive of solid mass is present. Gallbladder appears normal. Biliary system is non dilated. Pancreas is normal in morphology. Spleen is normal in size and enhancement. No adrenal nodules. Both kidneys demonstrate normal size and enhancement, without hydronephrosis. Hepatic steatosis appears present given the reduction of signal intensity on out of phase gradient T1 imaging. This also was seen during ultrasound scanning. Nodes and vessels: No retroperitoneal or mesenteric adenopathy by size criteria. Aorta and inferior vena cava are normal in size. Bowel and peritoneum: Unenhanced bowel loops are normal in caliber. No free fluid. Bones and soft tissues: No ventral hernias. Bone marrow is normal in overall signal. IMPRESSION: Hepatic steatosis, also seen prominently during ultrasound scanning earlier this month. Clinical correlation for etiology of fatty infiltration throughout the liver is recommended to determine source of this abnormality if possible. Several clustered cysts simple in character noted at the right anterior hepatic segment as was also seen with ultrasound. These appear benign in origin, and require no followup. Dictated by: Dion Vo M.D. on 05/26/2018 at 15:12 Approved by: Dion Vo M.D. on 05/26/2018 at 15:16
== END ==
PROVIDERS: Visit Provider Family Medicine
DX: R93.2 Abnormal findings on diagnostic imaging of liver and biliary tract (principal); K76.0 Fatty (change of) liver, not elsewhere classified; K76.89 Other specified diseases of liver
CPT/HCPCS: 74183; A9579

== ENCOUNTER 2018-05-30 12:29 | Emergency (ER) | payer OTHER, SELFPAY ==
[2018-02-26 22:30] VITALS: BMI 24.9
[2018-05-30 12:47] VITALS: BP 138/84; PULSE 62; RESP 18; TEMP 36.9; O2SAT 98; BMI 25.6
--- NOTE | 2018-05-30 13:21 | ED.WEAKNESS ---
HPI - Weakness General Chief complaint: Weakness Stated complaint: ABD PAIN,WEAK,COUGH Time Seen by Provider: 05/30/18 13:20 Source: patient, RN notes reviewed and old records reviewed Mode of arrival: ambulatory Limitations: no limitations History of Present Illness HPI Narrative: This is a 57-year-old male comes to the emergency department with complaint of abdominal pain. Patient states sort of lower abdomen. It has been on off for a week sometimes even longer. Patient states when he gets up and sits up in a chair tends to be more uncomfortable. When he is resting it is little bit better. Patient states sort of lower abdomen. He does get colonoscopies every 3 years is due for his 3rd 1. He has had polyps in the past 1 was pre cancerous. He also was having recent evaluation in May and had a cyst noted on his liver, had MRI and was found to have simple cysts which he was told about on Thursday and told that it was not something that he needed to worry about or require follow-up. Patient denies any fevers, no chills. No nausea and no vomiting. No issues with diarrhea, constipation. No black or bloody stools. No urinary issues. He has had cough which is nonproductive. He denies any shortness of breath or chest pain. he has a complaint of generalized weakness particularly when he gets up 1st thing in the morning or when he gets out of bed in the middle of the night. He states he will feel little lightheaded but does not have any passing out. Otherwise he has not been weak. Related Data Home Medications Medication Instructions Recorded Confirmed Antianxiety Med 1 dose PO PRN PRN 02/26/18 02/26/18 esomeprazole magnesium [Nexium] 20 mg PO PRN PRN 02/26/18 02/26/18 levothyroxine 1 dose PO DAILY 02/26/18 02/26/18 Previous Rx's Medication Instructions Recorded benzonatate [Tessalon Perles] 100 mg PO TID PRN #15 cap 02/28/18 ciprofloxacin HCl 500 mg PO BID #20 tab 05/30/18 metronidazole [Flagyl] 500 mg PO TID #30 tab 05/30/18 Allergies Allergy/AdvReac Type Severity Reaction Status Date / Time Penicillins Allergy Verified 05/30/18 12:50 Review of Systems Review of Systems ROS Unobtainable: All systems reviewed & are unremarkable except as noted in HPI and below Constitutional Denies chills, Denies fever(s), Denies lethargy and Reports weakness Cardiovascular Denies chest pain, Denies diaphoresis, Denies syncope, Denies irregular heart rhythm, Reports lightheadedness, Denies palpitations, Denies dyspnea, Denies dyspnea on exertion and Denies orthopnea Respiratory Reports chest congestion, Reports cough, Denies excessive phlegm production, Denies dyspnea, Denies dyspnea on exertion, Denies stridor and Denies wheezing Gastrointestinal Gastrointestinal: Reports abdominal pain (Lower abdomen), Denies melena, Denies hematochezia, Denies change in bowel habits, Denies constipation, Denies diarrhea, Denies nausea and Denies vomiting Genitourinary Denies hematuria, Denies difficulty urinating, Denies flank pain, Denies urinary hesitancy, Denies urinary incontinence and Denies urinary urgency Musculoskeletal Denies back pain and Denies muscle weakness Integumentary/Breasts Denies rash Neurologic Denies syncope and Reports weakness Endocrine Denies palpitations Allergic/Immunologic Denies wheezing [facility] Medical History (Updated 05/30/18 @ 15:39 by Paula Hodge DO) Hypothyroid (Chronic) Social History household members: none Smoking Status: Former smoker alcohol intake: current Social History household members: none Smoking Status: Former smoker alcohol intake: current Exam Narrative Exam Narrative: GENERAL: Alert and oriented x three, well-nourished, well-appearing male in mild distress. HEENT: Head normocephalic, atraumatic, EOMI, pupils reactive, face symmetric, moist mucous membranes NECK: Supple, full range of motion CARDIOVASCULAR: Regular rate and rhythm without murmurs, rubs or gallops. RESPIRATORY: Breath sounds equal bilaterally, no wheezes rales or rhonchi. ABDOMEN: Soft, very mild generalized abdominal tenderness. Normoactive bowel sounds all 4 quadrants. No guarding or rebound, rigidity, no mass : No CVA tenderness EXTREMITIES: Normal range of motion, no clubbing or edema. Neurovascularly intact NEUROLOGICAL: Cranial nerves II through XII grossly intact. Moving all extremities SKIN: Warm, dry, no petechiae, no rashes or lesions. Initial Vital Signs Initial Vital Signs: Vital Signs Temperature 98.4 F 05/30/18 12:47 Pulse Rate 62 05/30/18 12:47 Respiratory Rate 18 05/30/18 12:47 Blood Pressure 138/84 05/30/18 12:47 Pulse Oximetry 98 05/30/18 12:47 Course Orders Ordered: ED Orders 05/30/18 13:42 XR chest 1V Stat 05/30/18 13:44 CT abdomen pelvis w con Stat 05/30/18 14:10 Complete Blood Count AUTO DIFF Stat Comprehensive Metabolic Panel Stat Lipase Stat Discontinued Medications Sodium Chloride (Normal Saline 0.9%) 1,000 mls @ 1,000 mls/hr IV BOLUS ONE Stop: 05/30/18 14:41 Last Infusion: 05/30/18 15:52 Dose: 0 mls/hr Infusion: 05/30/18 15:20 Dose: 1,000 mls/hr Infusion: 05/30/18 14:30 Dose: 0 mls/hr Admin: 05/30/18 14:18 Dose: 1,000 mls/hr Ketorolac Tromethamine (Toradol) 30 mg IV NOW ONE Stop: 05/30/18 14:41 Last Admin: 05/30/18 14:43 Dose: 30 mg Vital Signs - 8 hr 05/30/18 12:47 05/30/18 14:08 05/30/18 15:53 Temperature 98.4 F Pulse Rate 62 54 L 58 L Respiratory Rate 18 16 16 Blood Pressure 138/84 121/74 Blood Pressure [Right Arm] 123/77 Pulse Oximetry 98 100 99 MDM - Weakness Lab Data Attestation: I reviewed the patient's lab results. Result diagrams: 05/30/18 14:10 05/30/18 14:10 Lab Results 05/30/18 05/30/18 Range/Units 14:10 14:10 WBC 9.9 (4.5-11.0) X10^3/uL RBC 5.39 (4.5-5.9) X10^6/uL Hgb 14.4 (13.5-17.5) g/dL Hct 43.4 (41-53) % MCV 80.4 (80-100) fL MCH 26.7 (26-34) PG MCHC 33.2 (30-36) % RDW 14.3 (11.6-14.8) % Plt Count 228 (150-400) X10^3/uL Neut % (Auto) 68.3 (50-75) % Lymph % (Auto) 17.5 L (25-40) % [place] % (Auto) 8.8 (3-14) % Eos % (Auto) 4.6 H (2-4) % Baso % (Auto) 0.8 (0-2) % Neut # (Auto) 6700 (1832-9620) /uL Lymph # (Auto) 1700 (0516-0535) /uL [place] # (Auto) 900 (0-900) /uL Eos # (Auto) 500 H (0-450) /uL Baso # (Auto) 100 (0-100) /uL Sodium 137 (137-145) mmol/L Potassium 3.8 (3.4-5.1) mmol/L Chloride 104 (98-107) mmol/L Carbon Dioxide 23 (22-32) mmol/L BUN 10 (9-20) mg/dL Creatinine 0.70 (0.66-1.25) mg/dL Estimated GFR > 60.0 (>60) mL/min BUN/Creatinine Ratio 14.3 (6-22) Glucose 123 H (70-100) mg/dL Calcium 8.9 (8.4-10.2) mg/dL Total Bilirubin 0.5 (0.2-1.3) mg/dL AST 24 (17-59) IU/L ALT 34 (21-72) IU/L Alkaline Phosphatase 87 (38-126) U/L Total Protein 7.2 (6.3-8.2) g/dL Albumin 4.1 (3.5-5.0) g/dL Globulin 3.1 (1.7-4.1) g/dL Albumin/Globulin Ratio 1.3 (1.0-2.8) Lipase 130 (23-300) U/L Urine Dip Bedside Urine Glucose Negative Bedside Urine Bilirubin - Negative Bedside Urine Ketone - Negative Urine Specific [place] 1.015 Bedside Urine Occult Blood - Negative Bedside Urine pH 6.0 Bedside Urine Protein - Negative Bedside Urine Urobilinogen - Negative Bedside Urine Nitrite - Negative Bedside Urine Leukocytes - Negative Esterase Imaging Data MRI abdomen: Radiologist's impression: Naveed Mayen M [address] [address] Magnetic Resonance Report Signed Patient: Naveed Mayen DMR#: [id number] : 9Acct:[id number] Age/Sex: 57 / MDate of Service: 05/26/18 Loc: MRI Accession Number: [id number] Procedure: MR abdomen wo/w con Ordering Provider: Damaris Kothari M.D. PROCEDURE: MR ABDOMEN WO/W CON INDICATIONS: ABNORMAL FINDING ON LIVER TECHNIQUE: Coronal HASTE, axial 2D FLASH in- and [id number]; axial breath-hold T2 FSE. Dynamic axial VIBE during the administration of contrast; post-contrast coronal VIBE or 2D FLASH with fat saturation from the hepatic dome to the iliac crests. Optional diffusion weighted imaging and ADC may be performed. COMPARISON: [facility], US, US ABDOMEN COMPLETE, 05/13/2018, 16:19. FINDINGS: Image quality: Excellent. Lung bases: No basal pleural effusions. Heart size is normal. Solid organs: Liver is normal in size and enhancement, and a small cluster of cysts in the right anterior hepatic segment is again seen, equivalent to that present during ultrasound scanning 05/13/18, and no hepatic mass lesions suggestive of solid mass is present. Gallbladder appears normal. Biliary system is non dilated. Pancreas is normal in morphology. Spleen is normal in size and enhancement. No adrenal nodules. Both kidneys demonstrate normal size and enhancement, without hydronephrosis. Hepatic steatosis appears present given the reduction of signal intensity on out of phase gradient T1 imaging. This also was seen during ultrasound scanning. Nodes and vessels: No retroperitoneal or mesenteric adenopathy by size criteria. Aorta and inferior vena cava are normal in size. Bowel and peritoneum: Unenhanced bowel loops are normal in caliber. No free fluid. Bones and soft tissues: No ventral hernias. Bone marrow is normal in overall signal. IMPRESSION: Hepatic steatosis, also seen prominently during ultrasound scanning earlier this month. Clinical correlation for etiology of fatty infiltration throughout the liver is recommended to determine source of this abnormality if possible. Several clustered cysts simple in character noted at the right anterior hepatic segment as was also seen with ultrasound. These appear benign in origin, and require no followup. Dictated by: Dion Vo M.D. on 05/26/2018 at 15:12 Approved by: Dion Vo M.D. on 05/26/2018 at 15:16 Chest x-ray: Radiologist's impression: Naveed Mayen 57 M [address] [address] XRay Report Signed Patient: Naveed Mayen [facility]#: [id number] : 9At:[id number] Age/Sex: 57 / MDate of Service: 05/30/18 Loc: ED Accession Number: [id number] Procedure: XR chest 1V Ordering Provider: Paula Hodge D.O. PROCEDURE: XR CHEST 1V INDICATIONS: cough TECHNIQUE: One view of the chest was acquired. COMPARISON: [facility], , XR CHEST 2V, 02/27/2018, 7:46. FINDINGS: Surgical changes and devices: None. Lungs and pleura: Lungs are clear. No pleural effusions or pneumothorax. Mediastinum: Mediastinal contours appear normal. Heart size is normal. Bones and chest wall: No suspicious bony lesions. Overlying soft tissues appear unremarkable. IMPRESSION: No evidence acute pulmonary process. Dictated by: Nabil Hamm M.D. on 05/30/2018 at 15:46 Approved by: Nabil Hamm M.D. on 05/30/2018 at 15:46 CT scan - abdomen: Radiologist's impression: [address] [address] [address] Scan Report Signed Patient: Naveed Mayen [facility]#: [id number] : 9At:[id number] Age/Sex: 57 / MDate of Service: 05/30/18 Loc: ED Accession Number: [id number] Procedure: CT abdomen pelvis w con Ordering Provider: Paula Hodge D.O. PROCEDURE: CT ABDOMEN PELVIS W CON INDICATIONS: lower abd pain, intermittent but worsening x 1 week. TECHNIQUE: After the administration of intravenous contrast, 5 mm thick sections acquired from the diaphragm to the symphysis. 5 mm coronal and sagittal reformats were acquired. For radiation dose reduction, the following was used: automated exposure control, adjustment of mA and/or kV according to patient size. COMPARISON: None. FINDINGS: Image quality: Excellent. ABDOMEN: Lung bases: Lung bases are clear. Heart size is normal. Solid organs: There is a lobulated right lobe liver cyst. The liver is otherwise normal in size and enhancement. Gallbladder is unremarkable. Biliary system is non dilated. Pancreas enhances normally. Spleen is normal in size and enhancement. No adrenal nodules. Kidneys demonstrate normal size and enhancement, without hydronephrosis. Peritoneum and bowel: Bowel loops demonstrate normal wall thickness and caliber. No free fluid or air. An air-filled appendix is identified. There is extensive sigmoid diverticulosis. There is minimal stranding in the adjacent fat suggesting possible acute pancreatitis. The Nodes and vessels: No retroperitoneal or mesenteric adenopathy by size criteria. Aorta and inferior vena cava are normal in size. Miscellaneous: No ventral hernias. PELVIS: Genitourinary: A large prostate. Mild bladder wall thickening. Miscellaneous: Small left inguinal hernia containing fat. Bones: No suspicious bony lesions. No vertebral body compression fractures. IMPRESSION: 1. Extensive diverticulosis in the sigmoid with probable mild changes of sigmoid diverticulitis. 2. Small left inguinal hernia containing fat. 3. Enlarged prostate, bladder wall thickening. Dictated by: Nabil Hamm M.D. on 05/30/2018 at 15:29 Approved by: Nabil Hamm M.D. on 05/30/2018 at 15:33 [facility] Narrative Medical decision making narrative: Patient's lab work shows slight elevation in glucose but otherwise normal labs. Chest x-ray shows no acute process. CT shows possibly a diverticulitis, some he does have diverticulosis. They do see changes to the liver still. As patient has been having lower abdominal pain and with his description of symptoms and potential for diverticulitis on his CT I will go ahead and treat with Cipro and Flagyl. Patient has a penicillin allergy so not given Augmentin. We discussed if his symptoms are rapidly worsening to return. Was also given an option for referral to gastroenterology as he was concerned about the liver cysts although we discussed his MRI again and he is supposed to have regular colonoscopy. Patient was comfortable with this plan. He is feeling a little bit better after Toradol. Discharge Plan Departure Patient Disposition: Home Clinical Impression: Diverticulitis Discharge Date/Time: 05/30/18 15:53 Interventions: ED Discharge Assessment Last Done: 05/30/18 15:53 Instructions: DI for Diverticulitis Activity Restrictions/Additional Instructions: Follow up with your primary care physician in the next 3-5 days for recheck if not improving. You may continue home medications as prescribed. Take antibiotics as prescribed until gone. Return to the ER for fevers greater than 100.4F, persistent symptoms, worsening abdominal pain, pain now radiating to her back, black or bloody stools, persistent vomiting, passing out or other new or concerning symptoms. Prescriptions: New metronidazole [Flagyl] 500 mg tablet 500 mg PO TID Qty: 30 RF: 0 ciprofloxacin HCl 500 mg tablet 500 mg PO BID Qty: 20 RF: 0 No Action esomeprazole magnesium [Nexium] 20 mg Capsule,Delayed Release(Dr/Ec) 20 mg PO PRN PRN (Reason: Heartburn) RF: 0 Antianxiety Med 1 dose PO PRN PRN (Reason: Anxiety) RF: 0 levothyroxine 1 dose PO DAILY RF: 0 benzonatate [Tessalon Perles] 100 mg capsule 100 mg PO TID PRN (Reason: cough) Qty: 15 RF: 0 Referrals: Rhonda Gomez MD [Non-Staff] - Damaris Kothari MD [Primary Care Provider] -
--- NOTE | 2018-05-30 13:25 | ED_ITS ---
HPI - Weakness General Chief complaint: Weakness Stated complaint: ABD PAIN,WEAK,COUGH Time Seen by Provider: 05/30/18 13:20 Source: patient, RN notes reviewed and old records reviewed Mode of arrival: ambulatory Limitations: no limitations History of Present Illness HPI Narrative: This is a 57-year-old male comes to the emergency department with complaint of abdominal pain. Patient states sort of lower abdomen. It has been on off for a week sometimes even longer. Patient states when he gets up and sits up in a chair tends to be more uncomfortable. When he is resting it is little bit better. Patient states sort of lower abdomen. He does get colonoscopies every 3 years is due for his 3rd 1. He has had polyps in the past 1 was pre cancerous. He also was having recent evaluation in May and had a cyst noted on his liver, had MRI and was found to have simple cysts which he was told about on Thursday and told that it was not something that he needed to worry about or require follow-up. Patient denies any fevers, no chills. No nausea and no vomiting. No issues with diarrhea, constipation. No black or bloody stools. No urinary issues. He has had cough which is nonproductive. He denies any shortness of breath or chest pain. he has a complaint of generalized weakness particularly when he gets up 1st thing in the morning or when he gets out of bed in the middle of the night. He states he will feel little lightheaded but does not have any passing out. Otherwise he has not been weak. Related Data Home Medications Medication Instructions Recorded Confirmed Antianxiety Med 1 dose PO PRN PRN 02/26/18 02/26/18 esomeprazole magnesium [Nexium] 20 mg PO PRN PRN 02/26/18 02/26/18 levothyroxine 1 dose PO DAILY 02/26/18 02/26/18 Previous Rx's Medication Instructions Recorded benzonatate [Tessalon Perles] 100 mg PO TID PRN #15 cap 02/28/18 ciprofloxacin HCl 500 mg PO BID #20 tab 05/30/18 metronidazole [Flagyl] 500 mg PO TID #30 tab 05/30/18 Allergies Allergy/AdvReac Type Severity Reaction Status Date / Time Penicillins Allergy Verified 05/30/18 12:50 Review of Systems Review of Systems ROS Unobtainable: All systems reviewed & are unremarkable except as noted in HPI and below Constitutional Denies chills, Denies fever(s), Denies lethargy and Reports weakness Cardiovascular Denies chest pain, Denies diaphoresis, Denies syncope, Denies irregular heart rhythm, Reports lightheadedness, Denies palpitations, Denies dyspnea, Denies dyspnea on exertion and Denies orthopnea Respiratory Reports chest congestion, Reports cough, Denies excessive phlegm production, Denies dyspnea, Denies dyspnea on exertion, Denies stridor and Denies wheezing Gastrointestinal Gastrointestinal: Reports abdominal pain (Lower abdomen), Denies melena, Denies hematochezia, Denies change in bowel habits, Denies constipation, Denies diarrhea, Denies nausea and Denies vomiting Genitourinary Denies hematuria, Denies difficulty urinating, Denies flank pain, Denies urinary hesitancy, Denies urinary incontinence and Denies urinary urgency Musculoskeletal Denies back pain and Denies muscle weakness Integumentary/Breasts Denies rash Neurologic Denies syncope and Reports weakness Endocrine Denies palpitations Allergic/Immunologic Denies wheezing PENDING SALE TO [facility] Medical History (Updated 05/30/18 @ 15:39 by Paula Hodge DO) Hypothyroid (Chronic) Social History household members: none Smoking Status: Former smoker alcohol intake: current Social History household members: none Smoking Status: Former smoker alcohol intake: current Exam Narrative Exam Narrative: GENERAL: Alert and oriented x three, well-nourished, well- appearing male in mild distress. HEENT: Head normocephalic, atraumatic, EOMI, pupils reactive, face symmetric, moist mucous membranes NECK: Supple, full range of motion CARDIOVASCULAR: Regular rate and rhythm without murmurs, rubs or gallops. RESPIRATORY: Breath sounds equal bilaterally, no wheezes rales or rhonchi. ABDOMEN: Soft, very mild generalized abdominal tenderness. Normoactive bowel sounds all 4 quadrants. No guarding or rebound, rigidity, no mass : No CVA tenderness EXTREMITIES: Normal range of motion, no clubbing or edema. Neurovascularly int act NEUROLOGICAL: Cranial nerves II through XII grossly intact. Moving all extremities SKIN: Warm, dry, no petechiae, no rashes or lesions. Initial Vital Signs Initial Vital Signs: Vital Signs Temperature 98.4 F 05/30/18 12:47 Pulse Rate 62 05/30/18 12:47 Respiratory Rate 18 05/30/18 12:47 Blood Pressure 138/84 05/30/18 12:47 Pulse Oximetry 98 05/30/18 12:47 Course Orders Ordered: ED Orders 05/30/18 13:42 XR chest 1V Stat 05/30/18 13:44 CT abdomen pelvis w con Stat 05/30/18 14:10 Complete Blood Count AUTO DIFF Stat Comprehensive Metabolic Panel Stat Lipase Stat Discontinued Medications Sodium Chloride (Normal Saline 0.9%) 1,000 mls @ 1,000 mls/hr IV BOLUS ONE Stop: 05/30/18 14:41 Last Infusion: 05/30/18 15:52 Dose: 0 mls/hr Infusion: 05/30/18 15:20 Dose: 1,000 mls/hr Infusion: 05/30/18 14:30 Dose: 0 mls/hr Admin: 05/30/18 14:18 Dose: 1,000 mls/hr Ketorolac Tromethamine (Toradol) 30 mg IV NOW ONE Stop: 05/30/18 14:41 Last Admin: 05/30/18 14:43 Dose: 30 mg Vital Signs - 8 hr 05/30/18 12:47 05/30/18 14:08 05/30/18 15:53 Temperature 98.4 F Pulse Rate 62 54 L 58 L Respiratory Rate 18 16 16 Blood Pressure 138/84 121/74 Blood Pressure [Right Arm] 123/77 Pulse Oximetry 98 100 99 MDM - Weakness Lab Data Attestation: I reviewed the patient's lab results. Result diagrams: 05/30/18 14:10 05/30/18 14:10 Lab Results 05/30/18 05/30/18 Range/Units 14:10 14:10 WBC 9.9 (4.5-11.0) X10^3/uL RBC 5.39 (4.5-5.9) X10^6/uL Hgb 14.4 (13.5-17.5) g/dL Hct 43.4 (41-53) % MCV 80.4 (80-100) fL MCH 26.7 (26-34) PG MCHC 33.2 (30-36) % RDW 14.3 (11.6-14.8) % Plt Count 228 (150-400) X10^3/uL Neut % (Auto) 68.3 (50-75) % Lymph % (Auto) 17.5 L (25-40) % Cottle % (Auto) 8.8 (3-14) % Eos % (Auto) 4.6 H (2-4) % Baso % (Auto) 0.8 (0-2) % Neut # (Auto) 6700 (4718-3850) /uL Lymph # (Auto) 1700 (7145-4806) /uL Cottle # (Auto) 900 (0-900) /uL Eos # (Auto) 500 H (0-450) /uL Baso # (Auto) 100 (0-100) /uL Sodium 137 (137-145) mmol/L Potassium 3.8 (3.4-5.1) mmol/L Chloride 104 (98-107) mmol/L Carbon Dioxide 23 (22-32) mmol/L BUN 10 (9-20) mg/dL Creatinine 0.70 (0.66-1.25) mg/dL Estimated GFR > 60.0 (>60) mL/min BUN/Creatinine Ratio 14.3 (6-22) Glucose 123 H (70-100) mg/dL Calcium 8.9 (8.4-10.2) mg/dL Total Bilirubin 0.5 (0.2-1.3) mg/dL AST 24 (17-59) IU/L ALT 34 (21-72) IU/L Alkaline Phosphatase 87 (38-126) U/L Total Protein 7.2 (6.3-8.2) g/dL Albumin 4.1 (3.5-5.0) g/dL Globulin 3.1 (1.7-4.1) g/dL Albumin/Globulin Ratio 1.3 (1.0-2.8) Lipase 130 (23-300) U/L Urine Dip Bedside Urine Glucose Negative Bedside Urine Bilirubin - Negative Bedside Urine Ketone - Negative Urine Specific Sturgeon 1.015 Bedside Urine Occult Blood - Negative Bedside Urine pH 6.0 Bedside Urine Protein - Negative Bedside Urine Urobilinogen - Negative Bedside Urine Nitrite - Negative Bedside Urine Leukocytes - Negative Esterase Imaging Data MRI abdomen: Radiologist's impression: Naveed Mayen 57 M [address] [address] Magnetic Resonance Report Signed Patient: Naveed Mayen [facility]#: [id number] : 9Acct:[id number] Age/Sex: 57 / MDate of Service: 05/26/18 Loc: MRI Accession Number: [id number] Procedure: MR abdomen wo/w con Ordering Provider: Damaris Kothari M.D. PROCEDURE: MR ABDOMEN WO/W CON INDICATIONS: ABNORMAL FINDING ON LIVER TECHNIQUE: Coronal HASTE, axial 2D FLASH in- and [id number]; axial breath-hold T2 FSE. Dynamic axial VIBE during the administration of contrast; post-contrast coronal VIBE or 2D FLASH with fat saturation from the hepatic dome to the iliac crests. Optional diffusion weighted imaging and ADC may be performed. COMPARISON: [facility], US, US ABDOMEN COMPLETE, 05/13/2018, 16:19. FINDINGS: Image quality: Excellent. Lung bases: No basal pleural effusions. Heart size is normal. Solid organs: Liver is normal in size and enhancement, and a small cluster of cysts in the right anterior hepatic segment is again seen, equivalent to that present during ultrasound scanning 05/13/18, and no hepatic mass lesions suggestive of solid mass is present. Gallbladder appears normal. Biliary system is non dilated. Pancreas is normal in morphology. Spleen is normal in size and enhancement. No adrenal nodules. Both kidneys demonstrate normal size and enhancement, without hydronephrosis. Hepatic steatosis appears present given the reduction of signal intensity on out of phase gradient T1 imaging. This also was seen during ultrasound scanning. Nodes and vessels: No retroperitoneal or mesenteric adenopathy by size criteria. Aorta and inferior vena cava are normal in size. Bowel and peritoneum: Unenhanced bowel loops are normal in caliber. No free fluid. Bones and soft tissues: No ventral hernias. Bone marrow is normal in overall signal. IMPRESSION: Hepatic steatosis, also seen prominently during ultrasound scanning earlier this month. Clinical correlation for etiology of fatty infiltration throughout the liver is recommended to determine source of this abnormality if possible. Several clustered cysts simple in character noted at the right anterior hepatic segment as was also seen with ultrasound. These appear benign in origin, and require no followup. Dictated by: Dion Vo M.D. on 05/26/2018 at 15:12 Approved by: Dion Vo M.D. on 05/26/2018 at 15:16 Chest x-ray: Radiologist's impression: Naveed Mayen 57 M [address] [address] XRay Report Signed Patient: Naveed Mayen [facility]#: [id number] : 9At:[id number] Age/Sex: 57 / MDate of Service: 05/30/18 Loc: ED Accession Number: [id number] Procedure: XR chest 1V Ordering Provider: Paula Hodge D.O. PROCEDURE: XR CHEST 1V INDICATIONS: cough TECHNIQUE: One view of the chest was acquired. COMPARISON: [facility], , XR CHEST 2V, 02/27/2018, 7:46. FINDINGS: Surgical changes and devices: None. Lungs and pleura: Lungs are clear. No pleural effusions or pneumothorax. Mediastinum: Mediastinal contours appear normal. Heart size is normal. Bones and chest wall: No suspicious bony lesions. Overlying soft tissues appear unremarkable. IMPRESSION: No evidence acute pulmonary process. Dictated by: Nabil Hamm M.D. on 05/30/2018 at 15:46 Approved by: Nabil Hamm M.D. on 05/30/2018 at 15:46 CT scan - abdomen: Radiologist's impression: [address] [address] [address] Scan Report Signed Patient: Naveed Mayen [facility]#: [id number] : 9Acct:[id number] Age/Sex: 57 / MDate of Service: 05/30/18 Loc: ED Accession Number: [id number] Procedure: CT abdomen pelvis w con Ordering Provider: Paula Hodge D.O. PROCEDURE: CT ABDOMEN PELVIS W CON INDICATIONS: lower abd pain, intermittent but worsening x 1 week. TECHNIQUE: After the administration of intravenous contrast, 5 mm thick sections acquired from the diaphragm to the symphysis. 5 mm coronal and sagittal reformats were acquired. For radiation dose reduction, the following was used: automated exposure control, adjustment of mA and/or kV according to patient size. COMPARISON: None. FINDINGS: Image quality: Excellent. ABDOMEN: Lung bases: Lung bases are clear. Heart size is normal. Solid organs: There is a lobulated right lobe liver cyst. The liver is otherwise normal in size and enhancement. Gallbladder is unremarkable. Biliary system is non dilated. Pancreas enhances normally. Spleen is normal in size and enhancement. No adrenal nodules. Kidneys demonstrate normal size and enhancement, without hydronephrosis. Peritoneum and bowel: Bowel loops demonstrate normal wall thickness and caliber. No free fluid or air. An air-filled appendix is identified. There is extensive sigmoid diverticulosis. There is minimal stranding in the adjacent fat suggesting possible acute pancreatitis. The Nodes and vessels: No retroperitoneal or mesenteric adenopathy by size criteria. Aorta and inferior vena cava are normal in size. Miscellaneous: No ventral hernias. PELVIS: Genitourinary: A large prostate. Mild bladder wall thickening. Miscellaneous: Small left inguinal hernia containing fat. Bones: No suspicious bony lesions. No vertebral body compression fractures. IMPRESSION: 1. Extensive diverticulosis in the sigmoid with probable mild changes of sigmoid diverticulitis. 2. Small left inguinal hernia containing fat. 3. Enlarged prostate, bladder wall thickening. Dictated by: Nabil Hamm M.D. on 05/30/2018 at 15:29 Approved by: Nabil Hamm M.D. on 05/30/2018 at 15:33 [facility] Narrative Medical decision making narrative: Patient's lab work shows slight elevation in glucose but otherwise normal labs. Chest x-ray shows no acute process. CT shows possibly a diverticulitis, some he does have diverticulosis. They do see changes to the liver still. As patient has been having lower abdominal pain and with his description of symptoms and potential for diverticulitis on his CT I will go ahead and treat with Cipro and Flagyl. Patient has a penicillin allergy so not given Augmentin. We discussed if his symptoms are rapidly worsening to return. Was also given an option for referral to gastroenterology as he was concerned about the liver cysts although we discussed his MRI again and he is supposed to have regular colonoscopy. Patient was comfortable with this plan. He is feeling a little bit better after Toradol. Discharge Plan Departure Patient Disposition: Home Clinical Impression: Diverticulitis Discharge Date/Time: 05/30/18 15:53 Interventions: ED Discharge Assessment Last Done: 05/30/18 15:53 Instructions: DI for Diverticulitis Activity Restrictions/Additional Instructions: Follow up with your primary care physician in the next 3-5 days for recheck if not improving. You may continue home medications as prescribed. Take antibiotics as prescribed until gone. Return to the ER for fevers greater than 100.4F, persistent symptoms, worsening abdominal pain, pain now radiating to her back, black or bloody stools, persistent vomiting, passing out or other new or concerning symptoms. Prescriptions: New metronidazole [Flagyl] 500 mg tablet 500 mg PO TID Qty: 30 RF: 0 ciprofloxacin HCl 500 mg tablet 500 mg PO BID Qty: 20 RF: 0 No Action esomeprazole magnesium [Nexium] 20 mg Capsule,Delayed Release(Dr/Ec) 20 mg PO PRN PRN (Reason: Heartburn) RF: 0 Antianxiety Med 1 dose PO PRN PRN (Reason: Anxiety) RF: 0 levothyroxine 1 dose PO DAILY RF: 0 benzonatate [Tessalon Perles] 100 mg capsule 100 mg PO TID PRN (Reason: cough) Qty: 15 RF: 0 Referrals: Rhonda Gomez MD [Non-Staff] - Damaris Kothari MD [Primary Care Provider] -
--- NOTE | 2018-05-30 13:42 | DI.RAD.S_ITS ---
PROCEDURE: XR CHEST 1V INDICATIONS: cough TECHNIQUE: One view of the chest was acquired. COMPARISON: [facility], CR, XR CHEST 2V, 02/27/2018, 7:46. FINDINGS: Surgical changes and devices: None. Lungs and pleura: Lungs are clear. No pleural effusions or pneumothorax. Mediastinum: Mediastinal contours appear normal. Heart size is normal. Bones and chest wall: No suspicious bony lesions. Overlying soft tissues appear unremarkable. IMPRESSION: No evidence acute pulmonary process. Dictated by: Nabil Hamm M.D. on 05/30/2018 at 15:46 Approved by: Nabil Hamm M.D. on 05/30/2018 at 15:46
--- NOTE | 2018-05-30 13:44 | DI.CT.S_ITS ---
PROCEDURE: CT ABDOMEN PELVIS W CON INDICATIONS: lower abd pain, intermittent but worsening x 1 week. TECHNIQUE: After the administration of intravenous contrast, 5 mm thick sections acquired from the diaphragm to the symphysis. 5 mm coronal and sagittal reformats were acquired. For radiation dose reduction, the following was used: automated exposure control, adjustment of mA and/or kV according to patient size. COMPARISON: None. FINDINGS: Image quality: Excellent. ABDOMEN: Lung bases: Lung bases are clear. Heart size is normal. Solid organs: There is a lobulated right lobe liver cyst. The liver is otherwise normal in size and enhancement. Gallbladder is unremarkable. Biliary system is non dilated. Pancreas enhances normally. Spleen is normal in size and enhancement. No adrenal nodules. Kidneys demonstrate normal size and enhancement, without hydronephrosis. Peritoneum and bowel: Bowel loops demonstrate normal wall thickness and caliber. No free fluid or air. An air-filled appendix is identified. There is extensive sigmoid diverticulosis. There is minimal stranding in the adjacent fat suggesting possible acute pancreatitis. The Nodes and vessels: No retroperitoneal or mesenteric adenopathy by size criteria. Aorta and inferior vena cava are normal in size. Miscellaneous: No ventral hernias. PELVIS: Genitourinary: A large prostate. Mild bladder wall thickening. Miscellaneous: Small left inguinal hernia containing fat. Bones: No suspicious bony lesions. No vertebral body compression fractures. IMPRESSION: 1. Extensive diverticulosis in the sigmoid with probable mild changes of sigmoid diverticulitis. 2. Small left inguinal hernia containing fat. 3. Enlarged prostate, bladder wall thickening. Dictated by: Nabil Hamm M.D. on 05/30/2018 at 15:29 Approved by: Nabil Hamm M.D. on 05/30/2018 at 15:33
[2018-05-30 14:08] VITALS: BP 123/77; PULSE 54; RESP 16; O2SAT 100
[2018-05-30] MEDS: SODIUM CHLORIDE 0.9% 1,000 ML 1000 ML IV (14:18)
[2018-05-30 14:22] LABS: Add Manual Diff / Slide Review NO; Basophils Absolute Auto 100 /uL (0-100); Basophils Percent Auto 0.8 % (0-2); Eosinophils Absolute Auto 500 /uL (0-450); Eosinophils Percent Auto 4.6 % (2-4); Hematocrit 43.4 % (41-53); Hemoglobin 14.4 g/dL (13.5-17.5); Lymphocytes Absolute Auto 1700 /uL (1100-4500); Lymphocytes Percent Auto 17.5 % (25-40); Mean Corpuscular HGB Conc 33.2 % (30-36); Mean Corpuscular Hemoglobin 26.7 PG (26-34); Mean Corpuscular Volume 80.4 fL (80-100); Monocytes Absolute Auto 900 /uL (0-900); Monocytes Percent Auto 8.8 % (3-14); Neutrophils Absolute Auto 6700 /uL (1500-7000); Neutrophils Percent Auto 68.3 % (50-75); Platelet Count 228 X10^3/uL (150-400); Red Blood Cell Count 5.39 X10^6/uL (4.5-5.9); Red Cell Distribution Width 14.3 % (11.6-14.8); White Blood Cell Count 9.9 X10^3/uL (4.5-11.0)
[2018-05-30 14:36] LABS: Alanine Aminotransferase 34 IU/L (21-72); Albumin 4.1 g/dL (3.5-5.0); Albumin Globulin Ratio 1.3 (1.0-2.8); Alkaline Phosphatase 87 U/L (38-126); Aspartate Aminotransferase 24 IU/L (17-59); BUN Creatinine Ratio 14.3 (6-22); Bilirubin Total 0.5 mg/dL (0.2-1.3); Blood Urea Nitrogen 10 mg/dL (9-20); Calcium 8.9 mg/dL (8.4-10.2); Carbon Dioxide 23 mmol/L (22-32); Chloride 104 mmol/L (98-107); Estimated Glomerular Filt Rate > 60.0 mL/min (>60); Globulin 3.1 g/dL (1.7-4.1); Glucose 123 mg/dL (70-100); HEMOLYSIS < 15 (0-50); Lipase 130 U/L (23-300); Potassium 3.8 mmol/L (3.4-5.1); Sodium 137 mmol/L (137-145); Total Protein 7.2 g/dL (6.3-8.2)
[2018-05-30] MEDS: KETOROLAC 60 MG/2 ML VIAL 30 MG IV (14:43)
[2018-05-30 15:53] VITALS: BP 121/74; PULSE 58; RESP 16; O2SAT 99
== END 2018-05-30 15:53 | disposition home or self-care (01) ==
PROVIDERS: Emergency Provider Emergency Medicine; PCP Family Medicine
DX: K57.90 Diverticulosis of intestine, part unspecified, without perforation or abscess without bleeding (principal); R42 Dizziness and giddiness; R53.1 Weakness
CPT/HCPCS: 36591; 71045; 74177; 80053; 81003; 83690; 85025; 96361; 96374; 99283; 99284; J1885; Q9967

== ENCOUNTER 2018-06-05 07:54 | Inpatient (IN) | payer OTHER, SELFPAY ==
[2018-02-26 22:30] VITALS: BMI 24.9
--- NOTE | 2018-06-05 08:05 | DI.CT.S_ITS ---
PROCEDURE: CT ABDOMEN PELVIS W CON INDICATIONS: History of diverticulitis with increasing pain. TECHNIQUE: After the administration of intravenous contrast, 5 mm thick sections acquired from the diaphragm to the symphysis. 5 mm coronal and sagittal reformats were acquired. For radiation dose reduction, the following was used: automated exposure control, adjustment of mA and/or kV according to patient size. COMPARISON: [facility], CT, CT ABDOMEN PELVIS W CON, 05/30/2018, 14:42. FINDINGS: Image quality: Excellent. ABDOMEN: Lung bases: There is mild dependent atelectasis. Heart size is normal. Solid organs: There is hypoattenuation of the liver consistent with fatty infiltration. A lobulated cyst is redemonstrated in the right hepatic lobe. Gallbladder appears within normal limits without calcified gallstones. Biliary system is non dilated. Pancreas enhances normally. Spleen is normal in size and enhancement. No adrenal nodules. Kidneys demonstrate no hydronephrosis. Peritoneum and bowel: Small bowel loops demonstrate normal wall thickness and caliber. There is diverticulosis throughout the colon with associated inflammatory fat stranding and wall thickening in the proximal sigmoid colon consistent with acute diverticulitis. The findings are increased from the prior study with a new region of opacified pericolonic fat anterior to the sigmoid colon suggestive of a phlegmon without a discrete abscess collection. This extends to the adjacent urinary bladder which demonstrates associated bladder wall thickening along the left bladder dome. There is minimal associated free fluid. No macroscopic free air. Nodes and vessels: No retroperitoneal or mesenteric adenopathy by size criteria. Aorta and inferior vena cava are normal in size. Miscellaneous: No ventral hernias. PELVIS: Genitourinary: Bladder wall thickness is normal. Miscellaneous: There is a small fat-containing left inguinal hernia. No inguinal adenopathy. Bones: No suspicious bony lesions. No vertebral body compression fractures. IMPRESSION: 1. Acute diverticulitis in the proximal sigmoid colon demonstrates progression compared to the prior study with increased fat stranding and segmental wall thickening. A new associated area of fat inflammation is demonstrated anteriorly suggestive of a phlegmon without a discrete diverticular abscess. No macroscopic free air. 2. Associated inflammatory changes of the adjacent urinary bladder suggestive of a reactive cystitis. Dictated by: Cameron Brown M.D. on 06/05/2018 at 8:38 Approved by: Cameron Brown M.D. on 06/05/2018 at 8:43
[2018-06-05 08:08] VITALS: BP 129/89; PULSE 75; RESP 18; TEMP 36.6; O2SAT 99; BMI 26.2
--- NOTE | 2018-06-05 08:15 | ED.ABDPAIN ---
HPI - Abdominal Pain General Chief Complaint: Abdominal Pain Stated Complaint: Diverticulitis Time Seen by Provider: 06/05/18 08:00 Source: patient and family Mode of arrival: ambulatory Limitations: no limitations History of Present Illness HPI narrative: 57-year-old former smoker with history of diverticulitis presents with worsening abdominal pain, fever and nausea. He was seen and evaluated about a week ago and after thorough evaluation was told he had diverticulitis and was discharged on Cipro and Flagyl. He continues to worsen despite appropriate outpatient therapy. He denies chest pain or shortness of breath. He has had nausea but denies vomiting. MD complaint: abdominal pain Onset (ago): day(s) Pain Consistency: constant Location: epigastric Severity: moderate Quality: cramping and stabbing Radiation: none Migration to: no migration Relieving factors: rest Exacerbating factors: eating and movement Context: recent antibiotic use Associated symptoms: nausea Related Data Home Medications Medication Instructions Recorded Confirmed esomeprazole magnesium [Nexium] See Rx Instructions .ROUTE .COMPLEX 02/26/18 06/05/18 levothyroxine 100 mcg PO DAILY 02/26/18 06/05/18 atenolol 25 mg PO DAILY 06/05/18 06/05/18 atorvastatin 40 mg PO DAILY 06/05/18 06/05/18 cetirizine 10 mg PO DAILY 06/05/18 06/05/18 metoclopramide HCl 5 mg PO PRN PRN 06/05/18 06/05/18 ranitidine HCl 150 mg PO BID 06/05/18 06/05/18 Previous Rx's Medication Instructions Recorded ciprofloxacin HCl 500 mg PO BID #20 tab 05/30/18 metronidazole [Flagyl] 500 mg PO TID #30 tab 05/30/18 Allergies Allergy/AdvReac Type Severity Reaction Status Date / Time Penicillins Allergy Verified 06/05/18 08:15 Review of Systems Review of Systems ROS Unobtainable: All systems reviewed & are unremarkable except as noted in HPI and below Constitutional Denies chills, Denies fever(s), Denies lethargy and Denies weakness Eyes Denies change in vision, Denies eye discharge, Denies irritation and Denies loss of vision ENT Ears, Nose, Mouth, and Throat: Denies change in voice, Denies neck pain and Denies sore throat Cardiovascular Denies chest pain, Denies irregular heart rhythm, Denies lightheadedness, Denies palpitations, Denies dyspnea, Denies dyspnea on exertion and Denies orthopnea Respiratory Denies cough, Denies dyspnea, Denies dyspnea on exertion and Denies wheezing Gastrointestinal Gastrointestinal: Reports abdominal pain, Denies change in bowel habits, Denies diarrhea, Reports nausea and Denies vomiting Genitourinary Denies hematuria, Denies flank pain, Denies urinary incontinence and Denies urinary urgency Musculoskeletal Denies neck pain Integumentary/Breasts Denies pruritus, Denies erythema, Denies rash and Denies wounds Neurologic Denies confusion, Denies loss of vision and Denies weakness Psychiatric Denies anxiety, Denies confusion, Denies depression, Denies homicidal ideation and Denies suicidal ideation Endocrine Denies palpitations Hematologic/Lymphatic Denies easy bruising Allergic/Immunologic Denies wheezing PFSH Medical History Acid reflux (Acute) Colon polyps (Acute) HTN (hypertension) (Acute) Hypercholesteremia (Acute) Hypothyroid (Chronic) Social History household members: family Smoking Status: Former smoker alcohol intake: current Social History household members: family Smoking Status: Former smoker alcohol intake: current Exam Narrative Exam Narrative: GENERAL: 57-year-old male appears younger than stated age, obviously uncomfortable and rubbing his abdomen HEAD: Atraumatic. Normocephalic. No temporal or scalp tenderness. EYES: Pupils equal round and reactive. Extraocular motions intact. No scleral icterus. No injection or drainage. ENT: Nose without bleeding, purulent drainage or septal hematoma. Throat without erythema, tonsillar hypertrophy or exudate. Uvula midline. Airway patent. NECK: Trachea midline. No JVD or lymphadenopathy. Supple, nontender, no meningeal signs. CARDIOVASCULAR: Regular rate and rhythm without murmurs, gallops, or rubs. RESPIRATORY: Clear to auscultation. Breath sounds equal bilaterally. No wheezes, rales, or rhonchi. GASTROINTESTINAL: Abdomen soft, tender in the epigastrium and periumbilical region, nondistended. No hepato-splenomegaly, or palpable masses. No guarding. EXTREMITIES: No clubbing, cyanosis, or edema. No joint tenderness, effusion, or edema noted. BACK: Nontender without deformity or crepitance. No flank tenderness. NEURO: AOx3. SKIN: No rash or erythema. Initial Vital Signs Initial Vital Signs: Vital Signs Temperature 97.9 F 06/05/18 08:08 Pulse Rate 75 06/05/18 08:08 Respiratory Rate 18 06/05/18 08:08 Blood Pressure 129/89 06/05/18 08:08 Pulse Oximetry 99 06/05/18 08:08 Course Course Narrative: Given significant worsening of symptoms and exam despite appropriate outpatient antibiotic use a repeat CT is ordered to rule out abscess or perforation. The CT does confirm suspicion of abscess as evidenced by the phlegmon. As a result call to General surgery for admission. Dr. Starks happy to accept and will see patient at bedside Orders Ordered: Acetaminophen (Tylenol) 975 mg PO Q6H [facility] Last Admin: 06/08/18 01:33 Dose: Not Given Admin: 06/07/18 18:52 Dose: 975 mg Admin: 06/07/18 12:47 Dose: 975 mg Atenolol (Tenormin) 25 mg PO DAILY [facility] Last Admin: 06/07/18 09:08 Dose: 25 mg Atorvastatin Calcium (Lipitor) 40 mg PO BEDTIME [facility] Last Admin: 06/07/18 20:36 Dose: 40 mg Enoxaparin Sodium (Lovenox) 40 mg SUBCUT DAILY [facility] Last Admin: 06/07/18 12:46 Dose: Not Given Gabapentin (Neurontin) 300 mg PO TID [facility] Last Admin: 06/07/18 20:41 Dose: 300 mg Admin: 06/07/18 14:05 Dose: 300 mg Lactated Ringer's (Lactated Ringers) 1,000 mls @ 100 mls/hr IV CONT [facility] Last Admin: 06/08/18 01:22 Dose: 100 mls/hr Infusion: 06/07/18 08:49 Dose: 100 mls/hr Admin: 06/06/18 22:49 Dose: 100 mls/hr Infusion: 06/06/18 20:10 Dose: 100 mls/hr Admin: 06/06/18 10:10 Dose: 100 mls/hr Infusion: 06/05/18 21:10 Dose: 100 mls/hr Admin: 06/05/18 11:10 Dose: 100 mls/hr Levofloxacin (Levaquin) 750 mg in 150 mls @ 100 mls/hr IV Q24H [facility] Last Admin: 06/07/18 09:59 Dose: 100 mls/hr Infusion: 06/06/18 13:00 Dose: 0 mls/hr Admin: 06/06/18 11:31 Dose: 100 mls/hr Metronidazole (Flagyl) 500 mg in 100 mls @ 100 mls/hr IV Q8HR [facility] Last Admin: 06/07/18 22:38 Dose: 100 mls/hr Infusion: 06/07/18 14:12 Dose: 0 mls/hr Admin: 06/07/18 12:49 Dose: 100 mls/hr Lactobacillus Acidophilus (Bacid Caplet) 1 each PO TIDWM [facility] Last Admin: 06/07/18 17:31 Dose: 1 each Admin: 06/07/18 11:34 Dose: 1 each Admin: 06/07/18 09:08 Dose: 1 each Levothyroxine Sodium (Synthroid) 100 mcg PO 0600 [facility] Last Admin: 06/07/18 09:08 Dose: 100 mcg Methocarbamol (Robaxin) 500 mg PO TID [facility] Last Admin: 06/07/18 20:36 Dose: 500 mg Admin: 06/07/18 14:05 Dose: 500 mg Stored In Pharmacy 0 each PO PRN PRN PRN Reason: . Ondansetron HCl (Zofran) 4 mg IV Q6HR PRN PRN Reason: Nausea And Vomiting Last Admin: 06/07/18 18:53 Dose: 4 mg Oxycodone HCl (Oxycodone) 5 mg PO Q4HR PRN PRN Reason: Pain, Moderate (4-6) Oxycodone HCl (Oxycodone) 10 mg PO Q4HR PRN PRN Reason: Pain, Severe (7-10) Polyethylene Glycol (Miralax) 17 gm PO DAILY [facility] Last Admin: 06/07/18 12:45 Dose: Not Given Ranitidine HCl (Zantac) 150 mg PO BID [facility] Last Admin: 06/07/18 20:36 Dose: 150 mg Admin: 06/07/18 09:09 Dose: 150 mg Admin: 06/06/18 21:17 Dose: Not Given Admin: 06/06/18 14:31 Dose: 150 mg Simethicone (Mylicon) 80 mg PO QID PRN PRN Reason: Flatulence Last Admin: 06/06/18 14:31 Dose: 80 mg Sodium Chloride (Normal Saline 0.9% Flush) 10 ml IV PRN PRN PRN Reason: Flush Sodium Chloride (Normal Saline 0.9% Flush) 10 ml IV BID [facility] Last Admin: 06/07/18 20:34 Dose: Not Given Admin: 06/07/18 09:09 Dose: 10 ml Admin: 06/06/18 21:15 Dose: Not Given Admin: 06/06/18 08:57 Dose: Not Given Discontinued Medications Atenolol (Tenormin) 25 mg PO NOW ONE Stop: 06/07/18 01:46 Last Admin: 06/07/18 02:27 Dose: 25 mg Hydromorphone HCl (Dilaudid) 0.5 mg IV NOW ONE Stop: 06/05/18 08:05 Last Admin: 06/05/18 09:23 Dose: 0.5 mg Sodium Chloride (Normal Saline 0.9%) 500 mls @ 1,000 mls/hr IV BOLUS ONE Stop: 06/05/18 08:33 Last Infusion: 06/05/18 08:55 Dose: 0 mls/hr Admin: 06/05/18 08:29 Dose: 1,000 mls/hr Levofloxacin (Levaquin) 750 mg in 150 mls @ 100 mls/hr IV NOW ONE Stop: 06/05/18 10:48 Last Infusion: 06/05/18 11:11 Dose: 0 mls/hr Infusion: 06/05/18 10:24 Dose: 100 mls/hr Admin: 06/05/18 09:24 Dose: 100 mls/hr Metronidazole (Flagyl) 500 mg in 100 mls @ 100 mls/hr IV NOW ONE Stop: 06/05/18 10:18 Last Infusion: 06/05/18 14:41 Dose: 0 mls/hr Admin: 06/05/18 11:11 Dose: 100 mls/hr Metronidazole (Flagyl) 500 mg in 100 mls @ 100 mls/hr IV Q6H [facility] Last Admin: 06/07/18 06:28 Dose: 100 mls/hr Infusion: 06/07/18 01:12 Dose: 100 mls/hr Admin: 06/07/18 00:12 Dose: 100 mls/hr Infusion: 06/06/18 21:06 Dose: 0 mls/hr Admin: 06/06/18 18:34 Dose: 100 mls/hr Infusion: 06/06/18 14:32 Dose: 0 mls/hr Admin: 06/06/18 13:26 Dose: 100 mls/hr Infusion: 06/06/18 06:50 Dose: 0 mls/hr Admin: 06/06/18 05:46 Dose: 100 mls/hr Infusion: 06/06/18 01:59 Dose: 0 mls/hr Admin: 06/06/18 00:12 Dose: 100 mls/hr Infusion: 06/05/18 20:01 Dose: 0 mls/hr Admin: 06/05/18 17:27 Dose: 100 mls/hr Ondansetron HCl (Zofran) 4 mg IV NOW ONE Stop: 06/05/18 08:05 Last Admin: 06/05/18 08:28 Dose: 4 mg Oxycodone/Acetaminophen (Percocet 5/325) 1 tab PO Q4HR PRN PRN Reason: Pain, Moderate (4-6) Last Admin: 06/07/18 09:55 Dose: 1 tab Admin: 06/06/18 22:48 Dose: 1 tab Admin: 06/06/18 18:33 Dose: 1 tab Admin: 06/06/18 14:31 Dose: 1 tab Admin: 06/06/18 08:56 Dose: 1 tab Admin: 06/06/18 00:35 Dose: 1 tab Admin: 06/05/18 19:53 Dose: 1 tab Admin: 06/05/18 15:50 Dose: 1 tab Admin: 06/05/18 11:10 Dose: 1 tab Vital Signs - 8 hr 06/07/18 19:33 06/07/18 23:50 Temperature 98.4 F 98.1 F Pulse Rate 49 L 52 L Respiratory Rate 17 16 Blood Pressure 134/74 113/68 Pulse Oximetry 98 93 MDM - Abdominal Pain Medical Records Attestation: I reviewed the patient's medical records. Lab Data Attestation: I reviewed the patient's lab results. Result diagrams: 06/06/18 05:20 06/05/18 08:10 Lab Results 06/05/18 06/05/18 06/06/18 Range/Units 08:10 08:10 05:20 WBC 10.3 9.8 (4.5-11.0) X10^3/uL RBC 5.36 5.12 (4.5-5.9) X10^6/uL Hgb 14.6 13.7 (13.5-17.5) g/dL Hct 42.8 41.0 (41-53) % MCV 79.9 L 80.1 (80-100) fL MCH 27.2 26.7 (26-34) PG MCHC 34.0 33.4 (30-36) % RDW 14.4 14.7 (11.6-14.8) % Plt Count 238 224 (150-400) X10^3/uL Neut % (Auto) 67.2 69.6 (50-75) % Lymph % (Auto) 18.1 L 14.4 L (25-40) % [place] % (Auto) 9.3 12.1 (3-14) % Eos % (Auto) 4.4 H 3.1 (2-4) % Baso % (Auto) 1.0 0.8 (0-2) % Neut # (Auto) 6900 6800 (0281-4627) /uL Lymph # (Auto) 1900 1400 (7808-1918) /uL [place] # (Auto) 1000 H 1200 H (0-900) /uL Eos # (Auto) 500 H 300 (0-450) /uL Baso # (Auto) 100 100 (0-100) /uL Sodium 136 L (137-145) mmol/L Potassium 3.9 (3.4-5.1) mmol/L Chloride 104 (98-107) mmol/L Carbon Dioxide 21 L (22-32) mmol/L BUN 8 L (9-20) mg/dL Creatinine 0.70 (0.66-1.25) mg/dL Estimated GFR > 60.0 (>60) mL/min BUN/Creatinine Ratio 11.4 (6-22) Glucose 113 H (70-100) mg/dL Calcium 8.8 (8.4-10.2) mg/dL Total Bilirubin 0.5 (0.2-1.3) mg/dL AST 42 (17-59) IU/L ALT 64 (21-72) IU/L Alkaline Phosphatase 92 (38-126) U/L Total Protein 6.9 (6.3-8.2) g/dL Albumin 3.9 (3.5-5.0) g/dL Globulin 3.0 (1.7-4.1) g/dL Albumin/Globulin Ratio 1.3 (1.0-2.8) Lipase 104 (23-300) U/L Point of care testing: Point of Care Testing Glucose POC [address] scan - abdomen: Radiologist's impression: Naveed Mayen 57 M [address] [address] [address] Scan Report Signed Patient: Naveed Mayen DMR#: [id number] : [id number]:[id number] Age/Sex: 57 / MDate of Service: 06/05/18 Loc: ED Accession Number: [id number] Procedure: CT abdomen pelvis w con Ordering Provider: Wes Serrano D.O. PROCEDURE: CT ABDOMEN PELVIS W CON INDICATIONS: History of diverticulitis with increasing pain. TECHNIQUE: After the administration of intravenous contrast, 5 mm thick sections acquired from the diaphragm to the symphysis. 5 mm coronal and sagittal reformats were acquired. For radiation dose reduction, the following was used: automated exposure control, adjustment of mA and/or kV according to patient size. COMPARISON: [facility], CT, CT ABDOMEN PELVIS W CON, 05/30/2018, 14:42. FINDINGS: Image quality: Excellent. ABDOMEN: Lung bases: There is mild dependent atelectasis. Heart size is normal. Solid organs: There is hypoattenuation of the liver consistent with fatty infiltration. A lobulated cyst is redemonstrated in the right hepatic lobe. Gallbladder appears within normal limits without calcified gallstones. Biliary system is non dilated. Pancreas enhances normally. Spleen is normal in size and enhancement. No adrenal nodules. Kidneys demonstrate no hydronephrosis. Peritoneum and bowel: Small bowel loops demonstrate normal wall thickness and caliber. There is diverticulosis throughout the colon with associated inflammatory fat stranding and wall thickening in the proximal sigmoid colon consistent with acute diverticulitis. The findings are increased from the prior study with a new region of opacified pericolonic fat anterior to the sigmoid colon suggestive of a phlegmon without a discrete abscess collection. This extends to the adjacent urinary bladder which demonstrates associated bladder wall thickening along the left bladder dome. There is minimal associated free fluid. No macroscopic free air. Nodes and vessels: No retroperitoneal or mesenteric adenopathy by size criteria. Aorta and inferior vena cava are normal in size. Miscellaneous: No ventral hernias. PELVIS: Genitourinary: Bladder wall thickness is normal. Miscellaneous: There is a small fat-containing left inguinal hernia. No inguinal adenopathy. Bones: No suspicious bony lesions. No vertebral body compression fractures. IMPRESSION: 1. Acute diverticulitis in the proximal sigmoid colon demonstrates progression compared to the prior study with increased fat stranding and segmental wall thickening. A new associated area of fat inflammation is demonstrated anteriorly suggestive of a phlegmon without a discrete diverticular abscess. No macroscopic free air. 2. Associated inflammatory changes of the adjacent urinary bladder suggestive of a reactive cystitis. Dictated by: Cameron Brown M.D. on 06/05/2018 at 8:38 Approved by: Cameron Brown M.D. on 06/05/2018 at 8:43 Discharge Plan Departure Patient Disposition: Admitted As Inpatient Clinical Impression: Diverticulitis Discharge Date/Time: 06/05/18 10:25 Interventions: ED Discharge Assessment Last Done: 06/05/18 10:10 Admit Date/Time: 06/05/18 09:23 Admit Provider: Anuel Starks
[2018-06-05 08:25] LABS: Add Manual Diff / Slide Review NO; Basophils Absolute Auto 100 /uL (0-100); Eosinophils Absolute Auto 500 /uL (0-450); Eosinophils Percent Auto 4.4 % (2-4); Hematocrit 42.8 % (41-53); Hemoglobin 14.6 g/dL (13.5-17.5); Lymphocytes Absolute Auto 1900 /uL (1100-4500); Lymphocytes Percent Auto 18.1 % (25-40); Mean Corpuscular Hemoglobin 27.2 PG (26-34); Mean Corpuscular Volume 79.9 fL (80-100); Monocytes Absolute Auto 1000 /uL (0-900); Monocytes Percent Auto 9.3 % (3-14); Neutrophils Absolute Auto 6900 /uL (1500-7000); Neutrophils Percent Auto 67.2 % (50-75); Platelet Count 238 X10^3/uL (150-400); Red Blood Cell Count 5.36 X10^6/uL (4.5-5.9); Red Cell Distribution Width 14.4 % (11.6-14.8); White Blood Cell Count 10.3 X10^3/uL (4.5-11.0)
[2018-06-05] MEDS: ONDANSETRON 4 MG/2 ML INJ IV (08:28)
[2018-06-05] MEDS: SODIUM CHLORIDE 0.9% 500 ML 1000 ML IV (08:29)
--- NOTE | 2018-06-05 08:29 | PC.NURSE ---
Pt requests no pain meds until knows if will be admitted
[2018-06-05 08:34] LABS: Alanine Aminotransferase 64 IU/L (21-72); Albumin 3.9 g/dL (3.5-5.0); Albumin Globulin Ratio 1.3 (1.0-2.8); Alkaline Phosphatase 92 U/L (38-126); Aspartate Aminotransferase 42 IU/L (17-59); BUN Creatinine Ratio 11.4 (6-22); Bilirubin Total 0.5 mg/dL (0.2-1.3); Blood Urea Nitrogen 8 mg/dL (9-20); Calcium 8.8 mg/dL (8.4-10.2); Carbon Dioxide 21 mmol/L (22-32); Chloride 104 mmol/L (98-107); Estimated Glomerular Filt Rate > 60.0 mL/min (>60); Glucose 113 mg/dL (70-100); HEMOLYSIS < 15 (0-50); Lipase 104 U/L (23-300); Potassium 3.9 mmol/L (3.4-5.1); Sodium 136 mmol/L (137-145); Total Protein 6.9 g/dL (6.3-8.2)
--- NOTE | 2018-06-05 09:17 | ED_ITS ---
HPI - Abdominal Pain General Chief Complaint: Abdominal Pain Stated Complaint: Diverticulitis Time Seen by Provider: 06/05/18 08:00 Source: patient and family Mode of arrival: ambulatory Limitations: no limitations History of Present Illness HPI narrative: 57-year-old former smoker with history of diverticulitis presents with worsening abdominal pain, fever and nausea. He was seen and evaluated about a week ago and after thorough evaluation was told he had diverticulitis and was discharged on Cipro and Flagyl. He continues to worsen despite appropriate outpatient therapy. He denies chest pain or shortness of breath. He has had nausea but denies vomiting. MD complaint: abdominal pain Onset (ago): day(s) Pain Consistency: constant Location: epigastric Severity: moderate Quality: cramping and stabbing Radiation: none Migration to: no migration Relieving factors: rest Exacerbating factors: eating and movement Context: recent antibiotic use Associated symptoms: nausea Related Data Home Medications Medication Instructions Recorded Confirmed esomeprazole magnesium [Nexium] See Rx Instructions .ROUTE .COMPLEX 02/26/18 06/05/18 levothyroxine 100 mcg PO DAILY 02/26/18 06/05/18 atenolol 25 mg PO DAILY 06/05/18 06/05/18 atorvastatin 40 mg PO DAILY 06/05/18 06/05/18 cetirizine 10 mg PO DAILY 06/05/18 06/05/18 metoclopramide HCl 5 mg PO PRN PRN 06/05/18 06/05/18 ranitidine HCl 150 mg PO BID 06/05/18 06/05/18 Previous Rx's Medication Instructions Recorded ciprofloxacin HCl 500 mg PO BID #20 tab 05/30/18 metronidazole [Flagyl] 500 mg PO TID #30 tab 05/30/18 Allergies Allergy/AdvReac Type Severity Reaction Status Date / Time Penicillins Allergy Verified 06/05/18 08:15 Review of Systems Review of Systems ROS Unobtainable: All systems reviewed & are unremarkable except as noted in HPI and below Constitutional Denies chills, Denies fever(s), Denies lethargy and Denies weakness Eyes Denies change in vision, Denies eye discharge, Denies irritation and Denies loss of vision ENT Ears, Nose, Mouth, and Throat: Denies change in voice, Denies neck pain and Denies sore throat Cardiovascular Denies chest pain, Denies irregular heart rhythm, Denies lightheadedness, Denies palpitations, Denies dyspnea, Denies dyspnea on exertion and Denies orthopnea Respiratory Denies cough, Denies dyspnea, Denies dyspnea on exertion and Denies wheezing Gastrointestinal Gastrointestinal: Reports abdominal pain, Denies change in bowel habits, Denies diarrhea, Reports nausea and Denies vomiting Genitourinary Denies hematuria, Denies flank pain, Denies urinary incontinence and Denies urinary urgency Musculoskeletal Denies neck pain Integumentary/Breasts Denies pruritus, Denies erythema, Denies rash and Denies wounds Neurologic Denies confusion, Denies loss of vision and Denies weakness Psychiatric Denies anxiety, Denies confusion, Denies depression, Denies homicidal ideation and Denies suicidal ideation Endocrine Denies palpitations Hematologic/Lymphatic Denies easy bruising Allergic/Immunologic Denies wheezing PFSH Medical History Acid reflux (Acute) Colon polyps (Acute) HTN (hypertension) (Acute) Hypercholesteremia (Acute) Hypothyroid (Chronic) Social History household members: family Smoking Status: Former smoker alcohol intake: current Social History household members: family Smoking Status: Former smoker alcohol intake: current Exam Narrative Exam Narrative: GENERAL: 57-year-old male appears younger than stated age, obviously uncomfortable and rubbing his abdomen HEAD: Atraumatic. Normocephalic. No temporal or scalp tenderness. EYES: Pupils equal round and reactive. Extraocular motions intact. No scleral icterus. No injection or drainage. ENT: Nose without bleeding, purulent drainage or septal hematoma. Throat without erythema, tonsillar hypertrophy or exudate. Uvula midline. Airway patent. NECK: Trachea midline. No JVD or lymphadenopathy. Supple, nontender, no meningeal signs. CARDIOVASCULAR: Regular rate and rhythm without murmurs, gallops, or rubs. RESPIRATORY: Clear to auscultation. Breath sounds equal bilaterally. No wheezes, rales, or rhonchi. GASTROINTESTINAL: Abdomen soft, tender in the epigastrium and periumbilical region, nondistended. No hepato-splenomegaly, or palpable masses. No guarding. EXTREMITIES: No clubbing, cyanosis, or edema. No joint tenderness, effusion, or edema noted. BACK: Nontender without deformity or crepitance. No flank tenderness. NEURO: AOx3. SKIN: No rash or erythema. Initial Vital Signs Initial Vital Signs: Vital Signs Temperature 97.9 F 06/05/18 08:08 Pulse Rate 75 06/05/18 08:08 Respiratory Rate 18 06/05/18 08:08 Blood Pressure 129/89 06/05/18 08:08 Pulse Oximetry 99 06/05/18 08:08 Course Course Narrative: Given significant worsening of symptoms and exam despite appropriate outpatient antibiotic use a repeat CT is ordered to rule out abscess or perforation. The CT does confirm suspicion of abscess as evidenced by the phlegmon. As a result call to General surgery for admission. Dr. Starks happy to accept and will see patient at bedside Orders Ordered: Acetaminophen (Tylenol) 975 mg PO Q6H [facility] Last Admin: 06/08/18 01:33 Dose: Not Given Admin: 06/07/18 18:52 Dose: 975 mg Admin: 06/07/18 12:47 Dose: 975 mg Atenolol (Tenormin) 25 mg PO DAILY [facility] Last Admin: 06/07/18 09:08 Dose: 25 mg Atorvastatin Calcium (Lipitor) 40 mg PO BEDTIME [facility] Last Admin: 06/07/18 20:36 Dose: 40 mg Enoxaparin Sodium (Lovenox) 40 mg SUBCUT DAILY [facility] Last Admin: 06/07/18 12:46 Dose: Not Given Gabapentin (Neurontin) 300 mg PO TID [facility] Last Admin: 06/07/18 20:41 Dose: 300 mg Admin: 06/07/18 14:05 Dose: 300 mg Lactated Ringer's (Lactated Ringers) 1,000 mls @ 100 mls/hr IV CONT [facility] Last Admin: 06/08/18 01:22 Dose: 100 mls/hr Infusion: 06/07/18 08:49 Dose: 100 mls/hr Admin: 06/06/18 22:49 Dose: 100 mls/hr Infusion: 06/06/18 20:10 Dose: 100 mls/hr Admin: 06/06/18 10:10 Dose: 100 mls/hr Infusion: 06/05/18 21:10 Dose: 100 mls/hr Admin: 06/05/18 11:10 Dose: 100 mls/hr Levofloxacin (Levaquin) 750 mg in 150 mls @ 100 mls/hr IV Q24H [facility] Last Admin: 06/07/18 09:59 Dose: 100 mls/hr Infusion: 06/06/18 13:00 Dose: 0 mls/hr Admin: 06/06/18 11:31 Dose: 100 mls/hr Metronidazole (Flagyl) 500 mg in 100 mls @ 100 mls/hr IV Q8HR [facility] Last Admin: 06/07/18 22:38 Dose: 100 mls/hr Infusion: 06/07/18 14:12 Dose: 0 mls/hr Admin: 06/07/18 12:49 Dose: 100 mls/hr Lactobacillus Acidophilus (Bacid Caplet) 1 each PO TIDWM [facility] Last Admin: 06/07/18 17:31 Dose: 1 each Admin: 06/07/18 11:34 Dose: 1 each Admin: 06/07/18 09:08 Dose: 1 each Levothyroxine Sodium (Synthroid) 100 mcg PO 0600 [facility] Last Admin: 06/07/18 09:08 Dose: 100 mcg Methocarbamol (Robaxin) 500 mg PO TID [facility] Last Admin: 06/07/18 20:36 Dose: 500 mg Admin: 06/07/18 14:05 Dose: 500 mg Stored In Pharmacy 0 each PO PRN PRN PRN Reason: . Ondansetron HCl (Zofran) 4 mg IV Q6HR PRN PRN Reason: Nausea And Vomiting Last Admin: 06/07/18 18:53 Dose: 4 mg Oxycodone HCl (Oxycodone) 5 mg PO Q4HR PRN PRN Reason: Pain, Moderate (4-6) Oxycodone HCl (Oxycodone) 10 mg PO Q4HR PRN PRN Reason: Pain, Severe (7-10) Polyethylene Glycol (Miralax) 17 gm PO DAILY [facility] Last Admin: 06/07/18 12:45 Dose: Not Given Ranitidine HCl (Zantac) 150 mg PO BID [facility] Last Admin: 06/07/18 20:36 Dose: 150 mg Admin: 06/07/18 09:09 Dose: 150 mg Admin: 06/06/18 21:17 Dose: Not Given Admin: 06/06/18 14:31 Dose: 150 mg Simethicone (Mylicon) 80 mg PO QID PRN PRN Reason: Flatulence Last Admin: 06/06/18 14:31 Dose: 80 mg Sodium Chloride (Normal Saline 0.9% Flush) 10 ml IV PRN PRN PRN Reason: Flush Sodium Chloride (Normal Saline 0.9% Flush) 10 ml IV BID [facility]UCY Last Admin: 06/07/18 20:34 Dose: Not Given Admin: 06/07/18 09:09 Dose: 10 ml Admin: 06/06/18 21:15 Dose: Not Given Admin: 06/06/18 08:57 Dose: Not Given Discontinued Medications Atenolol (Tenormin) 25 mg PO NOW ONE Stop: 06/07/18 01:46 Last Admin: 06/07/18 02:27 Dose: 25 mg Hydromorphone HCl (Dilaudid) 0.5 mg IV NOW ONE Stop: 06/05/18 08:05 Last Admin: 06/05/18 09:23 Dose: 0.5 mg Sodium Chloride (Normal Saline 0.9%) 500 mls @ 1,000 mls/hr IV BOLUS ONE Stop: 06/05/18 08:33 Last Infusion: 06/05/18 08:55 Dose: 0 mls/hr Admin: 06/05/18 08:29 Dose: 1,000 mls/hr Levofloxacin (Levaquin) 750 mg in 150 mls @ 100 mls/hr IV NOW ONE Stop: 06/05/18 10:48 Last Infusion: 06/05/18 11:11 Dose: 0 mls/hr Infusion: 06/05/18 10:24 Dose: 100 mls/hr Admin: 06/05/18 09:24 Dose: 100 mls/hr Metronidazole (Flagyl) 500 mg in 100 mls @ 100 mls/hr IV NOW ONE Stop: 06/05/18 10:18 Last Infusion: 06/05/18 14:41 Dose: 0 mls/hr Admin: 06/05/18 11:11 Dose: 100 mls/hr Metronidazole (Flagyl) 500 mg in 100 mls @ 100 mls/hr IV Q6H [facility] Last Admin: 06/07/18 06:28 Dose: 100 mls/hr Infusion: 06/07/18 01:12 Dose: 100 mls/hr Admin: 06/07/18 00:12 Dose: 100 mls/hr Infusion: 06/06/18 21:06 Dose: 0 mls/hr Admin: 06/06/18 18:34 Dose: 100 mls/hr Infusion: 06/06/18 14:32 Dose: 0 mls/hr Admin: 06/06/18 13:26 Dose: 100 mls/hr Infusion: 06/06/18 06:50 Dose: 0 mls/hr Admin: 06/06/18 05:46 Dose: 100 mls/hr Infusion: 06/06/18 01:59 Dose: 0 mls/hr Admin: 06/06/18 00:12 Dose: 100 mls/hr Infusion: 06/05/18 20:01 Dose: 0 mls/hr Admin: 06/05/18 17:27 Dose: 100 mls/hr Ondansetron HCl (Zofran) 4 mg IV NOW ONE Stop: 06/05/18 08:05 Last Admin: 06/05/18 08:28 Dose: 4 mg Oxycodone/Acetaminophen (Percocet 5/325) 1 tab PO Q4HR PRN PRN Reason: Pain, Moderate (4-6) Last Admin: 06/07/18 09:55 Dose: 1 tab Admin: 06/06/18 22:48 Dose: 1 tab Admin: 06/06/18 18:33 Dose: 1 tab Admin: 06/06/18 14:31 Dose: 1 tab Admin: 06/06/18 08:56 Dose: 1 tab Admin: 06/06/18 00:35 Dose: 1 tab Admin: 06/05/18 19:53 Dose: 1 tab Admin: 06/05/18 15:50 Dose: 1 tab Admin: 06/05/18 11:10 Dose: 1 tab Vital Signs - 8 hr 06/07/18 19:33 06/07/18 23:50 Temperature 98.4 F 98.1 F Pulse Rate 49 L 52 L Respiratory Rate 17 16 Blood Pressure 134/74 113/68 Pulse Oximetry 98 93 MDM - Abdominal Pain Medical Records Attestation: I reviewed the patient's medical records. Lab Data Attestation: I reviewed the patient's lab results. Result diagrams: 06/06/18 05:20 06/05/18 08:10 Lab Results 06/05/18 06/05/18 06/06/18 Range/Units 08:10 08:10 05:20 WBC 10.3 9.8 (4.5-11.0) X10^3/uL RBC 5.36 5.12 (4.5-5.9) X10^6/uL Hgb 14.6 13.7 (13.5-17.5) g/dL Hct 42.8 41.0 (41-53) % MCV 79.9 L 80.1 (80-100) fL MCH 27.2 26.7 (26-34) PG MCHC 34.0 33.4 (30-36) % RDW 14.4 14.7 (11.6-14.8) % Plt Count 238 224 (150-400) X10^3/uL Neut % (Auto) 67.2 69.6 (50-75) % Lymph % (Auto) 18.1 L 14.4 L (25-40) % [place] % (Auto) 9.3 12.1 (3-14) % Eos % (Auto) 4.4 H 3.1 (2-4) % Baso % (Auto) 1.0 0.8 (0-2) % Neut # (Auto) 6900 6800 (2596-1749) /uL Lymph # (Auto) 1900 1400 (7071-7380) /uL [place] # (Auto) 1000 H 1200 H (0-900) /uL Eos # (Auto) 500 H 300 (0-450) /uL Baso # (Auto) 100 100 (0-100) /uL Sodium 136 L (137-145) mmol/L Potassium 3.9 (3.4-5.1) mmol/L Chloride 104 (98-107) mmol/L Carbon Dioxide 21 L (22-32) mmol/L BUN 8 L (9-20) mg/dL Creatinine 0.70 (0.66-1.25) mg/dL Estimated GFR > 60.0 (>60) mL/min BUN/Creatinine Ratio 11.4 (6-22) Glucose 113 H (70-100) mg/dL Calcium 8.8 (8.4-10.2) mg/dL Total Bilirubin 0.5 (0.2-1.3) mg/dL AST 42 (17-59) IU/L ALT 64 (21-72) IU/L Alkaline Phosphatase 92 (38-126) U/L Total Protein 6.9 (6.3-8.2) g/dL Albumin 3.9 (3.5-5.0) g/dL Globulin 3.0 (1.7-4.1) g/dL Albumin/Globulin Ratio 1.3 (1.0-2.8) Lipase 104 (23-300) U/L Point of care testing: Point of Care Testing Glucose POC [address] scan - abdomen: Radiologist's impression: Naveed Mayen 57 M [address] [address] [address] Scan Report Signed Patient: Naveed Mayen DMR#: [id number] : [id number]:[id number] Age/Sex: 57 / MDate of Service: 06/05/18 Loc: ED Accession Number: [id number] Procedure: CT abdomen pelvis w con Ordering Provider: Wes Serrano D.O. PROCEDURE: CT ABDOMEN PELVIS W CON INDICATIONS: History of diverticulitis with increasing pain. TECHNIQUE: After the administration of intravenous contrast, 5 mm thick sections acquired from the diaphragm to the symphysis. 5 mm coronal and sagittal reformats were acquired. For radiation dose reduction, the following was used: automated exposure control, adjustment of mA and/or kV according to patient size. COMPARISON: [facility], CT, CT ABDOMEN PELVIS W CON, 05/30/2018, 14:42. FINDINGS: Image quality: Excellent. ABDOMEN: Lung bases: There is mild dependent atelectasis. Heart size is normal. Solid organs: There is hypoattenuation of the liver consistent with fatty i nfiltration. A lobulated cyst is redemonstrated in the right hepatic lobe. Gallbladder appears within normal limits without calcified gallstones. Biliary system is non dilated. Pancreas enhances normally. Spleen is normal in size and enhancement. No adrenal nodules. Kidneys demonstrate no hydronephrosis. Peritoneum and bowel: Small bowel loops demonstrate normal wall thickness and caliber. There is diverticulosis throughout the colon with associated inflammatory fat stranding and wall thickening in the proximal sigmoid colon consistent with acute diverticulitis. The findings are increased from the prior study with a new region of opacified pericolonic fat anterior to the sigmoid colon suggestive of a phlegmon without a discrete abscess collection. This extends to the adjacent urinary bladder which demonstrates associated bladder wall thickening along the left bladder dome. There is minimal associated free fluid. No macroscopic free air. Nodes and vessels: No retroperitoneal or mesenteric adenopathy by size criteria. Aorta and inferior vena cava are normal in size. Miscellaneous: No ventral hernias. PELVIS: Genitourinary: Bladder wall thickness is normal. Miscellaneous: There is a small fat-containing left inguinal hernia. No ing uinal adenopathy. Bones: No suspicious bony lesions. No vertebral body compression fractures. IMPRESSION: 1. Acute diverticulitis in the proximal sigmoid colon demonstrates progression compared to the prior study with increased fat stranding and segmental wall thickening. A new associated area of fat inflammation is demonstrated anteriorly suggestive of a phlegmon without a discrete diverticular abscess. No macroscopic free air. 2. Associated inflammatory changes of the adjacent urinary bladder suggestive of a reactive cystitis. Dictated by: Cameron Brown M.D. on 06/05/2018 at 8:38 Approved by: Cameron Brown M.D. on 06/05/2018 at 8:43 Discharge Plan Departure Patient Disposition: Admitted As Inpatient Clinical Impression: Diverticulitis Discharge Date/Time: 06/05/18 10:25 Interventions: ED Discharge Assessment Last Done: 06/05/18 10:10 Admit Date/Time: 06/05/18 09:23 Admit Provider: Anuel Starks
[2018-06-05] MEDS: HYDROMORPHONE 1 MG INJ 0.5 MG IV (09:23)
[2018-06-05] MEDS: levoFLOXacin 750 MG/150 ML PIGGYBACK 100 MG IV (09:24)
--- NOTE | 2018-06-05 10:01 | P.HP_ITS ---
History of Present Illness Date Patient Seen: 06/05/18 Time Patient Seen: 09:56 Chief complaint: Divroticulitis Narrative: 57-year-old white male who presented to this emergency department ana cristina phelps this week at [facility] with abdominal pain. He had a CT scan which demonstrated sigmoid diverticulitis. Patient was started on Cipro and Flagyl orally. However his pain has increased and he returned to the emergency department at [facility] where another CT scan shows progression of his sigmoid diverticulitis with a new phlegmon noticed in the mesenteric fat. There is stranding noted. There is no sign of perforation yet. There is no sign of an abscess. This phlegmon extends to the dome of the urinary bladder. The patient has not noticed pneumaturia[place] [id number] and is afebrile. Patient History Medical History Hypothyroid (Chronic) Social History household members: none Smoking Status: Former smoker alcohol intake: current Family & Social History Social History: household members none Safety & Behavioral: Feels Safe in Current Yes Environment Been Physically Hurt or No Threatened By a Person Tobacco & Substance use: Smoking Status Former smoker alcohol intake current alcohol intake frequency holiday/special occasion Substance Use Type does not use Meds Home Medications Medication Instructions Recorded Confirmed Type esomeprazole magnesium [Nexium] 20 mg PO PRN PRN 02/26/18 06/05/18 History levothyroxine 100 mcg PO DAILY 02/26/18 06/05/18 History ciprofloxacin HCl 500 mg PO BID #20 tab 05/30/18 06/05/18 Rx metronidazole [Flagyl] 500 mg PO TID #30 tab 05/30/18 06/05/18 Rx atenolol 25 mg PO DAILY 06/05/18 06/05/18 History atorvastatin 40 mg PO DAILY 06/05/18 06/05/18 History cetirizine 10 mg PO DAILY 06/05/18 06/05/18 History metoclopramide HCl 5 mg PO PRN PRN 06/05/18 06/05/18 History ranitidine HCl 150 mg PO BID 06/05/18 06/05/18 History Allergies Allergy/AdvReac Type Severity Reaction Status Date / Time Penicillins Allergy Verified 06/05/18 08:15 Review of Systems Review of Systems All systems reviewed & are unremarkable except as noted in HPI and below Exam Vital Signs (past 8 hours): - 06/05/18 08:08 Temperature 97.9 F Pulse Rate 75 Respiratory Rate 18 Blood Pressure 129/89 Pulse Oximetry 99 Oxygen Delivery Method Room Air Narrative Exam Narrative: Patient is afebrile alert and oriented. Lungs are clear with no rales or wheezes Heart regular rhythm no murmur Abdominal exam shows exquisite left sided abdominal tenderness no masses palpated there is some guarding but not with rigidity. There is no rebound tenderness. no masses palpated. The remaining physical is unremarkable. The patient may have a small left inguinal hernia which is not symptomatic. Objective Labs Result Diagrams: 06/05/18 08:10 06/05/18 08:10 Labs: Laboratory Results - last 24 hr 06/05/18 06/05/18 08:10 08:10 WBC 10.3 RBC 5.36 Hgb 14.6 Hct 42.8 MCV 79.9 L MCH 27.2 MCHC 34.0 RDW 14.4 Plt Count 238 Neut % (Auto) 67.2 Lymph % (Auto) 18.1 L [place] % (Auto) 9.3 Eos % (Auto) 4.4 H Baso % (Auto) 1.0 Neut # (Auto) 6900 Lymph # (Auto) 1900 [place] # (Auto) 1000 H Eos # (Auto) 500 H Baso # (Auto) 100 Sodium 136 L Potassium 3.9 Chloride 104 Carbon Dioxide 21 L BUN 8 L Creatinine 0.70 Estimated GFR > 60.0 BUN/Creatinine Ratio 11.4 Glucose 113 H Calcium 8.8 Total Bilirubin 0.5 AST 42 ALT 64 Alkaline Phosphatase 92 Total Protein 6.9 Albumin 3.9 Globulin 3.0 Albumin/Globulin Ratio 1.3 Lipase 104 Assessment & Plan Assessment & Plan narrative: Patient has progression of sigmoid diverticulitis with a phlegmon without abscess formation. This despite taking Cipro and Flagyl for the past 5 days. Patient is admitted now for intravenous antibiotic therapy. Unfortunately he is allergic to penicillin and will be treated with intravenous Flagyl and Levaquin. We will follow his exam closely. at this point no invasive procedures are indicated.
[2018-06-05 10:10] VITALS: BP 133/73; PULSE 65; RESP 16; O2SAT 100
[2018-06-05 10:40] VITALS: BP 131/85; PULSE 53; RESP 16; TEMP 36.1; O2SAT 95
[2018-06-05 10:42] VITALS: BMI 26.2
[2018-06-05] MEDS: OXYCODONE/ACETAMINOPHEN 5/325 TABLET 1 TAB PO ×3 (11:10→19:53)
[2018-06-05] MEDS: LACTATED RINGERS 1,000 ML 100 ML IV (11:10)
[2018-06-05] MEDS: metroNIDAZOLE 500 MG/100 ML PIGGYBACK 100 MG IV ×2 (11:11→17:27)
--- NOTE | 2018-06-05 14:12 | PC.NURSE ---
Admit: Late entry Arrived to room 208, transferred himself to bathroom and then into bed. Stand-by assist, steady on his feet. Tolerating clear liquids without N/V. Percocet effective for abd discomfort. BT+, flatus+. Abdomen soft, nontender. IVF per orders, site in R FA WNL. Oriented to room and call light, encouraged to make needs known. Light in reach, bed alarm active.
[2018-06-05 16:00] VITALS: BP 123/70; PULSE 60; RESP 16; TEMP 36.6; O2SAT 99
[2018-06-05 20:00] VITALS: BP 134/76; PULSE 57; RESP 16; TEMP 36.5; O2SAT 100
[2018-06-06] MEDS: metroNIDAZOLE 500 MG/100 ML PIGGYBACK 100 MG IV ×4 (00:12→18:34)
[2018-06-06 00:27] VITALS: BP 128/72; PULSE 73; RESP 16; TEMP 36.7; O2SAT 100
[2018-06-06] MEDS: OXYCODONE/ACETAMINOPHEN 5/325 TABLET 1 TAB PO ×5 (00:35→22:48)
[2018-06-06 05:42] LABS: Add Manual Diff / Slide Review NO; Basophils Absolute Auto 100 /uL (0-100); Basophils Percent Auto 0.8 % (0-2); Eosinophils Absolute Auto 300 /uL (0-450); Eosinophils Percent Auto 3.1 % (2-4); Hemoglobin 13.7 g/dL (13.5-17.5); Lymphocytes Absolute Auto 1400 /uL (1100-4500); Lymphocytes Percent Auto 14.4 % (25-40); Mean Corpuscular HGB Conc 33.4 % (30-36); Mean Corpuscular Hemoglobin 26.7 PG (26-34); Mean Corpuscular Volume 80.1 fL (80-100); Monocytes Absolute Auto 1200 /uL (0-900); Monocytes Percent Auto 12.1 % (3-14); Neutrophils Absolute Auto 6800 /uL (1500-7000); Neutrophils Percent Auto 69.6 % (50-75); Platelet Count 224 X10^3/uL (150-400); Red Blood Cell Count 5.12 X10^6/uL (4.5-5.9); Red Cell Distribution Width 14.7 % (11.6-14.8); White Blood Cell Count 9.8 X10^3/uL (4.5-11.0)
[2018-06-06 07:50] VITALS: BP 124/82; PULSE 89; RESP 18; TEMP 37.3; O2SAT 98
--- NOTE | 2018-06-06 08:58 | PM.PN.1 ---
Subjective Date Patient Seen: 06/06/18 Time Patient Seen: 08:58 Interval history: Patient has been in the hospital about 24 hours with the diagnosis of acute sigmoid diverticulitis with a phlegmon. Subjectively he feels some better than yesterday at the time of admission. He has less abdominal pain no nausea vomiting. Is not passing any stools. Exam Vital Signs (past 8 hours): Oxygen Delivery Method Room Air Oxygen Flow Rate 0 Narrative Exam Narrative: Patient remains afebrile. Abdomen is less distended. He still has some left lower quadrant abdominal tenderness but this is diminished over yesterday. There is no mass palpated. no signs of peritonitis. Objective Labs Result Diagrams: 06/06/18 05:20 06/05/18 08:10 Labs: Laboratory Results - last 24 hr 06/06/18 05:20 WBC 9.8 RBC 5.12 Hgb 13.7 Hct 41.0 MCV 80.1 MCH 26.7 MCHC 33.4 RDW 14.7 Plt Count 224 Neut % (Auto) 69.6 Lymph % (Auto) 14.4 L [place] % (Auto) 12.1 Eos % (Auto) 3.1 Baso % (Auto) 0.8 Neut # (Auto) 6800 Lymph # (Auto) 1400 [place] # (Auto) 1200 H Eos # (Auto) 300 Baso # (Auto) 100 Assessment & Plan Assessment & Plan narrative: Patient seems to have stabilized with acute sigmoid diverticulitis with a phlegmon. He is on 2 intravenous antibiotics. Levaquin and Flagyl. Patient is allergic to penicillin. This intravenous regimen appears to have stabilized the patient and we will continue this same regimen. I have advanced the patient from clear to full liquid diet. Given the fact that the patient failed oral antibiotic therapy over the past week at home. I would think the patient should remain in the hospital on intravenous antibiotic therapy for approximately 5 days. Patient has been informed that he does need a colonoscopy once this acute process has resolved. Patient seems to understand the plan. Quality VTE Deep Vein Thrombosis/Pulmonary Embolism Present on Admission: No
--- NOTE | 2018-06-06 09:01 | P.PN_ITS ---
Subjective Date Patient Seen: 06/06/18 Time Patient Seen: 08:58 Interval history: Patient has been in the hospital about 24 hours with the diagnosis of acute sigmoid diverticulitis with a phlegmon. Subjectively he feels some better than yesterday at the time of admission. He has less abdo ashlie pain no nausea vomiting. Is not passing any stools. Exam Vital Signs (past 8 hours): Oxygen Delivery Method Room Air Oxygen Flow Rate 0 Narrative Exam Narrative: Patient remains afebrile. Abdomen is less distended. He still has some left lower quadrant abdominal tenderness but this is diminished over yesterday. There is no mass palpated. no signs of peritonitis. Objective Labs Result Diagrams: 06/06/18 05:20 06/05/18 08:10 Labs: Laboratory Results - last 24 hr 06/06/18 05:20 WBC 9.8 RBC 5.12 Hgb 13.7 Hct 41.0 MCV 80.1 MCH 26.7 MCHC 33.4 RDW 14.7 Plt Count 224 Neut % (Auto) 69.6 Lymph % (Auto) 14.4 L [place] % (Auto) 12.1 Eos % (Auto) 3.1 Baso % (Auto) 0.8 Neut # (Auto) 6800 Lymph # (Auto) 1400 [place] # (Auto) 1200 H Eos # (Auto) 300 Baso # (Auto) 100 Assessment & Plan Assessment & Plan narrative: Patient seems to have stabilized with acute sigmoid diverticulitis with a phlegmon. He is on 2 intravenous antibiotics. Levaquin and Flagyl. Patient is allergic to penicillin. This intravenous regimen appe ars to have stabilized the patient and we will continue this same regimen. I have advanced the patient from clear to full liquid diet. Given the fact that the patient failed oral antibiotic therapy over the past week at home. I would think the patient should remain in the hospital on intravenous antibiotic therapy for approximately 5 days. Patient has been informed that he does need a colonoscopy once this acute process has resolved. Patient seems to understand the plan. Quality VTE Deep Vein Thrombosis/Pulmonary Embolism Present on Admission: No
--- NOTE | 2018-06-06 10:01 | CM.DANOTE ---
DCP: Case received, EMR reviewed and met with patient. Introduced self and role. Information obtained from patient regarding his baseline health. DCP template completed based upon information available. Patient is a 57 year old male who admitted yesterday morning to the care of the surgical team. PCP: Dr. Kothari. Payer: confirmed: [facility]. Patient came to hospital for symptoms of abdominal pain. Patient holds diagnosis of Sigmoid Diverticulitis Progression. He is currently being treated with IV antiobitics, and could potentially avoid surgery if this starts to resolve. Patient stated, surgery is still a possibility. Met with patient in his room. Pleasant. Stated that he just moved here recently from [place], [place]. 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 He stated that he has also lived in [place] as well, but is originally from this area. He is independent, and currently living in [place] with his cousin. He is not . P: DCP to continue to follow as plan unfolds. Should be able to go home when he is medically stable. Felicitas Nash RN/Director [place]
[2018-06-06] MEDS: LACTATED RINGERS 1,000 ML 100 ML IV ×2 (10:10→22:49)
[2018-06-06 11:10] VITALS: BP 108/82; PULSE 86; RESP 16; TEMP 37.2; O2SAT 98
[2018-06-06] MEDS: levoFLOXacin 750 MG/150 ML PIGGYBACK 100 MG IV (11:31)
[2018-06-06] MEDS: SIMETHICONE 80 MG TABLET PO (14:31)
--- NOTE | 2018-06-06 14:50 | PC.NURSE ---
PATIENT NAPPED THIS AM. PAIN UP TO 5/10 AT TIMES. TAKES PERCOCET FOR PAIN. SEE EMAR FOR DOSES GIVEN. WAS ADVANCED TO FULL LIQUIDS FOR LUNCH. AMBULATED IN HALLS AFTER LUNCH, BACK TO BED, FELT ACID REFLUX AND THEN VOMITED APPROX 100CC'S. SURGEON NOTIFIED. NEW ORDERS RECEIVED. PATIENT DOES HAVE HX OF ACID REFULX. DENIES FURTHER NAUSEA AFTER VOMITING. SEE EMAR FOR NEW ORDERS ADMINISTERED. PATIENT BACK ON CLEAR LIQUID DIETS, INSTRUCTED ON SAME.
[2018-06-06 15:56] VITALS: BP 135/84; PULSE 97; RESP 16; TEMP 36.9; O2SAT 97
[2018-06-06 20:00] VITALS: BP 120/85; PULSE 87; RESP 16; TEMP 37.1; O2SAT 97
[2018-06-07] VITALS (7 sets, daily range): BP systolic 113–148; BP diastolic 68–91; PULSE 47–98; RESP 16–18; TEMP 36.6–37.2; O2SAT 93–100
[2018-06-07] MEDS: metroNIDAZOLE 500 MG/100 ML PIGGYBACK 100 MG IV ×4 (00:12→22:38)
[2018-06-07] MEDS: ATENOLOL 25 MG TABLET PO ×2 (02:27→09:08)
--- NOTE | 2018-06-07 04:29 | PC.NURSE ---
SHIFT 11-7a) Report received, care assumed. Pt. A&Ox3. States he is comfortable at rest, but pain spikes briefly when he sits up. Hyperactive bowel tones, pt. reports positive flatus, no nausea. Hypertensive; history of HTN but home meds have not been ordered. Contacted Dr. Sotomayor, received orders to start home meds, with an additional dose of atenolol tonight.
[2018-06-07] MEDS: LEVOTHYROXINE 100 MCG TABLET PO (09:08)
[2018-06-07] MEDS: LACTOBACILLUS ACIDOPHILUS TABLET 1 EACH PO ×3 (09:08→17:31)
[2018-06-07] MEDS: SODIUM CHLORIDE 0.9% FLUSH 10 ML IV (09:09)
[2018-06-07] MEDS: OXYCODONE/ACETAMINOPHEN 5/325 TABLET 1 TAB PO (09:55)
[2018-06-07] MEDS: levoFLOXacin 750 MG/150 ML PIGGYBACK 100 MG IV (09:59)
--- NOTE | 2018-06-07 10:53 | PM.PROC.1 ---
Procedures Date/Time Date of procedure: 06/07/18 Time of procedure: 10:00 General Procedure description: Further opening/I&D of of abscess cavity, left buttock Indication: Patient ahead of anticipated discharge today was having some difficulty packing the wound for several small cavities off the main cavity that were difficult to pack. I was concerned about premature closure. Procedure: Area was sterilely prepped with Betadine. 25 mL of 1% lidocaine with epinephrine were injected into the superior and inferior aspects of the wound. elliptical incision was carried more superiorly and inferiorly to open up the pocket further and facilitate ease of packing. There is a small accessory port pocket medially that was also opened up more fully. Patient tolerated the procedure well Complications: none
--- NOTE | 2018-06-07 12:08 | PM.PN.1 ---
Subjective Date Patient Seen: 06/07/18 Time Patient Seen: 10:00 Interval history: Patient continues to feel reasonably well he however continues to have paroxysms of pain. Having bowel movements passing flatus overall feels better than yesterday. History a white blood cell count normalized to 9.8 Exam Vital Signs (past 8 hours): - 06/07/18 05:37 06/07/18 07:00 06/07/18 11:41 Temperature 98.3 F 99 F 98.7 F Pulse Rate 61 69 56 L Respiratory Rate 17 18 17 Blood Pressure 130/81 115/70 119/70 Pulse Oximetry 100 97 97 Oxygen Delivery Method Room Air Oxygen Flow Rate 0 Narrative Exam Narrative: Hip appears well Breathing comfortably on room air Strong radial pulse Abdomen moderately distended, minimally tender in the left lower quadrant and hypogastric area. no reflexive guarding, no rebound, negative bed shake test Periphery with warm well perfused Objective Labs Result Diagrams: 06/06/18 05:20 06/05/18 08:10 Assessment & Plan Assessment & Plan narrative: 57-year-old man hospital day 3. Admitted for acute diverticulitis having failed outpatient p.o. antibiotic treatment currently on antibiotic day 3 of levofloxacin and metronidazole with slow progressive improvement. Suspect will avoid surgery as improving. Plan: Continue IV antibiotics, adding probiotic Multimodal pain control Advancing diet to full liquids DVT prophylaxis with enoxaparin Will need colonoscopy approximately 3 months post discharge Quality VTE Deep Vein Thrombosis/Pulmonary Embolism Present on Admission: No
--- NOTE | 2018-06-07 12:10 | CM.DPC ---
DCP:continued: Case received, EMR reviewed and DCP: assessment/initial is noted. See that pt also has [facility] as payer in addition to [facility]. P: at this point is for IV antibiotics in hospital for about 5 days and an outpatient colonoscopy in future. DCP team will continue to follow. Expect pt will likely d/c to home when stable for same.
[2018-06-07] MEDS: ACETAMINOPHEN 325 MG TABLET 975 MG PO ×2 (12:47→18:52)
--- NOTE | 2018-06-07 12:55 | PC.NURSE ---
Day shift: This process description writer ambulated with Pt through the entire AC unit this afternoon. New meds added by MD. Talked with Pt about these new meds and Pt has hemophilia so the Lovenox was rejected by this process description writer. Will attempt to notify the MD.
[2018-06-07] MEDS: METHOCARBAMOL 500 MG TABLET PO ×2 (14:05→20:36)
[2018-06-07] MEDS: GABAPENTIN 300 MG CAPSULE PO ×2 (14:05→20:41)
[2018-06-07] MEDS: ONDANSETRON 4 MG/2 ML INJ IV (18:53)
[2018-06-07] MEDS: ATORVASTATIN 20 MG TABLET 40 MG PO (20:36)
[2018-06-08] MEDS: LACTATED RINGERS 1,000 ML 100 ML IV (01:22)
--- NOTE | 2018-06-08 03:43 | PC.NURSE ---
SHIFT 11p-7a Bedside report received, care assumed. A&Ox3. Denies pain and nausea at this time. Discussed ambulation and mobility. Abdomen tender to touch; pt declines pain meds at this time.
[2018-06-08] MEDS: OXYCODONE 5 MG/5 ML ORAL SOLUTION PO ×2 (06:15→10:08)
[2018-06-08] MEDS: LEVOTHYROXINE 100 MCG TABLET PO (06:15)
[2018-06-08] MEDS: metroNIDAZOLE 500 MG/100 ML PIGGYBACK 100 MG IV ×3 (06:15→21:17)
[2018-06-08] MEDS: ONDANSETRON 4 MG/2 ML INJ IV (06:18)
[2018-06-08] MEDS: ACETAMINOPHEN 325 MG TABLET 975 MG PO ×3 (06:35→18:39)
[2018-06-08 07:25] VITALS: BP 126/70; PULSE 54; RESP 15; TEMP 36.6; O2SAT 98
[2018-06-08] MEDS: ATENOLOL 25 MG TABLET PO (09:10)
[2018-06-08] MEDS: LACTOBACILLUS ACIDOPHILUS TABLET 1 EACH PO ×3 (09:10→16:47)
[2018-06-08] MEDS: METHOCARBAMOL 500 MG TABLET PO ×3 (09:11→21:17)
[2018-06-08] MEDS: GABAPENTIN 300 MG CAPSULE PO ×3 (09:11→21:17)
[2018-06-08] MEDS: SODIUM CHLORIDE 0.9% FLUSH 10 ML IV (09:12)
[2018-06-08] MEDS: levoFLOXacin 750 MG/150 ML PIGGYBACK 100 MG IV (09:59)
--- NOTE | 2018-06-08 10:09 | PM.PN.1 ---
Subjective Date Patient Seen: 06/08/18 Time Patient Seen: 09:00 Interval history: Continues to make improvement though fairly slow. He has been able to tolerate a full liquid diet ate oatmeal this morning without much difficulty. However unable to tolerate much yesterday evening. His pain is similar to yesterday though at times he feels that is somewhat improved as well. he continues to have bowel movements, continues to pass flatus. Overall feels minimally improved but improved none the less Exam Vital Signs (past 8 hours): - 06/08/18 07:25 Temperature 97.9 F Pulse Rate 54 L Respiratory Rate 15 Blood Pressure 126/70 Pulse Oximetry 98 Oxygen Delivery Method Room Air Oxygen Flow Rate 0 Narrative Exam Narrative: Well-appearing in no acute distress, actively following car auction on television Breathing comfortably on room air Regular rate and rhythm no murmurs gallops or rubs Abdomen is moderately distended minimally tender throughout with the exception of the left lower quadrant which is moderately tender with palpation. Less tender than on exam yesterday morning. No rebound no reflexive guarding negative head shake test Periphery warm well perfused Objective Labs Result Diagrams: 06/06/18 05:20 06/05/18 08:10 Assessment & Plan Assessment & Plan narrative: Assessment & Plan narrative: 57-year-old man hospital day 4. Admitted for acute diverticulitis having failed outpatient p.o. antibiotic treatment currently on antibiotic day 4 of levofloxacin and metronidazole with slow progressive improvement. Overall has a smoldering but improving course. 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
[2018-06-08] MEDS: LACTATED RINGERS 1,000 ML 50 ML IV (10:24)
[2018-06-08 11:25] VITALS: BP 110/69; PULSE 50; RESP 15; TEMP 36.6; O2SAT 96
[2018-06-08 13:06] VITALS: TEMP 37.9
[2018-06-08 15:25] VITALS: BP 124/79; PULSE 64; RESP 17; TEMP 36.5; O2SAT 100
--- NOTE | 2018-06-08 19:39 | PC.NURSE ---
Rain shift note: Patient is awake, alert, and pleasant. Tolerated full liquid diet for dinner, no nausea or vomiting. BM x 1 this shift. Abdomen with slight distention, states unchanged from previous days. Tender to LLQ. Medicated for pain with Oxycodone Elixir for abdominal pain, with adequate relief.
[2018-06-08 19:40] VITALS: BP 124/77; PULSE 59; RESP 17; TEMP 36.7; O2SAT 99
[2018-06-08] MEDS: OXYCODONE 5 MG/5 ML ORAL SOLUTION 10 MG PO (19:51)
[2018-06-08] MEDS: ATORVASTATIN 20 MG TABLET 40 MG PO (21:17)
[2018-06-08 21:33] VITALS: O2SAT 97
[2018-06-09] VITALS (7 sets, daily range): BP systolic 122–151; BP diastolic 76–95; PULSE 64–81; RESP 16–18; TEMP 36.9–37.8; O2SAT 93–100
--- NOTE | 2018-06-09 | DI.CT.S_ITS ---
PROCEDURE: CT ABDOMEN PELVIS W CON INDICATIONS: Pt w diverticulitis, interval development of abscess? TECHNIQUE: After the administration of oral and intravenous contrast, 5 mm thick sections acquired from the diaphragms to the symphysis. 5 mm thick coronal and sagittal reformats were performed. For radiation dose reduction, the following was used: automated exposure control, adjustment of mA and/or kV according to patient size. COMPARISON: [facility], CT, CT ABDOMEN PELVIS W CON, 06/05/2018, 8:24. FINDINGS: Image quality: Excellent. ABDOMEN: Lung bases: Lung bases are clear. Heart size is normal. Solid organs: Liver is normal in size and enhancement. Gallbladder is unremarkable. Biliary system is non-dilated. Pancreas enhances normally. Spleen is normal in size and enhancement. No adrenal nodules. Kidneys are normal in size and enhancement, without hydronephrosis. Peritoneum and bowel: Interval worsening of diverticulitis of the sigmoid colon with significant interval increase in inflammatory change in the adjacent fat. Very tiny peridiverticular abscess measuring 6 mm. No drainable abscess cavity. No free air. Nodes and vessels: No retroperitoneal or mesenteric adenopathy. Aorta and inferior vena cava are normal in caliber. Miscellaneous: No ventral hernias. PELVIS: Genitourinary: Diffuse bladder wall thickening again noted. Miscellaneous: Small left inguinal hernia containing fat. Bones: No suspicious bony lesions. No vertebral body compression fractures. IMPRESSION: 1. Interval worsening of sigmoid diverticulitis with interval increase in surrounding inflammatory change and development of a tiny, 6 mm. Diverticular abscess. 2. Continued bladder wall thickening, which may be reactive. 3. Incidental left inguinal hernia containing fat. Dictated by: Nabil Hamm M.D. on 06/09/2018 at 13:40 Approved by: Nabil Hamm M.D. on 06/09/2018 at 13:44
[2018-06-09] MEDS: ACETAMINOPHEN 325 MG TABLET 975 MG PO ×4 (00:22→23:33)
--- NOTE | 2018-06-09 01:10 | PC.NURSE ---
2300- Pt admit for acute diverticulitis; not a surgical candidate at this time, medically managing. LR running as ordered into R forearm; tolerating full liquid diet at this time. Stomach round/firm; active bowel sounds. Pt moving SBA w/ IV pole in the room. 0015- Po tylenol given as ordered; CO 5/10 pain.
[2018-06-09] MEDS: LEVOTHYROXINE 100 MCG TABLET PO (05:53)
[2018-06-09] MEDS: metroNIDAZOLE 500 MG/100 ML PIGGYBACK 100 MG IV (05:53)
[2018-06-09] MEDS: OXYCODONE 5 MG/5 ML ORAL SOLUTION 10 MG PO ×2 (07:34→18:14)
[2018-06-09] MEDS: GABAPENTIN 300 MG CAPSULE PO ×3 (07:34→20:06)
[2018-06-09] MEDS: METHOCARBAMOL 500 MG TABLET PO ×3 (07:34→20:06)
[2018-06-09] MEDS: LACTOBACILLUS ACIDOPHILUS TABLET 1 EACH PO ×3 (07:37→17:29)
[2018-06-09] MEDS: ATENOLOL 25 MG TABLET PO (07:43)
--- NOTE | 2018-06-09 10:02 | PC.NURSE ---
Naveed states he feels more bloated this AM and is experiencing more abdominal pain than previously. Given liquid oxycodone for pain mgmt. with good results. Taking in sm. amts. full liq. diet. VSS. Miralax held during med administration due to pt. stating he is having loose BMs.
--- NOTE | 2018-06-09 10:17 | PC.NURSE ---
Patient refusing shower at this time- prefers to shower in the afternoon/evening. Will offer later today
[2018-06-09 10:34] LABS: Add Manual Diff / Slide Review NO; Basophils Absolute Auto 100 /uL (0-100); Basophils Percent Auto 0.7 % (0-2); Eosinophils Absolute Auto 300 /uL (0-450); Eosinophils Percent Auto 2.8 % (2-4); Hematocrit 38.5 % (41-53); Hemoglobin 12.5 g/dL (13.5-17.5); Lymphocytes Absolute Auto 1000 /uL (1100-4500); Lymphocytes Percent Auto 10.5 % (25-40); Mean Corpuscular HGB Conc 32.5 % (30-36); Mean Corpuscular Hemoglobin 26.4 PG (26-34); Mean Corpuscular Volume 81.1 fL (80-100); Monocytes Absolute Auto 700 /uL (0-900); Monocytes Percent Auto 7.4 % (3-14); Neutrophils Absolute Auto 7700 /uL (1500-7000); Neutrophils Percent Auto 78.6 % (50-75); Platelet Count 233 X10^3/uL (150-400); Red Blood Cell Count 4.75 X10^6/uL (4.5-5.9); Red Cell Distribution Width 14.5 % (11.6-14.8); White Blood Cell Count 9.8 X10^3/uL (4.5-11.0)
[2018-06-09 10:46] LABS: BUN Creatinine Ratio 2.9 (6-22); Blood Urea Nitrogen 2 mg/dL (9-20); Calcium 8.1 mg/dL (8.4-10.2); Carbon Dioxide 24 mmol/L (22-32); Chloride 103 mmol/L (98-107); Estimated Glomerular Filt Rate > 60.0 mL/min (>60); Glucose 188 mg/dL (70-100); HEMOLYSIS < 15 (0-50); Potassium 3.5 mmol/L (3.4-5.1); Sodium 136 mmol/L (137-145)
--- NOTE | 2018-06-09 10:56 | P.PN_ITS ---
Subjective Date Patient Seen: 06/09/18 Time Patient Seen: 09:00 Interval history: Continues to feel poorly with paroxisms of pain in the LLQ. Becoming increasingly fustrated with lack of progress. continues to pass flatus and have BMs. Tolerates small amounts of food like oatmeal. Exam Vital Signs (past 8 hours): - 06/09/18 05:57 06/09/18 07:59 Temperature 98.7 F 98.5 F Pulse Rate 64 67 Respiratory Rate 16 18 Blood Pressure 141/81 H 151/89 H Pulse Oximetry 98 99 Oxygen Delivery Method Room Air Oxygen Flow Rate 0 Narrative Exam Narrative: NAD breathing comforteably RRR Abd mild distention, continued moderate tenderness in LLQ. No rebound Periphery warm Objective Labs Result Diagrams: 06/09/18 10:20 06/09/18 10:20 Labs: Laboratory Results - last 24 hr 06/09/18 06/09/18 10:20 10:20 WBC 9.8 RBC 4.75 Hgb 12.5 L Hct 38.5 L MCV 81.1 MCH 26.4 MCHC 32.5 RDW 14.5 Plt Count 233 Neut % (Auto) 78.6 H Lymph % (Auto) 10.5 L [place] % (Auto) 7.4 Eos % (Auto) 2.8 Baso % (Auto) 0.7 Neut # (Auto) 7700 H Lymph # (Auto) 1000 L [place] # (Auto) 700 Eos # (Auto) 300 Baso # (Auto) 100 Sodium 136 L Potassium 3.5 Chloride 103 Carbon Dioxide 24 BUN 2 L Creatinine 0.70 Estimated GFR > 60.0 BUN/Creatinine Ratio 2.9 L Glucose 188 H Calcium 8.1 L Assessment & Plan Assessment & Plan narrative: 57-year-old man hospital day 5. Admitted for acute diverticulitis having failed outpatient p.o. antibiotic treatment currently on antibiotic day 5 of levofloxacin and metronidazole. No longer making clear improvement. Has now been on 10days of total abx - initially PO. Continues to have ongoing pain in LLQ and difficulty advancing diet. Not making significant head way in last few days with abx. May need non elective surgery. Of note has hemophilia a with moderate factor activity by pt Hx Plan: In anticipation of possibly surgery Repeat CT imaging today to asses for interval development of drainable abscess Repeat labs Obtaining Factor VIII levels and hematology records from [place] - May need to order factor VIII. Will discuss with pharmacy. If become emergent blood back has cryo. Empiric trial of meropenum. Quality VTE Deep Vein Thrombosis/Pulmonary Embolism Present on Admission: No
[2018-06-09] MEDS: LACTATED RINGERS 1,000 ML 50 ML IV (11:16)
[2018-06-09] MEDS: MEROPENEM 1 GM/50 ML PIGGYBACK IV ×2 (11:22→20:01)
--- NOTE | 2018-06-09 15:36 | CM.DPC ---
DCP Cont: Patient may need non-elective surgery. According to latest surgeon's note, not making progress with current antibiotics. Patient has had total of 10 days of antibiotics, including oral before hospital admit. Patient may need to have surgery secondary to abscess. P: DCP to continue to follow patient as plan unfolds. Patient could be here for several more days if surgery is anticipated. Will follow for any needs post-op. Felicitas Nash RN/Microfilmer
--- NOTE | 2018-06-09 17:19 | P.CONONC_ITS ---
History of Present Illness - Data of Consult Consult date: 06/09/18 Primary Care Provider: Damaris Kothari MD - Consult Narrative Narrative: Naveed Mayen is a 57 year old male whom I was asked to see for history of hemophilia A. The patient is currently admitted to the hospital with abdominal pain and diverticulitis. He was seen initially about a week ago. He was treated with oral antibiotics however his symptoms did not improve. He is currently receiving IV antibiotics. A CT scan done today showed progression of his diverticulitis as well as a small diverticular abscess. He may require surgical treatment. The patient describes a history of mild hemophilia A. He reports that he had 1st developed bleeding problems at the time of a dental extraction when he was about 3 years old. The patient tells me that he had last rights but did pull-through. He did well until his early 20s. He then had another dental extraction with some heavy bleeding. he tells me that he was evaluated by a strip machine operator in found to have hemophilia a. Was apparently very mild case. He has never had any other bleeding complications. He has never required any transfusions or factor replacement. He has had several other surgeries since then. He has had mesh hernia repair. He had surgical repair of shoulder tendon and in elbow tendon without any abnormal bleeding. His past medical history is otherwise notable for hypothyroidism. He has had recent diverticulitis. He has had prior tendon repairs. He has otherwise been quite healthy. 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 He has a distant history of smoking but quit many years ago. He does have occasional alcohol use. He is . Family history is notable for brother who had colostomy and bilateral lower extremity amputations. CC: Anuel Starks MD - Pain Details Pain Intensity: 4 Pain Scale Used: Numeric (1 - 10) Home Medications and Allergies Home Medications Medication Instructions Recorded Confirmed Type esomeprazole magnesium [Nexium] See Rx Instructions .ROUTE .COMPLEX 02/26/18 06/05/18 History levothyroxine 100 mcg PO DAILY 02/26/18 06/05/18 History ciprofloxacin HCl 500 mg PO BID #20 tab 05/30/18 06/05/18 Rx metronidazole [Flagyl] 500 mg PO TID #30 tab 05/30/18 06/05/18 Rx atenolol 25 mg PO DAILY 06/05/18 06/05/18 History atorvastatin 40 mg PO DAILY 06/05/18 06/05/18 History cetirizine 10 mg PO DAILY 06/05/18 06/05/18 History metoclopramide HCl 5 mg PO PRN PRN 06/05/18 06/05/18 History ranitidine HCl 150 mg PO BID 06/05/18 06/05/18 History Allergies Allergy/AdvReac Type Severity Reaction Status Date / Time Penicillins Allergy Verified 06/05/18 08:15 Medical History - Medical, Surgical, Family History Medical History: Medical History (Updated 06/09/18 @ 17:22 by Hipolito Thacker MD) Acid reflux Colon polyps HTN (hypertension) Hypercholesteremia Hypothyroid - Social History Smoking Status: Former smoker Review of Systems Gastrointestinal: change in appetite, abdominal pain Musculoskeletal: no pain, no swelling Integumentary: no bleeding or bruising Exam Vital signs: Vital Signs Temp Pulse Resp BP Pulse Ox 06/09/18 15:40 99.5 F 65 18 123/76 100 06/09/18 13:00 98.6 F 81 16 139/78 97 06/09/18 07:59 98.5 F 67 18 151/89 H 99 06/09/18 05:57 98.7 F 64 16 141/81 H 98 06/09/18 00:00 98.5 F 74 16 122/76 93 06/08/18 21:33 97 06/08/18 19:40 98.1 F 59 L 17 124/77 99 Intake and Output 06/09/18 06/09/18 06/09/18 07:59 15:59 23:59 Intake Total 1100 / 1915 815 / 1915 Output Total 1300 / 1300 Balance -200 / 615 815 / 615 Intake: IV 1100 / 1150 50 / 1150 Lactated Ringers 1,000 ml @ 50 1000 / 1000 mls/hr IV CONT LUCY Rx#:[id number] Meropenem 1 gm In 50 ml @ 100 50 / 50 mls/hr IV Q8H LUCY Rx#:[id number] metroNIDAZOLE 500 mg In 100 ml 100 / 100 @ 100 mls/hr IV Q8HR LUCY Rx#: [id number] Oral 765 / 765 Output: Urine 1300 / 1300 Other: Percent Meal Consumed 75% Stool Size Moderate # Unmeasured Voids 1 # Bowel Movements 2 Weight 60 kg Patient Weight 06/09/18 23:59 Weight 60 kg - Constitutional positive no acute distress, positive average body habitus - Routine HEENT Exam Head: Present: normocephalic, atraumatic Eye: Present: EOMI, PERRL. Absent: conjunctival icterus ENT: Present: mucous membranes moist, oropharynx clear - Routine Neck Exam Present: supple. Absent: lymphadenopathy, thyromegaly - Routine Respiratory Exam Present: Clear to auscultation bilaterally. Absent: rales, wheezes - Routine Cardiovascular Exam Present: RRR, S1, S2. Absent: murmur - Routine Abdominal Exam Present: soft, normoactive bowel sounds, tenderness Comments: He has some tenderness in the left mid and lower abdomen. - Routine Extremities Exam Absent: cyanosis, clubbing, edema - Routine Skin Exam Present: intact. Absent: petechiae Comments: There is no stigmata of recent bleeding. - Routine Neurological Exam Present: alert, oriented X3 - Routine Psychiatric Exam Present: normal affect, normal thought process Results - Labs Laboratory Last Values WBC 9.8 X10^3/uL (4.5-11.0) 06/09/18 10:20 RBC 4.75 X10^6/uL (4.5-5.9) 06/09/18 10:20 Hgb 12.5 g/dL (13.5-17.5) L 06/09/18 10:20 Hct 38.5 % (41-53) L 06/09/18 10:20 MCV 81.1 fL (80-100) 06/09/18 10:20 MCH 26.4 PG (26-34) 06/09/18 10:20 MCHC 32.5 % (30-36) 06/09/18 10:20 RDW 14.5 % (11.6-14.8) 06/09/18 10:20 Plt Count 233 X10^3/uL (150-400) 06/09/18 10:20 Neut % (Auto) 78.6 % (50-75) H 06/09/18 10:20 Lymph % (Auto) 10.5 % (25-40) L 06/09/18 10:20 [place] % (Auto) 7.4 % (3-14) 06/09/18 10:20 Eos % (Auto) 2.8 % (2-4) 06/09/18 10:20 Baso % (Auto) 0.7 % (0-2) 06/09/18 10:20 Neut # (Auto) 7700 /uL (1643-3117) H 06/09/18 10:20 Lymph # (Auto) 1000 /uL (1470-4161) L 06/09/18 10:20 [place] # (Auto) 700 /uL (0-900) 06/09/18 10:20 Eos # (Auto) 300 /uL (0-450) 06/09/18 10:20 Baso # (Auto) 100 /uL (0-100) 06/09/18 10:20 Sodium 136 mmol/L (137-145) L 06/09/18 10:20 Potassium 3.5 mmol/L (3.4-5.1) 06/09/18 10:20 Chloride 103 mmol/L (98-107) 06/09/18 10:20 Carbon Dioxide 24 mmol/L (22-32) 06/09/18 10:20 BUN 2 mg/dL (9-20) L 06/09/18 10:20 Creatinine 0.70 mg/dL (0.66-1.25) 06/09/18 10:20 Estimated GFR > 60.0 mL/min (>60) 06/09/18 10:20 BUN/Creatinine Ratio 2.9 (6-22) L 06/09/18 10:20 Glucose 188 mg/dL (70-100) H 06/09/18 10:20 Calcium 8.1 mg/dL (8.4-10.2) L 06/09/18 10:20 Total Bilirubin 0.5 mg/dL (0.2-1.3) 06/05/18 08:10 AST 42 IU/L (17-59) 06/05/18 08:10 ALT 64 IU/L (21-72) 06/05/18 08:10 Alkaline Phosphatase 92 U/L (38-126) 06/05/18 08:10 Total Protein 6.9 g/dL (6.3-8.2) 06/05/18 08:10 Albumin 3.9 g/dL (3.5-5.0) 06/05/18 08:10 Globulin 3.0 g/dL (1.7-4.1) 06/05/18 08:10 Albumin/Globulin Ratio 1.3 (1.0-2.8) 06/05/18 08:10 Lipase 104 U/L (23-300) 06/05/18 08:10 Assessment and Plan (1) Hemophilia A Current visit: Yes Status: Acute 57-year-old man with self-described history of mild hemophilia a. His bleeding history is not very impressive and he has had prior surgery without factor support without bleeding complications. He does have a factor 8 level pending. However, it may take several days for the results to come back. Will try to obtain his previous levels from his strip machine operator in [place]. If his factor level is close to normal, he may be able to go through abdominal surgery with no specific treatment. If they are mild to moderately low, DDAVP could be considered preoperatively. If on the other hand, his factor level is 20% or less at baseline, he would need factor replacement. Given the delay in laboratory testing here, it may make sense to transfer him to [place] if he will need factor replacement. His mild bleeding history suggests that this might perhaps be von Willebrand's disease. Hopefully his records from [place] will elucidate this further.
[2018-06-09] MEDS: ATORVASTATIN 20 MG TABLET 40 MG PO (20:06)
--- NOTE | 2018-06-10 00:05 | PC.NURSE ---
2300- Admit for diverticulitis, medically managing at this time. IV abx--Meropenem w/ LR running as ordered into peripheral IV. Tolerating full liquid diet at this time with loose stools noted & MD aware. Abdomen hard & firm. 0015- Slight temp of 100.1 F orally. PO tylenol given as scheduled; will reasses. Moving independently in room.
[2018-06-10] MEDS: MEROPENEM 1 GM/50 ML PIGGYBACK IV ×3 (04:29→20:21)
[2018-06-10 04:36] VITALS: BP 129/78; PULSE 71; RESP 16; TEMP 36.6; O2SAT 98
[2018-06-10] MEDS: ACETAMINOPHEN 325 MG TABLET 975 MG PO ×3 (06:43→18:45)
[2018-06-10] MEDS: LEVOTHYROXINE 100 MCG TABLET PO (06:43)
[2018-06-10 09:20] VITALS: BP 133/95; PULSE 81; RESP 16; TEMP 36.7; O2SAT 98
[2018-06-10] MEDS: METHOCARBAMOL 500 MG TABLET PO ×3 (09:43→20:21)
[2018-06-10] MEDS: GABAPENTIN 300 MG CAPSULE PO ×3 (09:43→20:21)
[2018-06-10] MEDS: ATENOLOL 25 MG TABLET PO (09:43)
[2018-06-10] MEDS: LACTOBACILLUS ACIDOPHILUS TABLET 1 EACH PO ×3 (09:44→16:36)
[2018-06-10] MEDS: SODIUM CHLORIDE 0.9% FLUSH 10 ML IV ×2 (09:44)
[2018-06-10] MEDS: LACTATED RINGERS 1,000 ML 50 ML IV (10:45)
[2018-06-10 11:45] VITALS: BP 128/91; PULSE 67; RESP 16; TEMP 36.5; O2SAT 97
--- NOTE | 2018-06-10 12:08 | CM.DPC ---
DCP Cont: Checked in with patient. Pleasant. He was sitting upright in his bed having his lunch. Verified with him that he is staying with his cousin here in town. He stated that she was just here visiting with him. He stated that he continues to have abdominal discomfort at times. Stated, it was severe yesterday. He anticipates to be here for a few more days. P: DCP to continue to follow closely, and be available for any resources that patient may need. Felicitas Nash RN/Care Management.
[2018-06-10 15:25] VITALS: BP 115/79; PULSE 73; RESP 18; TEMP 36.9; O2SAT 100
[2018-06-10] MEDS: OXYCODONE 5 MG/5 ML ORAL SOLUTION 10 MG PO (17:07)
--- NOTE | 2018-06-10 17:07 | PM.PN.1 ---
Subjective Date Patient Seen: 06/10/18 Time Patient Seen: 14:00 Interval history: Events: Repeated CT imaging yesterday - no drainable collections, sigmoid colon inflammation mild degree worse than on prior CT scan 5 days ago. Significant discussion had between myself and Hematology - the patient has hemophilia A (mild). Outside records show his factor VIII levels ranged between 19-58%. I have a major surgery generally 1 factor levels to 100% and maintained there for at least a week to 2 weeks. At this facility with we do not have recombinant factor VIII though can procure. However we have limited ability to test in a timely manner with turnaround taking in the neighborhood of 5 days. Hence do not have the ability to titrate up factor levels to a safe operative range. Patient was empirically started on meropenem yesterday - as all his previous antibiotic regimens have been a fluoroquinolone with metronidazole, penicillin allergy present. this morning he reported that for the 1st time he felt his pain was significantly improving after approximately 24 hours on meropenem. Exam Vital Signs (past 8 hours): - 06/10/18 09:20 06/10/18 11:45 06/10/18 15:25 Temperature 98.0 F 97.7 F 98.4 F Pulse Rate 81 67 73 Respiratory Rate 16 16 18 Blood Pressure 133/95 H 128/91 H 115/79 Pulse Oximetry 98 97 100 Oxygen Delivery Method Room Air Oxygen Flow Rate 0 Narrative Exam Narrative: Overall well-appearing man, no acute distress, Breathing comfortably on room air Regular rate and rhythm Abdomen is mildly distended, remarkably it is significantly softer and less tender than on prior exam. Am able to push with some force in the left lower quadrant without marked pain. no rebound, no reflexive guarding, negative bed shake test Periphery warm and well perfused Objective Labs Result Diagrams: 06/09/18 10:20 06/09/18 10:20 Assessment & Plan Assessment & Plan narrative: 57-year-old man hospital day 6. Admitted for acute diverticulitis having failed outpatient p.o. antibiotic treatment currently on IV antibiotic day 6 (levofloxacin and metronidazole x5, Meriopenum x1 ) Total of 11 day on abx including prior po cipro/metro. Today is the 1st day in my care that he has made a significant improvement clinically with a softer less tender abdomen. Has remained afebrile and is without a leukocytosis on labs yesterday. Had significant discussion with the patient - I explained that we are unable to offer him a safe colectomy here with the challenges around factor 8 repletion and I recommended we start the process of transferring him to a center that can provide good perioperative hemophiliac support. Patient was very reluctant to be transferred - given the improvement of the last 24 hours he would like to remain at [facility], to see if the improvement on meropenem continues to persist. Given that he is nontoxic and has made some progress i am willing to support this desire, furthermore - performing a colectomy would be challenging given his prior trauma laparotomy and presumed hostile abdomen as well as a large 20 cm x 20 cm piece of laparoscopically placed anterior abdominal mesh - for ukrainian cheese midline ventral hernia following trauma laparotomy. Plan: Ongoing empiric trial of meropenem, probiotic Would not perform semi elective surgery at this facility - is appears to be worsening ->transfer In case of emergency patient is DDAVP responder, we have cryoprecipitate which contains a sizable amount of factor 8 in house. Continue full liquid diet Continued to ambulate Quality VTE Deep Vein Thrombosis/Pulmonary Embolism Present on Admission: No
--- NOTE | 2018-06-10 17:15 | P.PN_ITS ---
Subjective Date Patient Seen: 06/10/18 Time Patient Seen: 14:00 Interval history: Events: Repeated CT imaging yesterday - no drainable collections, sigmoid colon inflammation mild degree worse than on prior CT scan 5 days ago. Significant discussion had between myself and Hematology - the patient has hemophilia A (mild). Outside records show his factor VIII levels ranged between 19-58%. I have a major surgery generally 1 factor levels to 100% and maintained there for at least a week to 2 weeks. At this facility with we do not have recombinant factor VIII though can procure. However we have limited ability to test in a timely manner with turnaround taking in the neighborhood of 5 days. Hence do not have the ability to titrate up factor levels to a safe operative range. Patient was empirically started on meropenem yesterday - as all his previous antibiotic regimens have been a fluoroquinolone with metronidazole, penicillin allergy present. this morning he reported that for the 1st time he felt his pain was significantly improving after approximately 24 hours on meropenem. Exam Vital Signs (past 8 hours): - 06/10/18 09:20 06/10/18 11:45 06/10/18 15:25 Temperature 98.0 F 97.7 F 98.4 F Pulse Rate 81 67 73 Respiratory Rate 16 16 18 Blood Pressure 133/95 H 128/91 H 115/79 Pulse Oximetry 98 97 100 Oxygen Delivery Method Room Air Oxygen Flow Rate 0 Narrative Exam Narrative: Overall well-appearing man, no acute distress, Breathing comfortably on room air Regular rate and rhythm Abdomen is mildly distended, remarkably it is significantly softer and less tender than on prior exam. Am able to push with some force in the left lower quadrant without marked pain. no rebound, no reflexive guarding, negative bed shake test Periphery warm and well perfused Objective Labs Result Diagrams: 06/09/18 10:20 06/09/18 10:20 Assessment & Plan Assessment & Plan narrative: 57-year-old man hospital day 6. Admitted for acute diverticulitis having failed outpatient p.o. antibiotic treatment currently on IV antibiotic day 6 (levofloxacin and metronidazole x5, Meriopenum x1 ) Total of 11 day on abx including prior po cipro/metro. Today is the 1st day in my care that he has made a significant improvement clinically with a softer less tender abdomen. Has remained afebrile and is wit hout a leukocytosis on labs yesterday. Had significant discussion with the patient - I explained that we are unable to offer him a safe colectomy here with the challenges around factor 8 repletion an d I recommended we start the process of transferring him to a center that can provide good perioperative hemophiliac support. Patient was very reluctant to be transferred - given the improvement of the last 24 hours he would like to remain at [facility], to see if the improvement on meropenem continues to persist. Given that he is nontoxic and has made some progress i am willing to support this desire, furthermore - performing a colectomy would be challenging given his prior trauma laparotomy and presumed hostile abdomen as well as a large 20 cm x 20 cm piece of laparoscopically placed anterior abdominal mesh - for martiniquais cheese midline ventral hernia following trauma laparotomy. Plan: Ongoing empiric trial of meropenem, probiotic Would not perform semi elective surgery at this facility - is appears to be worsening ->transfer In case of emergency patient is DDAVP responder, we have cryoprecipitate which contains a sizable amount of factor 8 in house. Continue full liquid diet Continued to ambulate Quality VTE Deep Vein Thrombosis/Pulmonary Embolism Present on Admission: No
[2018-06-10 19:22] VITALS: BP 145/84; PULSE 79; RESP 18; TEMP 36.9; O2SAT 96
[2018-06-10] MEDS: ATORVASTATIN 20 MG TABLET 40 MG PO (20:21)
[2018-06-11] VITALS (7 sets, daily range): BP systolic 108–134; BP diastolic 56–81; PULSE 59–85; RESP 16–18; TEMP 36.6–37.6; O2SAT 96–99
[2018-06-11] MEDS: SIMETHICONE 80 MG TABLET PO ×3 (00:01→20:15)
[2018-06-11] MEDS: ACETAMINOPHEN 325 MG TABLET 975 MG PO ×4 (00:01→23:34)
[2018-06-11] MEDS: MEROPENEM 1 GM/50 ML PIGGYBACK IV (04:28)
[2018-06-11] MEDS: LEVOTHYROXINE 100 MCG TABLET PO (06:45)
[2018-06-11] MEDS: LACTATED RINGERS 1,000 ML 50 ML IV (07:14)
[2018-06-11] MEDS: LACTOBACILLUS ACIDOPHILUS TABLET 1 EACH PO ×2 (07:15→17:06)
[2018-06-11] MEDS: GABAPENTIN 300 MG CAPSULE PO ×3 (08:48→20:15)
[2018-06-11] MEDS: METHOCARBAMOL 500 MG TABLET PO ×3 (08:48→20:15)
[2018-06-11] MEDS: SODIUM CHLORIDE 0.9% FLUSH 10 ML IV (08:48)
[2018-06-11 09:02] LABS: Add Manual Diff / Slide Review NO; Basophils Absolute Auto 0 /uL (0-100); Basophils Percent Auto 0.4 % (0-2); Eosinophils Absolute Auto 300 /uL (0-450); Eosinophils Percent Auto 2.5 % (2-4); Hematocrit 40.1 % (41-53); Hemoglobin 12.9 g/dL (13.5-17.5); Lymphocytes Absolute Auto 1300 /uL (1100-4500); Lymphocytes Percent Auto 10.3 % (25-40); Mean Corpuscular HGB Conc 32.2 % (30-36); Mean Corpuscular Hemoglobin 26.1 PG (26-34); Monocytes Absolute Auto 1200 /uL (0-900); Monocytes Percent Auto 9.1 % (3-14); Neutrophils Absolute Auto 10000 /uL (1500-7000); Neutrophils Percent Auto 77.7 % (50-75); Platelet Count 279 X10^3/uL (150-400); Red Blood Cell Count 4.95 X10^6/uL (4.5-5.9); Red Cell Distribution Width 14.2 % (11.6-14.8); White Blood Cell Count 12.8 X10^3/uL (4.5-11.0)
[2018-06-11] MEDS: MEROPENEM 1 GM in SODIUM CHLORIDE 0.9% 100 ML 200 ML IV ×2 (12:10→20:12)
[2018-06-11] MEDS: ATENOLOL 25 MG TABLET PO (12:31)
--- NOTE | 2018-06-11 12:45 | CM.DPC ---
DCP: continued: case received and EMR for last few days reviewed. See that Dr. Thacker has consulted with General Surgeon team re the hx Hemophilia A and that decision as of last surgeon note of yesterday if to continue medical management at , at request of pt and transfer if pt worsens to a higher of specialty care facililty. P: follow prn as POC unfolds.
[2018-06-11 17:49] LABS: Factor VIII Activity, Clotting 28 % normal (50-180)
[2018-06-11 18:17] LABS: BUN Creatinine Ratio 7.1 (6-22); Blood Urea Nitrogen 5 mg/dL (9-20); Calcium 8.1 mg/dL (8.4-10.2); Carbon Dioxide 27 mmol/L (22-32); Chloride 100 mmol/L (98-107); Estimated Glomerular Filt Rate > 60.0 mL/min (>60); Glucose 149 mg/dL (70-100); HEMOLYSIS < 15 (0-50); Potassium 3.7 mmol/L (3.4-5.1); Sodium 135 mmol/L (137-145)
[2018-06-11] MEDS: ATORVASTATIN 20 MG TABLET 40 MG PO (20:15)
--- NOTE | 2018-06-11 21:26 | PM.PN.1 ---
Subjective Date Patient Seen: 06/11/18 Time Patient Seen: 21:00 Interval history: Patient was seen about 7:30 a.m. and again this evening. He has had a good day. He said he has been passing flatus in his stomach does not feel as tight. He says it did hurt when the gas went through. When he lays on 1 side is pain is a little better than the other side at max is out and about 4/10. He is passing flatus regularly and had 1 very small bowel movement. Exam Vital Signs (past 8 hours): - 06/11/18 16:00 06/11/18 20:00 Temperature 99.7 F H 98.3 F Pulse Rate 69 65 Respiratory Rate 18 16 Blood Pressure 126/80 128/76 Pulse Oximetry 99 97 Oxygen Delivery Method Room Air Oxygen Flow Rate 0 Narrative Exam Narrative: Lungs are clear to auscultation no rales or rhonchi. Good effort. Abdomen much less distended than yesterday. It is soft. There is no guarding. Some vague tenderness in the left abdomen. Objective Labs Result Diagrams: 06/11/18 08:15 06/11/18 17:44 Labs: Laboratory Results - last 24 hr 06/09/18 06/11/18 06/11/18 10:20 08:15 17:44 WBC 12.8 H RBC 4.95 Hgb 12.9 L Hct 40.1 L MCV 81.0 MCH 26.1 MCHC 32.2 RDW 14.2 Plt Count 279 Neut % (Auto) 77.7 H Lymph % (Auto) 10.3 L [place] % (Auto) 9.1 Eos % (Auto) 2.5 Baso % (Auto) 0.4 Neut # (Auto) 73842 H Lymph # (Auto) 1300 [place] # (Auto) 1200 H Eos # (Auto) 300 Baso # (Auto) 0 Factor VIII Activity 28 L Sodium 135 L Potassium 3.7 Chloride 100 Carbon Dioxide 27 BUN 5 L Creatinine 0.70 Estimated GFR > 60.0 BUN/Creatinine Ratio 7.1 Glucose 149 H Calcium 8.1 L Assessment & Plan Assessment & Plan narrative: Patient is doing a little better related to his diverticulitis. Clinically he is slowly improving. White blood cell count is 12.6. Has began to have bowel function through the inflamed area. we will continue broad-spectrum antibiotics and limit p.o. intake. Encourage ambulation. Patient is a hemophiliac so will avoid Lovenox. Repeat labs in a.m.. Quality VTE Deep Vein Thrombosis/Pulmonary Embolism Present on Admission: No
[2018-06-11] MEDS: OXYCODONE IR 5 MG TABLET PO (23:32)
[2018-06-12] MEDS: LACTATED RINGERS 1,000 ML 100 ML IV ×2 (01:39→14:05)
[2018-06-12] MEDS: OXYCODONE IR 5 MG TABLET PO ×4 (03:27→21:35)
[2018-06-12] MEDS: MEROPENEM 1 GM in SODIUM CHLORIDE 0.9% 100 ML 200 ML IV ×3 (03:28→20:47)
[2018-06-12 05:47] VITALS: BP 135/80; PULSE 66; RESP 16; TEMP 36.9; O2SAT 100
--- NOTE | 2018-06-12 05:48 | PC.NURSE ---
BANK CONSULTANT note: Patient asked repeated questions about my living situation, where I lived, if I knew of any place with cheap housing, if I needed a roommate. Patient is very concerned about having a place to live, talking his financial details with me (how many bills he has to pay). I said I didn't know anything about low cost housing but to check with the [place] roomlinx commission. Let RN know.
[2018-06-12 07:38] LABS: Add Manual Diff / Slide Review NO; Basophils Absolute Auto 100 /uL (0-100); Basophils Percent Auto 0.7 % (0-2); Eosinophils Absolute Auto 600 /uL (0-450); Eosinophils Percent Auto 4.7 % (2-4); Hematocrit 40.6 % (41-53); Hemoglobin 13.3 g/dL (13.5-17.5); Lymphocytes Absolute Auto 1700 /uL (1100-4500); Lymphocytes Percent Auto 14.6 % (25-40); Mean Corpuscular HGB Conc 32.8 % (30-36); Mean Corpuscular Hemoglobin 26.4 PG (26-34); Mean Corpuscular Volume 80.6 fL (80-100); Monocytes Absolute Auto 1200 /uL (0-900); Monocytes Percent Auto 9.7 % (3-14); Neutrophils Absolute Auto 8400 /uL (1500-7000); Neutrophils Percent Auto 70.3 % (50-75); Platelet Count 284 X10^3/uL (150-400); Red Blood Cell Count 5.04 X10^6/uL (4.5-5.9); Red Cell Distribution Width 14.3 % (11.6-14.8); White Blood Cell Count 11.9 X10^3/uL (4.5-11.0)
[2018-06-12 07:56] LABS: Alanine Aminotransferase 29 IU/L (21-72); Albumin 3.4 g/dL (3.5-5.0); Albumin Globulin Ratio 1.1 (1.0-2.8); Alkaline Phosphatase 84 U/L (38-126); Aspartate Aminotransferase 27 IU/L (17-59); BUN Creatinine Ratio 8.6 (6-22); Bilirubin Total 0.3 mg/dL (0.2-1.3); Blood Urea Nitrogen 6 mg/dL (9-20); Calcium 8.5 mg/dL (8.4-10.2); Carbon Dioxide 29 mmol/L (22-32); Chloride 102 mmol/L (98-107); Estimated Glomerular Filt Rate > 60.0 mL/min (>60); Globulin 3.1 g/dL (1.7-4.1); Glucose 86 mg/dL (70-100); HEMOLYSIS < 15 (0-50); Potassium 4.5 mmol/L (3.4-5.1); Sodium 138 mmol/L (137-145); Total Protein 6.5 g/dL (6.3-8.2)
[2018-06-12] MEDS: ATENOLOL 25 MG TABLET PO (08:04)
[2018-06-12] MEDS: LEVOTHYROXINE 100 MCG TABLET PO (08:04)
[2018-06-12] MEDS: ACETAMINOPHEN 325 MG TABLET 975 MG PO ×2 (08:04→11:28)
[2018-06-12] MEDS: GABAPENTIN 300 MG CAPSULE PO ×3 (08:04→20:48)
[2018-06-12] MEDS: LACTOBACILLUS ACIDOPHILUS TABLET 1 EACH PO ×3 (08:04→16:46)
[2018-06-12] MEDS: METHOCARBAMOL 500 MG TABLET PO ×3 (08:05→20:49)
[2018-06-12] MEDS: SIMETHICONE 80 MG TABLET PO ×2 (08:10→18:33)
[2018-06-12 08:15] VITALS: BP 132/83; PULSE 63; RESP 16; TEMP 36.8; O2SAT 99
[2018-06-12 12:00] VITALS: BP 110/67; PULSE 59; RESP 16; TEMP 36.3; O2SAT 99
--- NOTE | 2018-06-12 13:59 | P.PN_ITS ---
Subjective Date Patient Seen: 06/12/18 Time Patient Seen: 13:56 Interval history: Patient had a large bowel movement. Feels about the same as yesterday. Pretty much eating/drinking despite being told by me to limit his p.o. intake. Exam Vital Signs (past 8 hours): - 06/12/18 08:15 06/12/18 12:00 Temperature 98.2 F 97.3 F L Pulse Rate 63 59 L Respiratory Rate 16 16 Blood Pressure 132/83 110/67 Pulse Oximetry 99 99 Oxygen Delivery Method Room Air Oxygen Flow Rate 0 Narrative Exam Narrative: Lungs are clear with very good effort. Heart regular rate and rhythm without murmur gallop. Abdomen it is soft but still distended. There is some mild tenderness in left abdomen that is miniscule comparing to the 1st day. Objective Labs Result Diagrams: 06/12/18 06:55 06/12/18 06:55 Labs: Laboratory Results - last 24 hr 06/09/18 06/11/18 06/12/18 10:20 17:44 06:55 WBC 11.9 H RBC 5.04 Hgb 13.3 L Hct 40.6 L MCV 80.6 MCH 26.4 MCHC 32.8 RDW 14.3 Plt Count 284 Neut % (Auto) 70.3 Lymph % (Auto) 14.6 L [place] % (Auto) 9.7 Eos % (Auto) 4.7 H Baso % (Auto) 0.7 Neut # (Auto) 8400 H Lymph # (Auto) 1700 [place] # (Auto) 1200 H Eos # (Auto) 600 H Baso # (Auto) 100 Factor VIII Activity 28 L Sodium 135 L Potassium 3.7 Chloride 100 Carbon Dioxide 27 BUN 5 L Creatinine 0.70 Estimated GFR > 60.0 BUN/Creatinine Ratio 7.1 Glucose 149 H Calcium 8.1 L Total Bilirubin AST ALT Alkaline Phosphatase Total Protein Albumin Globulin Albumin/Globulin Ratio 06/12/18 06:55 WBC RBC Hgb Hct MCV MCH MCHC RDW Plt Count Neut % (Auto) Lymph % (Auto) [place] % (Auto) Eos % (Auto) Baso % (Auto) Neut # (Auto) Lymph # (Auto) [place] # (Auto) Eos # (Auto) Baso # (Auto) Factor VIII Activity Sodium 138 Potassium 4.5 Chloride 102 Carbon Dioxide 29 BUN 6 L Creatinine 0.70 Estimated GFR > 60.0 BUN/Creatinine Ratio 8.6 Glucose 86 Calcium 8.5 Total Bilirubin 0.3 AST 27 ALT 29 Alkaline Phosphatase 84 Total Protein 6.5 Albumin 3.4 L Globulin 3.1 Albumin/Globulin Ratio 1.1 Assessment & Plan Assessment & Plan narrative: All in all seems to be doing okay. Bowel function returning. Continue IV antibiotics. Labs in the a.m.. Quality VTE Deep Vein Thrombosis/Pulmonary Embolism Present on Admission: No
[2018-06-12 15:15] VITALS: BP 110/71; PULSE 52; RESP 18; TEMP 36.8; O2SAT 98
[2018-06-12 19:57] VITALS: BP 139/95; PULSE 70; RESP 18; TEMP 37.2
[2018-06-12] MEDS: ATORVASTATIN 20 MG TABLET 40 MG PO (20:48)
[2018-06-12 23:00] VITALS: BP 102/63; PULSE 82; RESP 16; TEMP 37.3; O2SAT 97
[2018-06-13] VITALS (7 sets, daily range): BP systolic 101–136; BP diastolic 57–77; PULSE 45–63; RESP 16–18; TEMP 36.3–36.7; O2SAT 98–100
[2018-06-13] MEDS: ACETAMINOPHEN 325 MG TABLET 975 MG PO ×4 (00:36→17:14)
[2018-06-13] MEDS: LACTATED RINGERS 1,000 ML 100 ML IV ×2 (01:15→14:06)
[2018-06-13] MEDS: MEROPENEM 1 GM in SODIUM CHLORIDE 0.9% 100 ML 200 ML IV ×3 (04:28→20:20)
[2018-06-13] MEDS: LEVOTHYROXINE 100 MCG TABLET PO (06:24)
[2018-06-13] MEDS: ATENOLOL 25 MG TABLET PO (08:24)
[2018-06-13] MEDS: LACTOBACILLUS ACIDOPHILUS TABLET 1 EACH PO ×3 (08:24→17:14)
[2018-06-13] MEDS: GABAPENTIN 300 MG CAPSULE PO ×3 (08:25→20:23)
[2018-06-13] MEDS: METHOCARBAMOL 500 MG TABLET PO ×3 (08:25→20:23)
--- NOTE | 2018-06-13 13:56 | PC.NURSE ---
Pt c/o brief period of dizziness after ambulating to bathroom and back to bed. VS checked bp 118/75 hr 47. Pt states dizziness resolved immediately and he feels fine. Pt also states that his heart rate sometimes rests in the low 40's and it is not unusual for him.
--- NOTE | 2018-06-13 14:03 | PM.PN.1 ---
Subjective Date Patient Seen: 06/13/18 Time Patient Seen: 11:12 Interval history: The patient is a gentleman under treatment for diverticulitis. He feels better today than yesterday. Pain is much improved. Continues to pass flatus and have bowel movements. Not nauseated. Still a little sore. Exam Vital Signs (past 8 hours): - 06/13/18 08:20 06/13/18 11:40 06/13/18 13:56 Temperature 97.5 F L 98.0 F Pulse Rate 56 L 53 L 47 L Respiratory Rate 16 16 Blood Pressure 116/67 136/77 118/75 Pulse Oximetry 98 98 Oxygen Delivery Method Room Air Oxygen Flow Rate 0 Narrative Exam Narrative: Operative no apparent distress. Vital signs noted. He has been afebrile. Lungs are clear to auscultation. Good air movement. Heart regular rate and rhythm without murmur gallop. Abdomen is still mildly distended but soft. There is really no tenderness at this time except with deep palpation in the left lower quadrant. There are no palpable masses. Objective Labs Result Diagrams: 06/12/18 06:55 06/12/18 06:55 Assessment & Plan Assessment & Plan narrative: Patient clinically improving slowly. Suspect he will require several more days of IV antibiotics. May be possible for this to be arranged as an outpatient though I do not know. Will leave that decision to the patient's primary physician. Quality VTE Deep Vein Thrombosis/Pulmonary Embolism Present on Admission: No
[2018-06-13] MEDS: SODIUM CHLORIDE 0.9% FLUSH 10 ML IV (20:23)
[2018-06-13] MEDS: ATORVASTATIN 20 MG TABLET 40 MG PO (20:24)
[2018-06-14] MEDS: MEROPENEM 1 GM in SODIUM CHLORIDE 0.9% 100 ML 200 ML IV ×3 (04:04→20:18)
[2018-06-14] MEDS: LEVOTHYROXINE 100 MCG TABLET PO (05:07)
[2018-06-14 05:59] LABS: Add Manual Diff / Slide Review NO; Basophils Absolute Auto 100 /uL (0-100); Basophils Percent Auto 0.9 % (0-2); Eosinophils Absolute Auto 500 /uL (0-450); Eosinophils Percent Auto 7.9 % (2-4); Hemoglobin 13.2 g/dL (13.5-17.5); Lymphocytes Absolute Auto 1000 /uL (1100-4500); Lymphocytes Percent Auto 17.2 % (25-40); Mean Corpuscular Hemoglobin 26.5 PG (26-34); Mean Corpuscular Volume 80.2 fL (80-100); Monocytes Absolute Auto 700 /uL (0-900); Monocytes Percent Auto 11.2 % (3-14); Neutrophils Absolute Auto 3800 /uL (1500-7000); Neutrophils Percent Auto 62.8 % (50-75); Platelet Count 337 X10^3/uL (150-400); Red Blood Cell Count 4.99 X10^6/uL (4.5-5.9); Red Cell Distribution Width 14.3 % (11.6-14.8)
[2018-06-14 06:13] VITALS: BP 118/76; PULSE 56; RESP 18; TEMP 36.6; O2SAT 96
[2018-06-14 07:40] VITALS: BP 122/85; PULSE 73; RESP 16; TEMP 36.8; O2SAT 97
[2018-06-14] MEDS: ACETAMINOPHEN 325 MG TABLET 975 MG PO ×3 (07:54→17:24)
[2018-06-14] MEDS: LACTOBACILLUS ACIDOPHILUS TABLET 1 EACH PO ×3 (07:55→17:24)
[2018-06-14] MEDS: ATENOLOL 25 MG TABLET PO (07:55)
[2018-06-14] MEDS: GABAPENTIN 300 MG CAPSULE PO ×3 (07:55→20:18)
[2018-06-14] MEDS: METHOCARBAMOL 500 MG TABLET PO ×3 (07:56→20:18)
--- NOTE | 2018-06-14 10:15 | CM.DPC ---
Addendum entered by Felicitas Nash R.N. 06/14/18 13:41: Having Bronwyn attempt to call [facility] as well. Addendum entered by Felicitas Nash R.N. 06/14/18 13:15: Called back Marisela, from [facility]. She stated to go ahead and call the clinic, [facility], to see if they can put in authorization with [facility] for antibiotic. Attempted to call [facility] member service, their number is [phone], and was on hold for a while. [facility] a message at [facility] (inf[facility] to call this shelter case manager back. Original Note: DCP Cont: Spoke to surgeon, Dr. Reyes. He is inquiring if his insurance will cover 7 days of Ertapenum 1 gm IV daily. He stated that patient could go to outpatient infusion clinic and have this done, since is peripheral IV. Stated that this shelter case manager would call his insurance to inquire on this. Surgeon's phone number is: [phone]. Called and spoke with Marisela at [facility]. She stated that she would go ahead and call infusion clinic here at hospital and call this shelter case manager back. She stated if she is unable to get answer, to call member services. Their number is: [phone]. Will await Marisela's phone call first. P: DCP to follow. Will update surgeon as soon as information is available regarding medication. Felicitas Nsah RN/Back Filler Operator
--- NOTE | 2018-06-14 11:11 | P.PN_ITS ---
Subjective Date Patient Seen: 06/14/18 Time Patient Seen: 07:30 Interval history: Since switch off floroquinolone based abx therapy has progressively improved. Now on Meropenum. Tolerated full liquid diet. Pain essentially resolved. Hungery for real food. having BM and flatus. Feels quite w ell, asking to attend job interview this afternoon Exam Vital Signs (past 8 hours): - 06/14/18 06:13 06/14/18 07:40 Temperature 97.8 F 98.3 F Pulse Rate 56 L 73 Respiratory Rate 18 16 Blood Pressure 118/76 122/85 Pulse Oximetry 96 97 Oxygen Delivery Method Room Air Oxygen Flow Rate 0 Narrative Exam Narrative: Looks well, breathing comfortably on RA RRR Abd soft, non distended, i can illicit some abdominal tenderness but this takes quite a bit of pressure in LLQ to do so. periphery warm Objective Labs Result Diagrams: 06/14/18 05:10 06/12/18 06:55 Labs: Laboratory Results - last 24 hr 06/14/18 05:10 WBC 6.0 RBC 4.99 Hgb 13.2 L Hct 40.0 L MCV 80.2 MCH 26.5 MCHC 33.0 RDW 14.3 Plt Count 337 Neut % (Auto) 62.8 Lymph % (Auto) 17.2 L [place] % (Auto) 11.2 Eos % (Auto) 7.9 H Baso % (Auto) 0.9 Neut # (Auto) 3800 Lymph # (Auto) 1000 L [place] # (Auto) 700 Eos # (Auto) 500 H Baso # (Auto) 100 Assessment & Plan Assessment & Plan narrative: 57-year-old man hospital day 10. Admitted for acute diverticulitis having failed outpatient p.o. antibiotic treatment currently on IV antibiotic day 10 (levofloxacin and metronidazole x5, Meriopenum x5 ). He has improved markedly on the meropenum and meets all criteria for discharge with one exception - He has not oral antibiotic choice having a real allergy to PEN and failing floroquinolone therapy with both cipro and levo. He needs an additional 7 days of antibiotic therapy for a total of 12days on effective abx. Would like to discharge to home with daily follow up at infusion center for Q day 1g Ertapenum IV dosing. Plan: Ongoing meropenem, probiotic Discussed with infusion center - they are happy to see Discussed with D/c planning - will start preauth OK for low res diet Ok to ambulate No DVT proph with hx of hemphelia A D/C home when infusion set up Quality VTE Deep Vein Thrombosis/Pulmonary Embolism Present on Admission: No
[2018-06-14 12:05] VITALS: BP 120/74; PULSE 54; RESP 16; TEMP 36.6; O2SAT 98
[2018-06-14] MEDS: LACTATED RINGERS 1,000 ML 42 ML IV (12:12)
--- NOTE | 2018-06-14 14:25 | CM.DPC ---
Addendum entered by Felicitas Nash R.N. 06/14/18 14:39: Called [facility]. Confirmed that patient has been seen recently with Damaris Kothari, and was last seen on 05/28. Jaylan from [facility] will be faxing over form to be signed for medication today. Original Note: DCP Cont: Spoke to member services at [facility]. Had been on a lengthy hold with direct customer service representative, September. They will be faxing over a form for surgeon to sign, and can be faxed back to see if it is authorized medication. Gave them this fax number. At this time, there is no record of patient seeing provider recently. P: DCP will follow up. Form will be faxed over this afternoon. Felicitas Nash RN/Accounting Generalist
[2018-06-14 15:56] VITALS: BP 112/64; PULSE 51; RESP 16; TEMP 36.7; O2SAT 98
[2018-06-14 19:00] VITALS: BP 138/76; PULSE 51; RESP 17; TEMP 36.6; O2SAT 97
[2018-06-14] MEDS: ATORVASTATIN 20 MG TABLET 40 MG PO (20:18)
[2018-06-15] VITALS: BP 138/80; PULSE 61; RESP 20; TEMP 36.3; O2SAT 99
[2018-06-15] MEDS: ACETAMINOPHEN 325 MG TABLET 975 MG PO ×3 (00:02→19:13)
[2018-06-15] MEDS: MEROPENEM 1 GM in SODIUM CHLORIDE 0.9% 100 ML 200 ML IV ×3 (03:56→19:12)
[2018-06-15 04:59] VITALS: BP 141/87; PULSE 58; RESP 19; TEMP 36.3; O2SAT 100
--- NOTE | 2018-06-15 07:32 | CM.DPC ---
Addendum entered by Felicitas Nash R.N. 06/15/18 11:26: Jaylan [facility] had called and left a message for this child support case officer on [employer]'s phone. He stated that authorization form should be completed on line through their portal. He indicated that this could expedite the process. [facility] has access to their portal, and authorization form was completed on line, including diagnostic code that was given from [facility] yesterday. Will go on line later to see if authorization is approved. If it is approved, can contact infusion clinic, and will let surgeon know as well. Original Note: DCP Cont: Did not yet receive authorization form from [facility]. Confirmed from Marlee at infusion clinic, that care management would need to obtain the authorization for patient to go to the infusion clinic. At this point, have already attempted to speak to several individuals from [employer] regarding getting this process going. Will have [facility] attempt to locate the [facility] form for authorization on line, in order to complete it and fax over to them. According to Jaylan at [employer], this is what would need to get the process started. P: DCP to continue to attempt getting authorization for patient to go to infusion clinic. Other option is that he completes his antibiotics here at hospital. Felicitas Nash RN/Composition Roll Maker And Cutter
[2018-06-15 07:46] VITALS: BP 122/85; PULSE 54; RESP 18; TEMP 36.4; O2SAT 98
[2018-06-15] MEDS: LEVOTHYROXINE 100 MCG TABLET PO (07:47)
[2018-06-15] MEDS: LACTOBACILLUS ACIDOPHILUS TABLET 1 EACH PO ×3 (07:48→19:13)
[2018-06-15] MEDS: METHOCARBAMOL 500 MG TABLET PO ×3 (08:14→21:16)
[2018-06-15] MEDS: GABAPENTIN 300 MG CAPSULE PO ×3 (08:14→21:16)
[2018-06-15] MEDS: SODIUM CHLORIDE 0.9% FLUSH 10 ML IV ×3 (08:15→21:16)
[2018-06-15 11:40] VITALS: BP 126/89; PULSE 70; RESP 18; TEMP 36.6; O2SAT 96
--- NOTE | 2018-06-15 13:05 | CM.DPC ---
DCP Cont: Received authorization from [facility] for outpatient IV infusion. Updated nurse, Shakira. Called surgeon, Dr. Agosto. Gave him update. Asked him if he would call over at infusion to give them the orders. There is a discrepancy on orders, current ones for antibiotics state every 8 hours. He will call over at infusion and call this shoe parts caser back regarding orders, and he could potentially be discharged today if it is all set up. P: Surgeon will call this case manage back regarding set up at infusion clinic. Have the authorization here, will attach to face sheet. Felicitas Nash RN/Assembler Engine
[2018-06-15 15:28] VITALS: BP 121/79; PULSE 82; RESP 18; TEMP 36.6; O2SAT 93
[2018-06-15 19:07] VITALS: BP 119/74; PULSE 70; RESP 18; TEMP 36.8; O2SAT 96
--- NOTE | 2018-06-15 20:46 | PM.PN.1 ---
Subjective Date Patient Seen: 06/15/18 Time Patient Seen: 15:00 Interval history: Feeling quite well tolerating a low res diet. pain resolved Exam Vital Signs (past 8 hours): - 06/15/18 15:28 06/15/18 19:07 Temperature 97.8 F 98.3 F Pulse Rate 82 70 Respiratory Rate 18 18 Blood Pressure 121/79 119/74 Pulse Oximetry 93 96 Oxygen Delivery Method Room Air Oxygen Flow Rate 0 Narrative Exam Narrative: nAD well appering breathing on RA with ease RRR Abd soft nontender non distended. Tolerated deep palpation in RLQ Objective Labs Result Diagrams: 06/14/18 05:10 06/12/18 06:55 Assessment & Plan Assessment & Plan narrative: 57-year-old man hospital day 11. Admitted for acute diverticulitis having failed outpatient p.o. antibiotic treatment currently on IV antibiotic day 11 (levofloxacin and metronidazole x5, Meriopenum x6 ). He has improved markedly on the meropenum and meets all criteria for discharge with one exception - He has not oral antibiotic choice having a real allergy to PEN and failing floroquinolone therapy with both cipro and levo. He needs an additional 7 days of antibiotic therapy for a total of 13 days on effective abx. Would like to discharge to home with daily follow up at infusion center for Q day 1g Ertapenum IV dosing. Plan: Ongoing meropenem, probiotic Discussed with infusion center - they are happy to see Will complete setting up outpt infusion and discharge home tomorrow Quality VTE Deep Vein Thrombosis/Pulmonary Embolism Present on Admission: No
[2018-06-15] MEDS: ATORVASTATIN 20 MG TABLET 40 MG PO (21:16)
[2018-06-16] MEDS: MEROPENEM 1 GM in SODIUM CHLORIDE 0.9% 100 ML 200 ML IV (04:26)
--- NOTE | 2018-06-16 04:33 | PC.NURSE ---
Probate Paralegal Summary: 0000: Sleeping; IV in place in rt forearm. Vital signs stable. Not disturbed at this time. 0415: Awake, vital signs stable. Resting in bed. IV antibiotic infusing.
[2018-06-16 04:46] VITALS: BP 119/71; PULSE 53; RESP 18; TEMP 36.4; O2SAT 99
[2018-06-16] MEDS: ACETAMINOPHEN 325 MG TABLET 975 MG PO (05:19)
[2018-06-16] MEDS: LEVOTHYROXINE 100 MCG TABLET PO (05:19)
[2018-06-16 07:54] VITALS: BP 111/75; PULSE 60; RESP 16; TEMP 36.2; O2SAT 99
[2018-06-16] MEDS: ATENOLOL 25 MG TABLET PO (09:05)
[2018-06-16] MEDS: GABAPENTIN 300 MG CAPSULE PO (09:05)
[2018-06-16] MEDS: LACTOBACILLUS ACIDOPHILUS TABLET 1 EACH PO (09:07)
[2018-06-16] MEDS: SODIUM CHLORIDE 0.9% FLUSH 10 ML IV (09:09)
[2018-06-16] MEDS: METHOCARBAMOL 500 MG TABLET PO (09:09)
[2018-06-16] MEDS: ERTAPENEM 1 GM in SODIUM CHLORIDE 0.9% 100 ML 200 ML IV (09:18)
--- NOTE | 2018-06-16 10:59 | CM.DPC ---
DCP: continued: case received, d/c to home and with outpt IV antibiotics/[facility] oncology/infusion center. Met with pt to finalize d/c details after conferring with LAURA Torre. Pt plans to go over to the Infusion Center now, after his d/c paperwork is completed to discuss details of the plan. Gave him the copy of the [facility] auth for the treatment/faxed to the Infusion Center yesterday by ILEANA Polk. All orders are in place. Pt confirms his mailing address is in [place] but he lives with his cousin Yovana Og in [place]. He will be driving himself home and to and from the Infusion Center. He states he feels comfortable with the d/c plan for today.
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
== END 2018-06-16 11:13 | disposition home or self-care (01) | DRG 391 ==
LOC: ED 09:21 → AC 09:24
PROVIDERS: Specialist; Surgery; Admitting Provider Surgery; Emergency Provider Emergency Medicine; PCP Family Medicine; Visit Provider Surgery
DX: K57.32 Diverticulitis of large intestine without perforation or abscess without bleeding (principal); D66 Hereditary factor VIII deficiency; E03.9 Hypothyroidism, unspecified; Z87.891 Personal history of nicotine dependence; I10 Essential (primary) hypertension; E78.5 Hyperlipidemia, unspecified; K21.9 Gastro-esophageal reflux disease without esophagitis
CPT/HCPCS: 36415; 36591; 74177; 80048; 80053; 82962; 83690; 85025; 85240; 96365; 96375; 99203; 99213; 99231; 99283; 99285; J1170; J1335; J1956; J2185; J2405; Q9967

== ENCOUNTER → 2018-06-23 08:27 | Outpatient (CLI) | payer OTHER, SELFPAY ==
[2018-06-16 15:25] VITALS: BMI 26.2
[2018-06-23 11:54] LABS: Clostridium Difficile Tox PCR Negative for C. diff
== END ==
PROVIDERS: PCP Family Medicine; Visit Provider Surgery
DX: R19.7 Diarrhea, unspecified (principal)
CPT/HCPCS: 87493

== ENCOUNTER → 2018-06-24 09:17 | Oncology outpatient (ONC) | payer OTHER, SELFPAY ==
[2018-06-05 10:42] VITALS: BMI 26.2
[2018-06-16 15:25] VITALS: BMI 26.2
[2018-06-17] MEDS: ERTAPENEM 1 GM in SODIUM CHLORIDE 0.9% 100 ML 200 ML IV (09:04)
[2018-06-18] MEDS: ERTAPENEM 1 GM in SODIUM CHLORIDE 0.9% 100 ML IV (08:33)
[2018-06-18 08:43] VITALS: BP 121/72; PULSE 65; RESP 18; O2SAT 100
[2018-06-19] MEDS: ERTAPENEM 1 GM in SODIUM CHLORIDE 0.9% 100 ML 200 ML IV (08:31)
[2018-06-20] MEDS: ERTAPENEM 1 GM in SODIUM CHLORIDE 0.9% 100 ML 200 ML IV (09:01)
[2018-06-20 09:06] VITALS: BP 111/77; PULSE 91; RESP 17; TEMP 36.6; O2SAT 96
[2018-06-21 09:00] VITALS: BP 116/89; PULSE 68; RESP 16; TEMP 36.6; O2SAT 99
[2018-06-21] MEDS: ERTAPENEM 1 GM in SODIUM CHLORIDE 0.9% 100 ML 200 ML IV (09:01)
[2018-06-22] MEDS: ERTAPENEM 1 GM in SODIUM CHLORIDE 0.9% 100 ML 200 ML IV (08:50)
[2018-06-22 09:13] VITALS: BP 131/86; PULSE 60; RESP 18; TEMP 36.8; O2SAT 98
[2018-06-23] MEDS: ERTAPENEM 1 GM in SODIUM CHLORIDE 0.9% 100 ML 200 ML IV (08:48)
[2018-06-23 08:50] VITALS: BP 116/76; PULSE 71; RESP 16; TEMP 36.7; O2SAT 98
== END ==
PROVIDERS: PCP Family Medicine; Visit Provider Surgery
DX: K57.32 Diverticulitis of large intestine without perforation or abscess without bleeding (principal)
CPT/HCPCS: 87493; 96365; J1335

== ENCOUNTER 2018-10-21 07:08 | Emergency (ER) | payer OTHER, SELFPAY ==
[2018-06-16 15:25] VITALS: BMI 26.2
[2018-10-21 07:14] VITALS: BP 152/88; PULSE 92; RESP 15; TEMP 37.1; O2SAT 96; BMI 24.6
[2018-10-21 07:30] LABS: Add Manual Diff / Slide Review NO; Basophils Absolute Auto 100 /uL (0-100); Basophils Percent Auto 0.9 % (0-2); Eosinophils Absolute Auto 300 /uL (0-450); Eosinophils Percent Auto 2.4 % (2-4); Hematocrit 43.8 % (41-53); Hemoglobin 14.4 g/dL (13.5-17.5); Lymphocytes Absolute Auto 1500 /uL (1100-4500); Lymphocytes Percent Auto 13.8 % (25-40); Mean Corpuscular Volume 81.8 fL (80-100); Monocytes Absolute Auto 900 /uL (0-900); Monocytes Percent Auto 8.8 % (3-14); Neutrophils Absolute Auto 8000 /uL (1500-7000); Neutrophils Percent Auto 74.1 % (50-75); Platelet Count 230 X10^3/uL (150-400); Red Blood Cell Count 5.35 X10^6/uL (4.5-5.9); Red Cell Distribution Width 14.8 % (11.6-14.8); White Blood Cell Count 10.7 X10^3/uL (4.5-11.0)
--- NOTE | 2018-10-21 07:35 | ED_ITS ---
HPI - Abdominal Pain General Chief Complaint: Abdominal Pain Stated Complaint: Diverticulitis Time Seen by Provider: 10/21/18 07:10 Source: patient Mode of arrival: ambulatory Limitations: no limitations History of Present Illness HPI narrative: Patient comes emergency department complaining of left lower quadrant pain that started yesterday. Patient has a history of diverticulitis once before, and states this feels the same. Patient denies nausea, vomiting, or fevers. He denies dysuria. No back pain. No chest pain or shortness breath. No blood in his stools. No diarrhea. Patient states that he believes the episode started because he ate Grape Nuts. No other complaints at this time. Related Data Home Medications Medication Instructions Recorded Confirmed esomeprazole magnesium [Nexium] See Rx Instructions .ROUTE .COMPLEX 02/26/18 06/21/18 levothyroxine 100 mcg PO DAILY 02/26/18 06/21/18 atenolol 25 mg PO DAILY 06/05/18 06/21/18 atorvastatin 40 mg PO DAILY 06/05/18 06/21/18 cetirizine 10 mg PO DAILY 06/05/18 06/21/18 metoclopramide HCl 5 mg PO PRN PRN 06/05/18 06/21/18 ranitidine HCl 150 mg PO BID 06/05/18 06/21/18 Previous Rx's Medication Instructions Recorded L.acidoph-L.bulg-B.bif-S.therm 1 ea PO TIDWM #90 tab 06/16/18 [Bacid (L. acidophilus)] acetaminophen 975 mg PO Q6H PRN #20 cap 06/16/18 oxycodone 5 mg PO Q4HR PRN #8 tab 06/16/18 hydrocodone-acetaminophen 1 tab PO Q4H PRN #10 tab 10/21/18 levofloxacin [Levaquin] 500 mg PO DAILY #14 tab 10/21/18 metronidazole [Flagyl] 500 mg PO BID #28 tab 10/21/18 Allergies Allergy/AdvReac Type Severity Reaction Status Date / Time Penicillins Allergy Verified 10/21/18 07:14 Review of Systems Constitutional Constitutional: Denies chills, Denies fatigue, Denies fever(s), Denies frequent falls, Denies lethargy and Denies weakness Eyes Eyes: Denies change in vision, Denies eye discharge, Denies irritation and Denies loss of vision ENT Ears, Nose, Mouth, and Throat: Denies change in voice, Denies dizziness, Denies neck pain, Denies sore throat and Denies throat swelling Cardiovascular Cardiovascular: Denies chest pain, Denies irregular heart rhythm, Denies lightheadedness, Denies palpitations, Denies dyspnea, Denies dyspnea on exertion and Denies orthopnea Respiratory Respiratory: Denies cough, Denies dyspnea, Denies dyspnea on exertion and Denies wheezing Gastrointestinal Gastrointestinal: Reports abdominal pain, Denies change in bowel habits, Denies diarrhea, Denies nausea and Denies vomiting Genitourinary Genitourinary: Denies hematuria, Denies flank pain, Denies urinary incontinence and Denies urinary urgency Musculoskeletal Musculoskeletal: Denies back pain, Denies muscle weakness, Denies neck pain, Denies numbness and Denies tingling Integumentary/Breasts Skin/Breast: Denies pruritus, Denies erythema, Denies rash and Denies wounds Neurologic Neurologic: Denies behavioral changes, Denies confusion, Denies dizziness, Denies frequent falls, Denies loss of vision, Denies numbness, Denies tingling and Denies weakness Psychiatric Psychiatric: Denies anxiety, Denies behavioral changes, Denies confusion, Denies depression, Denies homicidal ideation and Denies suicidal ideation Endocrine Endocrine: Denies fatigue, Denies flushing and Denies palpitations Hematologic/Lymphatic Hematologic/Lymphatic: Denies easy bruising Allergic/Immunologic Allergic/Immunologic: Denies urticaria, Denies throat swelling and Denies wheezing [facility] Medical History (Updated 10/21/18 @ 09:52 by Kisha Wiseman MD) Acid reflux (Acute) Colon polyps (Acute) Hemophilia A (Acute) HTN (hypertension) (Acute) Hypercholesteremia (Acute) Hypothyroid (Chronic) Surgical History (Updated 10/21/18 @ 07:38 by Kisha Wiseman MD) No pertinent past surgical history (Acute) Social History household members: family Smoking Status: Former smoker alcohol intake: current Social History household members: family Smoking Status: Former smoker alcohol intake: current Exam Initial Vital Signs Initial Vital Signs: Vital Signs Temperature 98.7 F 09/12/19 07:14 Pulse Rate 92 H 10/21/18 07:14 Respiratory Rate 15 10/21/18 07:14 Blood Pressure 152/88 H 10/21/18 07:14 Pulse Oximetry 96 10/21/18 07:14 Const General: cooperative and well developed Nutritional Appearance: well nourished Orientation: alert, awake, oriented x3 and not confused [facility] Head: normocephalic and atraumatic Ears: external ears normal Nose: external nose normal and No nasal discharge Face and sinus: face symmetric and No dry mucous membranes Mouth: oral mucosae normal and moist mucous membranes Teeth and gingiva: dentition normal Eyes General: appearance normal, both eyes and all related structures Eyelids: eyelids normal Conjunctivae: conjunctivae normal Sclera: sclerae normal Pupils: PERRL EOM: EOM intact bilaterally Neck Neck: normal visual inspection, trachea midline, No lymphadenopathy, No midline deformity and No JVD Lymphatic: No lymphedema Chest Chest: normal inspection of the chest Resp Effort & Inspection: normal respiratory effort, able to speak in complete sentences, no respiratory distress and no use of accessory muscles Auscultation: clear to auscultation bilaterally, no rales, no rhonchi and no whe ezes Cardio Rate: regular rate Rhythm: regular rhythm Heart Sounds: no click, no gallops, no murmurs and no rubs Pulses: normal peripheral pulses GI Inspection: non-distended Palpation: soft, no hepatosplenomegaly, No guarding, No pulsatile mass and tender (Moderate, left lower quadrant) Back/Spine/Pelvis Back: No CVA tenderness Cervical Spine: cervical ROM normal and No pain with cervical ROM Thoracic/Lumbar Spine: thoracic and lumbar spine normal to inspection Skin General: no rashes or lesions noted, No jaundice and No petechiae Neuro General: alert, oriented x3, gait normal and no focal motor deficits Speech: speech normal Extrem General: full ROM, no clubbing, cyanosis or edema, no pedal edema and no calf tenderness Psych Appearance: well kempt Mental Status: mental status grossly normal Attitude: cooperative Thought Content: normal and suicidality Judgment: judgment good Course Course Course Narrative: Patient was worked up with labs and CT scan of the abdomen and pelvis in the emergency department. His CT scan was positive for diverticuli tis. Patient was treated with Levaquin and Flagyl in the emergency department, and sent home with prescriptions for the same. We have discussed the usual indications for return, as well as home management of symptoms. Orders Ordered: Discontinued Medications Levofloxacin (Levaquin) 750 mg PO NOW ONE Stop: 10/21/18 09:29 Last Admin: 10/21/18 09:33 Dose: 750 mg Documented by: HUGO Metronidazole (Metronidazole) 500 mg PO NOW ONE Stop: 10/21/18 09:29 Last Admin: 10/21/18 09:33 Dose: 500 mg Documented by: HUGO Vital Signs Vital signs: Vital Signs - 8 hr 10/21/18 07:14 Temperature 98.7 F Pulse Rate 92 H Respiratory Rate 15 Blood Pressure 152/88 H Pulse Oximetry 96 MDM - Abdominal Pain Medical Records Attestation: I reviewed the patient's medical records. Lab Data Attestation: I reviewed the patient's lab results. Result diagrams: 10/21/18 07:10 10/21/18 07:10 Labs: Lab Results 10/21/18 10/21/18 10/21/18 Range/Units 07:10 07:10 07:10 WBC 10.7 (4.5-11.0) X10^3/uL RBC 5.35 (4.5-5.9) X10^6/uL Hgb 14.4 (13.5-17.5) g/dL Hct 43.8 (41-53) % MCV 81.8 (80-100) fL MCH 27.0 (26-34) PG MCHC 33.0 (30-36) % RDW 14.8 (11.6-14.8) % Plt Count 230 (150-400) X10^3/uL Neut % (Auto) 74.1 (50-75) % Lymph % (Auto) 13.8 L (25-40) % [place] % (Auto) 8.8 (3-14) % Eos % (Auto) 2.4 (2-4) % Baso % (Auto) 0.9 (0-2) % Neut # (Auto) 8000 H (7363-5027) /uL Lymph # (Auto) 1500 (0425-7951) /uL [place] # (Auto) 900 (0-900) /uL Eos # (Auto) 300 (0-450) /uL Baso # (Auto) 100 (0-100) /uL PT 12.1 (10.1-12.7) SECONDS INR 1.0 (0.9-1.3) APTT 38 H D (26.4-36.2) SECONDS Sodium 139 (137-145) mmol/L Potassium 4.0 (3.4-5.1) mmol/L Chloride 105 (98-107) mmol/L Carbon Dioxide 22 (22-32) mmol/L BUN 7 L (9-20) mg/dL Creatinine 0.70 (0.66-1.25) mg/dL Estimated GFR > 60.0 (>60) mL/min BUN/Creatinine Ratio 10.0 (6-22) Glucose 147 H (80-110) mg/dL Calcium 9.0 (8.4-10.2) mg/dL Total Bilirubin 0.8 (0.2-1.3) mg/dL AST 25 (17-59) IU/L ALT 28 (21-72) IU/L Alkaline Phosphatase 96 (38-126) U/L Total Protein 7.2 (6.3-8.2) g/dL Albumin 4.0 (3.5-5.0) g/dL Globulin 3.2 (1.7-4.1) g/dL Albumin/Globulin Ratio 1.3 (1.0-2.8) Lipase 134 (23-300) U/L Imaging Data CT scan - abdomen: Radiologist's impression: PROCEDURE: CT ABDOMEN PELVIS W CON INDICATIONS: LLQ abd pain TECHNIQUE: After the administration of intravenous contrast, 5 mm thick sections acquired from the diaphragm to the symphysis. 5 mm coronal and sagittal reformats were acquired. For radiation dose reduction, the following was used: automated exposure control, adjustment of mA and/or kV according to patient size. COMPARISON: [facility], MR, MR BRAIN WITH/WITHOUT CONTRAST, 10/04/2018, 10:32. [facility], CT, CT ABDOMEN PELVIS W CON, 06/05/2018, 8:24. [facility], CT, CT ABDOMEN PELVIS W CON, 05/30/2018, 14:42. [facility], CT, CT ABDOMEN PELVIS W CON, 06/09/2018, 12:48. FINDINGS: Image quality: Excellent. ABDOMEN: Lung bases: There is a tumor nodule in the right middle lobe, which is partially calcified, likely a small granuloma. Heart size is normal. Small hiatal hernia. Solid organs: Liver is normal in size and enhancement. There is a bilobed cyst in the anterior segment of the right hepatic lobe, unchanged. Gallbladder is normal. Biliary system is non dilated. Pancreas enhances normally. Spleen is normal in size and enhancement. No adrenal nodules. Kidneys demonstrate normal size and enhancement, without hydronephrosis. Peritoneum and bowel: There are numerous colonic diverticula. There is th ickening and stranding in sigmoid colon consistent with acute diverticulitis. Compared to the last exam on 06/09/2018, sigmoid colon wall thickening persists although pericolonic fat stranding has decreased. The small 6 mm pericolonic abscess on the last exam is no longer visualized. Bowel loops demonstrate normal caliber. No free fluid or air. Normal appendix. Nodes and vessels: No retroperitoneal or mesenteric adenopathy by size criteria. Aorta and inferior vena cava are normal in size. Miscellaneous: There is a small paraumbilical hernia with wide-neck containing omental fat and small bowel. PELVIS: Genitourinary: Bladder wall thickness is normal. Enlarged prostate. Miscellaneous: No inguinal adenopathy. Small fat containing left inguinal hernia. Bones: No suspicious bony lesions. No vertebral body compression fractures. Mild degenerative changes in lumbar spine. IMPRESSION: 1. Sigmoid diverticulitis. There are numerous colonic diverticula. There is focal thickening in sigmoid colon and mild pericolonic stranding. No evidence for diverticular perforation or abscess. After adequate treatment, endoscopic followup may be considered as colon cancer could have similar CT appearance. 2. There is a bilobed cyst in liver. 3. A 2 mm partially calcified nodule in right middle lobe compatible with an old granuloma. 4. Periumbilical ventral hernia. Dictated by: Frank Guadarrama M.D. on 10/21/2018 at 7:59 Approved by: Frank Guadarrama M.D. on 10/21/2018 at 8:14 Discharge Plan Departure Patient Disposition: Home Clinical Impression: Diverticulitis Discharge Date/Time: 10/21/18 10:07 Instructions: DI for Diverticulitis Activity Restrictions/Additional Instructions: Your labs look great. Your CT scan shows that you have diverticulitis again. However, there is no evidence of a hole having burst in your intestines or of an abscess having formed. As such, your case is appropriate for outpatient treatment. You will need to be on 2 antibiotics for 2 weeks, and you will need to take these every day, as directed, until gone. If you find that your symptoms are worsening after a few days of antibiotics, then you should be re- evaluated. Otherwise, it is normal to have some pain for several days to a week after starting antibiotics. However, this should not worsen after the 1st couple of days. Drink plenty of fluids and take the medicine prescribed as needed for pain, as well. Prescriptions: New levofloxacin [Levaquin] 500 mg tablet 500 mg PO DAILY Qty: 14 RF: 0 metronidazole [Flagyl] 500 mg tablet 500 mg PO BID Qty: 28 RF: 0 hydrocodone-acetaminophen 5-325 mg tablet 1 tab PO Q4H PRN (Reason: pain) Qty: 10 RF: 0 No Action esomeprazole magnesium [Nexium] 20 mg Capsule,Delayed Release(Dr/Ec) See Rx Instructions .ROUTE .COMPLEX RF: 0 levothyroxine 100 mcg PO DAILY RF: 0 cetirizine 10 mg Tablet 10 mg PO DAILY RF: 0 atorvastatin 40 mg Tablet 40 mg PO DAILY RF: 0 atenolol 25 mg Tablet 25 mg PO DAILY RF: 0 metoclopramide HCl 5 mg PO PRN PRN (Reason: Acid Reflux) RF: 0 ranitidine HCl 150 mg PO BID RF: 0 acetaminophen 500 mg capsule 975 mg PO Q6H PRN (Reason: Abdominal Discomfort) Qty: 20 RF: 0 oxycodone 5 mg Tablet 5 mg PO Q4HR PRN (Reason: Abdominal Discomfort) Qty: 8 RF: 0 Bacid (L. acidophilus) 1 billion cell- 250 mg Tablet 1 ea PO TIDWM Qty: 90 RF: 0 Referrals: Damaris Kothari MD [Primary Care Provider] -
[2018-10-21 07:37] LABS: Prothrombin Time 12.1 SECONDS (10.1-12.7)
[2018-10-21 07:40] LABS: Alanine Aminotransferase 28 IU/L (21-72); Albumin Globulin Ratio 1.3 (1.0-2.8); Alkaline Phosphatase 96 U/L (38-126); Aspartate Aminotransferase 25 IU/L (17-59); Bilirubin Total 0.8 mg/dL (0.2-1.3); Blood Urea Nitrogen 7 mg/dL (9-20); Carbon Dioxide 22 mmol/L (22-32); Chloride 105 mmol/L (98-107); Estimated Glomerular Filt Rate > 60.0 mL/min (>60); Globulin 3.2 g/dL (1.7-4.1); Glucose 147 mg/dL (80-110); HEMOLYSIS < 15 (0-50); Lipase 134 U/L (23-300); PTT Partial Thromboplastin Tim 38 SECONDS (26.4-36.2); Sodium 139 mmol/L (137-145); Total Protein 7.2 g/dL (6.3-8.2)
--- NOTE | 2018-10-21 07:59 | DI.CT.S_ITS ---
PROCEDURE: CT ABDOMEN PELVIS W CON INDICATIONS: LLQ abd pain TECHNIQUE: After the administration of intravenous contrast, 5 mm thick sections acquired from the diaphragm to the symphysis. 5 mm coronal and sagittal reformats were acquired. For radiation dose reduction, the following was used: automated exposure control, adjustment of mA and/or kV according to patient size. COMPARISON: [facility], MR, MR BRAIN WITH/WITHOUT CONTRAST, 10/04/2018, 10:32. [facility], CT, CT ABDOMEN PELVIS W CON, 06/05/2018, 8:24. [facility], CT, CT ABDOMEN PELVIS W CON, 05/30/2018, 14:42. [facility], CT, CT ABDOMEN PELVIS W CON, 06/09/2018, 12:48. FINDINGS: Image quality: Excellent. ABDOMEN: Lung bases: There is a tumor nodule in the right middle lobe, which is partially calcified, likely a small granuloma. Heart size is normal. Small hiatal hernia. Solid organs: Liver is normal in size and enhancement. There is a bilobed cyst in the anterior segment of the right hepatic lobe, unchanged. Gallbladder is normal. Biliary system is non dilated. Pancreas enhances normally. Spleen is normal in size and enhancement. No adrenal nodules. Kidneys demonstrate normal size and enhancement, without hydronephrosis. Peritoneum and bowel: There are numerous colonic diverticula. There is thickening and stranding in sigmoid colon consistent with acute diverticulitis. Compared to the last exam on 06/09/2018, sigmoid colon wall thickening persists although pericolonic fat stranding has decreased. The small 6 mm pericolonic abscess on the last exam is no longer visualized. Bowel loops demonstrate normal caliber. No free fluid or air. Normal appendix. Nodes and vessels: No retroperitoneal or mesenteric adenopathy by size criteria. Aorta and inferior vena cava are normal in size. Miscellaneous: There is a small paraumbilical hernia with wide-neck containing omental fat and small bowel. PELVIS: Genitourinary: Bladder wall thickness is normal. Enlarged prostate. Miscellaneous: No inguinal adenopathy. Small fat containing left inguinal hernia. Bones: No suspicious bony lesions. No vertebral body compression fractures. Mild degenerative changes in lumbar spine. IMPRESSION: 1. Sigmoid diverticulitis. There are numerous colonic diverticula. There is focal thickening in sigmoid colon and mild pericolonic stranding. No evidence for diverticular perforation or abscess. After adequate treatment, endoscopic followup may be considered as colon cancer could have similar CT appearance. 2. There is a bilobed cyst in liver. 3. A 2 mm partially calcified nodule in right middle lobe compatible with an old granuloma. 4. Periumbilical ventral hernia. Dictated by: Frank Guadarrama M.D. on 10/21/2018 at 7:59 Approved by: Frank Guadarrama M.D. on 10/21/2018 at 8:14
[2018-10-21 08:00] VITALS: BP 129/74; PULSE 75; RESP 21; O2SAT 97
[2018-10-21 09:00] VITALS: BP 135/87; PULSE 84; RESP 21; O2SAT 98
[2018-10-21] MEDS: levoFLOXacin 250 MG TABLET 750 MG PO (09:33)
[2018-10-21] MEDS: metroNIDAZOLE 250 MG TABLET 500 MG PO (09:33)
[2018-10-21 10:06] VITALS: BP 135/94; PULSE 73; RESP 18; O2SAT 99
== END 2018-10-21 10:07 | disposition home or self-care (01) ==
PROVIDERS: Emergency Provider Emergency Medicine; PCP Family Medicine
DX: K57.92 Diverticulitis of intestine, part unspecified, without perforation or abscess without bleeding (principal)
CPT/HCPCS: 36591; 74177; 80053; 83690; 85025; 85610; 85730; 99282; 99285; Q9967

== ENCOUNTER → 2019-12-07 09:31 | Outpatient (CLI) | payer SELFPAY ==
[2018-06-16 15:25] VITALS: BMI 26.2
--- NOTE | 2019-12-07 | DI.RAD.S_ITS ---
PROCEDURE: XR FOOT RT MIN 3V INDICATIONS: Pain in unspecified joint TECHNIQUE: 3 views of the foot were acquired. COMPARISON: None. FINDINGS: Bones: No fractures or dislocations. No suspicious bony lesions. Soft tissues: No tibiotalar joint effusion. Achilles tendon appears normal. IMPRESSION: No radiographic abnormalities. If there is continued pain, followup exam or additional imaging such as MRI or CT could be performed for further assessment. Dictated by: Jade Neves M.D. on 12/07/2019 at 14:42 Approved by: Jade Neves M.D. on 12/07/2019 at 14:42
--- NOTE | 2019-12-07 | DI.RAD.S_ITS ---
/PROCEDURE: XR FOOT LT MIN 3V INDICATIONS: Pain in unspecified joint TECHNIQUE: 3 views of the foot were acquired. COMPARISON: None. FINDINGS: Bones: No fractures or dislocations. No suspicious bony lesions. Soft tissues: No tibiotalar joint effusion. Achilles tendon appears normal. IMPRESSION: No acute radiographic findings. If there is continued pain, followup exam or additional imaging such as MRI or CT could be performed for further assessment. Dictated by: Jade Neves M.D. on 12/07/2019 at 14:41 Approved by: Jade Neves M.D. on 12/07/2019 at 14:42
== END ==
PROVIDERS: PCP Family Medicine; Referring Provider Family Medicine; Visit Provider Family Medicine
DX: M25.50 Pain in unspecified joint (principal)
CPT/HCPCS: 73630

== ENCOUNTER → 2020-03-26 12:47 | Outpatient (CLI) | payer OTHER, SELFPAY ==
[2018-06-16 15:25] VITALS: BMI 26.2
[2020-03-26 13:50] LABS: Erythrocyte Sedimentation Rate 2 MM/HR (0-15)
[2020-03-26 14:23] LABS: BUN Creatinine Ratio 16.2 (6-22); Blood Urea Nitrogen 11 mg/dL (9-20); Calcium 8.9 mg/dL (8.4-10.2); Carbon Dioxide 28 mmol/L (22-32); Chloride 103 mmol/L (98-107); Estimated Glomerular Filt Rate > 60.0 mL/min (>60); Glucose 78 mg/dL (80-110); HEMOLYSIS < 15 (0-50); Potassium 4.4 mmol/L (3.4-5.1); Sodium 136 mmol/L (137-145)
[2020-03-26 14:32] LABS: C-Reactive Protein Quant < 0.5 mg/dL (<1.0)
== END ==
PROVIDERS: PCP Family Medicine; Referring Provider Family Medicine; Visit Provider Family Medicine
DX: G89.29 Other chronic pain (principal); R51.9 Headache, unspecified
CPT/HCPCS: 36415; 80048; 85651; 86140

== ENCOUNTER → 2020-04-12 13:29 | Outpatient (CLI) | payer OTHER, SELFPAY ==
[2018-06-16 15:25] VITALS: BMI 26.2
--- NOTE | 2020-04-12 | DI.CT.S_ITS ---
PROCEDURE: CT HEAD/BRAIN WO/W CON INDICATIONS: HEADACHES TECHNIQUE: 4.5 mm thick angled axial sections acquired from the foramen magnum to the vertex before and after the administration of intravenous contrast, with coronal and sagittal reformats. For radiation dose reduction, the following was used: automated exposure control, adjustment of mA and/or kV according to patient size. COMPARISON: None. FINDINGS: Image quality: Excellent. CSF Spaces: Basal cisterns are patent. No extra-axial fluid collections. Ventricles are normal in size and shape. Brain: No midline shift. No intracranial bleeds or masses. No abnormal intracranial enhancement. Corona-white interface appears normal. Skull and face: Calvarium and visualized facial bones appear intact, without suspicious lesions. Sinuses: Visualized sinuses and mastoids are clear. IMPRESSION: Normal for age, source of current headache symptoms is not seen. Dictated by: Dion Vo M.D. on 04/12/2020 at 15:35 Approved by: Dion Vo M.D. on 04/12/2020 at 15:35
== END ==
PROVIDERS: PCP Family Medicine; Referring Provider Family Medicine; Visit Provider Family Medicine
DX: R51.9 Headache, unspecified (principal)
CPT/HCPCS: 70470; Q9967

== ENCOUNTER → 2020-06-12 10:47 | Outpatient (CLI) | payer OTHER, SELFPAY ==
[2018-06-16 15:25] VITALS: BMI 26.2
--- NOTE | 2020-06-12 | DI.RAD.S_ITS ---
PROCEDURE: XR KNEE STANDING BI INDICATIONS: bilateral knee pain TECHNIQUE: Single frontal view, weight-bearing, of each knee.. COMPARISON: None. FINDINGS: Bones: No acute fractures or dislocations. Patellar alignment is normal on the sunrise view. No suspicious bony lesions. Joint spaces appear normal with weightbearing. Soft tissues: No knee joint effusions. No suspicious soft tissue calcification. IMPRESSION: There is symmetric mild narrowing of the medial compartment of each knee and a slight degree of lateral compartment narrowing also. No prior trauma found. Dictated by: Dion Vo M.D. on 06/12/2020 at 11:45 Approved by: Dion Vo M.D. on 06/12/2020 at 11:46
== END ==
PROVIDERS: PCP Family Medicine; Referring Provider Family Medicine; Visit Provider Family Medicine
DX: M25.561 Pain in right knee (principal); M25.562 Pain in left knee
CPT/HCPCS: 73565

== ENCOUNTER → 2020-07-26 08:44 | Outpatient (CLI) | payer OTHER, SELFPAY ==
[2018-06-16 15:25] VITALS: BMI 26.2
--- NOTE | 2020-08-03 08:55 | PM.PFT.1 ---
Pulmonary Function Test Referral & Results Date Patient Seen: 07/26/20 Requesting provider: Damaris Kothari Results: The spirometry demonstrates an FVC of 3.03 L which is 74% of predicted. The FEV1 was measured at 2.67 L which is 87% of predicted. The FEV1/FVC ratio was 88 which is 117% of predicted. Following the administration of bronchodilator there was a 25% improvement in FEF 25-75%. Lung volumes show an SVC of 3.41 L which is 82% of predicted. The diffusing capacity was measured at 23.77 which is 88% of predicted. The maximum voluntary ventilation was normal Interpretation: This study demonstrates probably normal spirometry. There is some minimal evidence of benefit in small airway flow based on improvement in FEF 25-75% post bronchodilator. Diffusing capacity and maximum voluntary ventilation are also normal
== END ==
LOC: RESP 08:45
PROVIDERS: PCP Family Medicine; Referring Provider Family Medicine; Visit Provider Family Medicine
DX: R06.02 Shortness of breath (principal); Z87.891 Personal history of nicotine dependence
CPT/HCPCS: 94060; 94726; 94729

== ENCOUNTER 2020-11-04 09:22 | Emergency (ER) | payer OTHER, SELFPAY ==
[2018-06-16 15:25] VITALS: BMI 26.2
[2020-11-04] VITALS (7 sets, daily range): BP systolic 135–174; BP diastolic 76–85; PULSE 45–57; RESP 14–22; TEMP 36.7; O2SAT 95–98; BMI 25.2
--- NOTE | 2020-11-04 09:45 | DI.RAD.S_ITS ---
PROCEDURE: XR CHEST 1V INDICATIONS: dizzy/shortness of breath TECHNIQUE: One view of the chest was acquired. COMPARISON: [facility], CT, CT ABDOMEN PELVIS WITH CONTRAST, 11/01/2020, 12:49. [facility], CR, XR CHEST 2V, 02/27/2018, 7:46. [facility], CR, XR CHEST 1V, 05/30/2018, 14:17. FINDINGS: Surgical changes and devices: None. Lungs and pleura: Low lung volumes are noted. This causes a crowded appearance to the lung markings and limits evaluation. On this semiupright portable chest examination, no large pneumothorax or large pleural effusions are seen. No focal infiltrates are seen. Mediastinum: The cardiac contours are within normal limits. The aorta demonstrates calcification and tortuosity. Bones and chest wall: Age-appropriate bony degenerative changes are seen. No suspicious bony lesions. Overlying soft tissues appear unremarkable. IMPRESSION: Portable chest within normal limits. Dictated by: Jesus Caputo M.D. on 11/04/2020 at 8:58 Approved by: Jesus Caputo M.D. on 11/04/2020 at 8:59
[2020-11-04 09:57] LABS: Add Manual Diff / Slide Review NO; Basophils Absolute Auto 100 /uL (0-100); Basophils Percent Auto 1.4 % (0-2); Eosinophils Absolute Auto 500 /uL (0-450); Eosinophils Percent Auto 7.3 % (2-4); Hematocrit 43.1 % (41-53); Hemoglobin 13.9 g/dL (13.5-17.5); Lymphocytes Absolute Auto 1400 /uL (1100-4500); Lymphocytes Percent Auto 18.8 % (25-40); Mean Corpuscular HGB Conc 32.2 % (30-36); Mean Corpuscular Hemoglobin 26.4 PG (26-34); Mean Corpuscular Volume 82.1 fL (80-100); Monocytes Absolute Auto 800 /uL (0-900); Monocytes Percent Auto 11.2 % (3-14); Neutrophils Absolute Auto 4500 /uL (1500-7000); Neutrophils Percent Auto 61.3 % (50-75); Platelet Count 240 X10^3/uL (150-400); Red Blood Cell Count 5.25 X10^6/uL (4.5-5.9); Red Cell Distribution Width 15.3 % (11.6-14.8); White Blood Cell Count 7.3 X10^3/uL (4.5-11.0)
[2020-11-04 10:05] LABS: Alanine Aminotransferase 23 IU/L (<50); Albumin 3.8 g/dL (3.5-5.0); Albumin Globulin Ratio 1.4 (1.0-2.8); Alkaline Phosphatase 79 U/L (38-126); Aspartate Aminotransferase 28 IU/L (17-59); Bilirubin Total 0.3 mg/dL (0.2-1.3); Blood Urea Nitrogen 11 mg/dL (9-20); Calcium 8.3 mg/dL (8.4-10.2); Carbon Dioxide 24 mmol/L (22-32); Chloride 108 mmol/L (98-107); Creatine Kinase 43 U/L (55-170); Estimated Glomerular Filt Rate > 60.0 mL/min (>60); Globulin 2.8 g/dL (1.7-4.1); Glucose 123 mg/dL (80-110); HEMOLYSIS 16 (0-50); Potassium 4.3 mmol/L (3.4-5.1); Sodium 138 mmol/L (137-145); Total Protein 6.6 g/dL (6.3-8.2)
[2020-11-04 10:10] LABS: COVID19 -Nasal RAPID Negative (Negative)
[2020-11-04 10:17] LABS: Troponin I < 0.012 ng/mL (0.01-0.034)
--- NOTE | 2020-11-04 10:22 | ED_ITS ---
HPI - Dizziness General Chief Complaint: Dizziness Stated Complaint: Dizziness Time Seen by Provider: 11/04/20 09:45 Source: patient Mode of arrival: Ambulatory Limitations: no limitations History of Present Illness HPI Narrative: Patient is a 60-year-old male with history of hypothyroidism presenting today with on going worsening dizziness. He said he has been dizzy off and on for a few weeks however today when he got to work he was extremely dizzy. He is having difficulty walking saying that the floor seems un stable. He has no double vision or loss of vision. No numbness tingling or weakness. He was able to drive himself here to the emergency department today. He has no chest pain or palpitations. He has had some mild body aches. He does have his COVID vaccine. No fever or chills. He has had some mild abdominal pain it is not any worse today. He previously had an umbilical hernia repair with mesh in it he had an outpatient CT at at outside facility 4 days ago. He says he has not had any nausea or vomiting. Pain is really not any worse. Related Data Home Medications Medication Instructions Recorded Confirmed esomeprazole magnesium 20 mg See Rx Instructions .ROUTE .COMPLEX 02/26/18 06/21/18 capsule,delayed release (Nexium) levothyroxine 100 mcg PO DAILY 02/26/18 06/21/18 atenolol 25 mg tablet 25 mg PO DAILY 06/05/18 06/21/18 atorvastatin 40 mg tablet 40 mg PO DAILY 06/05/18 06/21/18 cetirizine 10 mg tablet 10 mg PO DAILY 06/05/18 06/21/18 metoclopramide HCl 5 mg PO PRN PRN 06/05/18 06/21/18 ranitidine HCl 150 mg PO BID 06/05/18 06/21/18 Previous Rx's Medication Instructions Recorded L.acidophilus-L.bulgar-B.bifid-S.thermoph 1 ea PO TIDWM #90 tab 06/16/18 1 billion cell-250 mg tablet (Bacid) acetaminophen 500 mg capsule 975 mg PO Q6H PRN #20 cap 06/16/18 oxycodone 5 mg tablet 5 mg PO Q4HR PRN #8 tab 06/16/18 hydrocodone 5 mg-acetaminophen 325 1 tab PO Q4H PRN #10 tab 10/21/18 mg tablet levofloxacin 500 mg tablet 500 mg PO DAILY #14 tab 10/21/18 (Levaquin) metronidazole 500 mg tablet 500 mg PO BID #28 tab 10/21/18 (Flagyl) meclizine 25 mg tablet 25 mg PO TID PRN #10 tab 11/04/20 ondansetron 4 mg disintegrating 4 mg PO Q8H PRN #10 tab 11/04/20 tablet Allergies Allergy/AdvReac Type Severity Reaction Status Date / Time Penicillins Allergy Verified 11/04/20 09:45 Review of Systems Review of Systems Narrative: GENERAL: Denies chills, fatigue, malaise, fever, sweats, travel HEENT: Denies sinus pain, ear pain, sore throat, difficulty swallowing, neck pain RESPIRATORY: Denies dyspnea, cough, wheezing, hemoptysis, sputum. CARDIOVASCULAR: Denies chest pain, palpitations, orthopnea, edema GASTROINTESTINAL: See HPI : Denies dysuria, frequency, incontinence, hematuria, urinary retention, flank pain. MUSCULOSKELETAL: Denies weakness, joint pain, or bony pain SKIN: No rash, no erythema, no pruritus NEUROLOGIC: See HPI PSYCHIATRIC: No concerning psychosocial issues. 12 point review of systems is negative except for those stated above and HPI Patient History Medical History (Updated 11/04/20 @ 11:26 by Rubi Trotter DO) Acid reflux Colon polyps Hemophilia A HTN (hypertension) Hypercholesteremia Hypothyroid Surgical History No pertinent past surgical history Social History household members: family Smoking Status: Former smoker alcohol intake: current Smoking Status: Former smoker alcohol intake frequency: holidays/special occasions only Substance Use Type: does not use Exam Initial Vital Signs Initial Vital Signs: Vital Signs Temperature 98.1 F 11/04/20 09:30 Pulse Rate 57 L 11/04/20 09:30 Respiratory Rate 14 11/04/20 09:30 Blood Pressure 174/83 H 11/04/20 09:30 Pulse Oximetry 98 11/04/20 09:30 GENERAL: Alert well-appearing 60-year-old maleand in no acute distress. HEENT: Head atraumatic,EOMI, pupils reactive, face symmetric, moist mucous membranes CARDIOVASCULAR: Regular rate and rhythm without murmurs, rubs or gallops. RESPIRATORY: Breath sounds equal bilaterally, no wheezes rales or rhonchi. ABDOMEN: Soft, very minimal periumbilical pain Normoactive bowel sounds all 4 quadrants. No guarding or rebound. EXTREMITIES: Normal range of motion, no clubbing or edema. Neurovascularly intact NEUROLOGICAL: Alert and oriented x4.Normal gait and speech. Cranial nerves II through XII grossly intact. Good [id number], good [id number], strength equal bilaterally, no dysarthria or aphasia, sensation in tact to soft touch bilaterally, no visual changes, no facial droop SKIN: Warm, dry, no laceration, no petechiae, no rashes or lesions. Course Orders Ordered: ED Orders 11/04/20 10:22 CT head/brain wo con Stat Discontinued Medications Meclizine HCl (Meclizine Hcl 12.5 Mg Tablet) 25 mg PO NOW ONE Stop: 11/04/20 10:23 Last Admin: 11/04/20 10:52 Dose: 25 mg Documented by: AMANDA Ondansetron HCl (Ondansetron 4 Mg/2 Ml Inj) 4 mg IV NOW ONE Stop: 11/04/20 10:23 Last Admin: 11/04/20 10:52 Dose: 4 mg Documented by: AMANDA Vital Signs Vital signs: Vital Signs - 8 hr 11/04/20 11:30 Pulse Rate 53 L Respiratory Rate 21 Blood Pressure 157/85 H MDM - Dizziness Lab Data Result diagrams: 11/04/20 09:40 11/04/20 09:40 Labs: Lab Results 11/04/20 11/04/20 11/04/20 Range/Units 09:40 09:40 09:40 WBC 7.3 (4.5-11.0) X10^3/uL RBC 5.25 (4.5-5.9) X10^6/uL Hgb 13.9 (13.5-17.5) g/dL Hct 43.1 (41-53) % MCV 82.1 (80-100) fL MCH 26.4 (26-34) PG MCHC 32.2 (30-36) % RDW 15.3 H (11.6-14.8) % Plt Count 240 (150-400) X10^3/uL Neut % (Auto) 61.3 (50-75) % Lymph % (Auto) 18.8 L (25-40) % [place] % (Auto) 11.2 (3-14) % Eos % (Auto) 7.3 H (2-4) % Baso % (Auto) 1.4 (0-2) % Neut # (Auto) 4500 (7920-8983) /uL Lymph # (Auto) 1400 (9917-0862) /uL [place] # (Auto) 800 (0-900) /uL Eos # (Auto) 500 H (0-450) /uL Baso # (Auto) 100 (0-100) /uL Sodium 138 (137-145) mmol/L Potassium 4.3 (3.4-5.1) mmol/L Chloride 108 H (98-107) mmol/L Carbon Dioxide 24 (22-32) mmol/L BUN 11 (9-20) mg/dL Creatinine 0.61 L (0.66-1.25) mg/dL Estimated GFR > 60.0 (>60) mL/min BUN/Creatinine Ratio 18.0 (6-22) Glucose 123 H (80-110) mg/dL Calcium 8.3 L (8.4-10.2) mg/dL Magnesium 2.0 (1.6-2.3) mg/dL Total Bilirubin 0.3 (0.2-1.3) mg/dL AST 28 (17-59) IU/L ALT 23 (<50) IU/L Alkaline Phosphatase 79 (38-126) U/L Total Creatine Kinase 43 L (55-170) U/L CK-MB (CK-2) TNP CK-MB (CK-2) Rel Index TNP Troponin I < 0.012 (0.01-0.034) ng/mL Total Protein 6.6 (6.3-8.2) g/dL Albumin 3.8 (3.5-5.0) g/dL Globulin 2.8 (1.7-4.1) g/dL Albumin/Globulin Ratio 1.4 (1.0-2.8) TSH 2.19 (0.47-4.68) uIU/mL SARS-CoV-2 (PCR) (Negative) 11/04/20 Range/Units 09:41 WBC (4.5-11.0) X10^3/uL RBC (4.5-5.9) X10^6/uL Hgb (13.5-17.5) g/dL Hct (41-53) % MCV (80-100) fL MCH (26-34) PG MCHC (30-36) % RDW (11.6-14.8) % Plt Count (150-400) X10^3/uL Neut % (Auto) (50-75) % Lymph % (Auto) (25-40) % [place] % (Auto) (3-14) % Eos % (Auto) (2-4) % Baso % (Auto) (0-2) % Neut # (Auto) (5108-8474) /uL Lymph # (Auto) (1337-7647) /uL [place] # (Auto) (0-900) /uL Eos # (Auto) (0-450) /uL Baso # (Auto) (0-100) /uL Sodium (137-145) mmol/L Potassium (3.4-5.1) mmol/L Chloride (98-107) mmol/L Carbon Dioxide (22-32) mmol/L BUN (9-20) mg/dL Creatinine (0.66-1.25) mg/dL Estimated GFR (>60) mL/min BUN/Creatinine Ratio (6-22) Glucose (80-110) mg/dL Calcium (8.4-10.2) mg/dL Magnesium (1.6-2.3) mg/dL Total Bilirubin (0.2-1.3) mg/dL AST (17-59) IU/L ALT (<50) IU/L Alkaline Phosphatase (38-126) U/L Total Creatine Kinase (55-170) U/L CK-MB (CK-2) CK-MB (CK-2) Rel Index Troponin I (0.01-0.034) ng/mL Total Protein (6.3-8.2) g/dL Albumin (3.5-5.0) g/dL Globulin (1.7-4.1) g/dL Albumin/Globulin Ratio (1.0-2.8) TSH (0.47-4.68) uIU/mL SARS-CoV-2 (PCR) Negative (Negative) Point of Care Testing Glucose POC [address] scan - head: Radiologist's Impression: PROCEDURE:? CT HEAD/BRAIN WO CON ? INDICATIONS:? dizzy ? TECHNIQUE:? Noncontrast 4.5 mm thick angled axial sections acquired from the foramen magnum to the vertex, with coronal and sagittal reformats.? For radiation dose reduction, the following was used:? automated exposure control, adjustment of mA and/or kV according to patient size.? ? COMPARISON:? [facility], CT, CT HEAD/BRAIN WO/W CON, 04/12/2020, 13:46. ? FINDINGS:? Image quality:? Excellent.? ? CSF spaces:? Basal cisterns are patent.? No extra-axial fluid collections.? Ventricles are normal in size and shape.? ? Brain:? No intracranial hemorrhage, mass, or mass effect.? Corona-white matter interface appears preserved.? ? Skull and face:? Calvarium and visualized facial bones are intact, without suspicious lesions.? ? Sinuses:? Visualized sinuses and mastoids are clear.? ? IMPRESSION:? ? 1. No acute intracranial abnormality.? ? ? Dictated by: Cameron Brown M.D. on 11/04/2020 at 10:41 ? ? Approved by: Cameron Brown M.D. on 11/04/2020 at 10:42 ? Chest x-ray: Radiologist's Impression: PROCEDURE:? XR CHEST 1V ? INDICATIONS:? dizzy/shortness of breath ? TECHNIQUE:? One view of the chest was acquired.? ? COMPARISON:? [facility], CT, CT ABDOMEN PELVIS WITH CONTRAST, 11/01/2020, 12:49.? [facility], CR, XR CHEST 2V, 02/27/2018, 7:46.? [facility], CR, XR CHEST 1V, 05/30/2018, 14:17. ? FINDINGS:? ? Surgical changes and devices:? None.? ? Lungs and pleura:? Low lung volumes are noted. This causes a crowded appearance to the lung markings and limits evaluation.? On this semiupright portable chest examination, no large pneumothorax or large pleural effusions are seen.? No focal infiltrates are seen.? ? Mediastinum:? The cardiac contours are within normal limits. The aorta demonstrates calcification and tortuosity. ? Bones and chest wall:? Age-appropriate bony degenerative changes are seen.? No suspicious bony lesions.? Overlying soft tissues appear unremarkable.? ? ? IMPRESSION:? ? Portable chest within normal limits. ? ? ? Dictated by: Jesus Caputo M.D. on 11/04/2020 at 8:58 ? ? ECG Data Interpretation: Normal sinus rhythm rate 52 p.r. interval 166 QRS [address] changes or T-wave inversion MDM Narrative Medical decision making narrative: Patient has no focal deficit symptoms have been ongoing off and on for a number of weeks but worse today. Feeling much better after meclizine. Symptoms most consistent with vertigo. Head CT and blood work is negative. He is ambulatory without difficulty. At this time I see no need for further imaging or likely vertigo rather than posterior stroke. Discharge Plan Departure Patient Disposition: Home Clinical Impression: Benign paroxysmal positional vertigo Qualifiers: Laterality: unspecified laterality Qualified Code(s): H81.10 - Benign paroxysmal vertigo, unspecified ear Instructions: Benign Paroxysmal Positional Vertigo Activity Restrictions/Additional Instructions: *You have been diagnosed with benign paroxysmal positional vertigo *What to do: At this time I hope your symptoms improved with medication however you may need ENT referral from your primary care provider. *Continue to take medications as directed Meclizine 25 mg every 8 hours if needed for disease Zofran 4 mg every 8 hours if needed for nausea vomiting *Follow up with your primary care provider in 2-3 days *Return to ER if you should have increasing dizziness, inability to walk, persistent vomiting, numbness, tingling weakness, speech difficulty any new, worsening or concerning symptoms Prescriptions: New meclizine 25 mg tablet 25 mg PO TID PRN (Reason: dizziness) Qty: 10 RF: 0 ondansetron 4 mg tablet,disintegrating 4 mg PO Q8H PRN (Reason: nausea and vomiting) Qty: 10 RF: 0 No Action levofloxacin [Levaquin] 500 mg tablet 500 mg PO DAILY Qty: 14 RF: 0 metronidazole [Flagyl] 500 mg tablet 500 mg PO BID Qty: 28 RF: 0 hydrocodone-acetaminophen 5-325 mg tablet 1 tab PO Q4H PRN (Reason: pain) Qty: 10 RF: 0 esomeprazole magnesium [Nexium] 20 mg Capsule,Delayed Release(Dr/Ec) See Rx Instructions .ROUTE .COMPLEX RF: 0 levothyroxine 100 mcg PO DAILY RF: 0 cetirizine 10 mg Tablet 10 mg PO DAILY RF: 0 atorvastatin 40 mg Tablet 40 mg PO DAILY RF: 0 atenolol 25 mg Tablet 25 mg PO DAILY RF: 0 metoclopramide HCl 5 mg PO PRN PRN (Reason: Acid Reflux) RF: 0 ranitidine HCl 150 mg PO BID RF: 0 acetaminophen 500 mg capsule 975 mg PO Q6H PRN (Reason: Abdominal Discomfort) Qty: 20 RF: 0 oxycodone 5 mg Tablet 5 mg PO Q4HR PRN (Reason: Abdominal Discomfort) Qty: 8 RF: 0 Bacid 1 billion cell- 250 mg Tablet 1 ea PO TIDWM Qty: 90 RF: 0 Referrals: Adeline Zimmerman PA-C [Primary Care Provider] -
--- NOTE | 2020-11-04 10:22 | DI.CT.S_ITS ---
PROCEDURE: CT HEAD/BRAIN WO CON INDICATIONS: dizzy TECHNIQUE: Noncontrast 4.5 mm thick angled axial sections acquired from the foramen magnum to the vertex, with coronal and sagittal reformats. For radiation dose reduction, the following was used: automated exposure control, adjustment of mA and/or kV according to patient size. COMPARISON: [facility], CT, CT HEAD/BRAIN WO/W CON, 04/12/2020, 13:46. FINDINGS: Image quality: Excellent. CSF spaces: Basal cisterns are patent. No extra-axial fluid collections. Ventricles are normal in size and shape. Brain: No intracranial hemorrhage, mass, or mass effect. Corona-white matter interface appears preserved. Skull and face: Calvarium and visualized facial bones are intact, without suspicious lesions. Sinuses: Visualized sinuses and mastoids are clear. IMPRESSION: 1. No acute intracranial abnormality. Dictated by: Cameron Brown M.D. on 11/04/2020 at 10:41 Approved by: Cameron Brown M.D. on 11/04/2020 at 10:42
[2020-11-04] MEDS: ONDANSETRON 4 MG/2 ML INJ IV (10:52)
[2020-11-04] MEDS: MECLIZINE HCL 12.5 MG TABLET 25 MG PO (10:52)
[2020-11-04 11:00] LABS: TSH w/ Reflex to FT4 2.19 uIU/mL (0.47-4.68)
== END 2020-11-04 11:39 | disposition home or self-care (01) ==
PROVIDERS: Emergency Provider Emergency Medicine; PCP Physician Assistant
DX: H81.10 Benign paroxysmal vertigo, unspecified ear (principal); Z20.822 Contact with and (suspected) exposure to COVID-19
CPT/HCPCS: 36415; 70450; 71045; 80053; 82550; 82962; 83735; 84443; 84484; 85025; 87635; 93005; 96374; 99284; 99285; C9803; J2405